=== PATIENT | female | born 1965 | race Caucasian/White ===

== ENCOUNTER 2019-05-05 09:00 | Outpatient (CLI) | payer OTHER, SELFPAY ==
[2019-05-05 09:38] LABS: Hematocrit 32.2 % (37.0-47.0); Hemoglobin 10.3 g/dL (12.0-15.0)
[2019-05-05 10:12] LABS: Iron 90 ug/dL (37-170)
[2019-05-05 10:22] LABS: Percent Iron Saturation 28 % (20-50)
[2019-05-05 10:56] LABS: Folic Acid 11.8 ng/mL (2.76->20)
== END 2019-05-05 09:01 | disposition home or self-care (01) ==
DX: D64.9 Anemia, unspecified (principal)
CPT/HCPCS: 36415; 82607; 82728; 82746; 83540; 83550; 85014; 85018

== ENCOUNTER 2019-05-06 12:37 | Outpatient (CLI) | payer OTHER, SELFPAY ==
[2019-05-06 14:14] LABS: IFOB Positive Control Positive; Immunochemical Fecal Occult Bl Negative (N)
== END 2019-05-06 12:38 | disposition home or self-care (01) ==
DX: D64.9 Anemia, unspecified (principal)
CPT/HCPCS: 82274

== ENCOUNTER 2019-07-02 01:34 | Observation (INO) | payer OTHER, SELFPAY ==
[2019-07-02] VITALS (19 sets, daily range): BP systolic 97–185; BP diastolic 62–92; PULSE 70–122; RESP 14–26; TEMP 36.2–37.2; O2SAT 94–100; BMI 31.7
--- NOTE | 2019-07-02 | ECHO_ITS ---
Patient Info Name: Viviane Escalera Age: 53 years : 1965 Gender: Female Ht: 64 in Wt: 185 lbs BSA: 1.98 m2 HR: 75 bpm BP: 116 / 85 mmHg Heart Rhythm: Sinus Rhythm Technical Quality: Good Exam Date: 07/02/2019 2:08 PM Exam Location: [facility] Patient Status: Inpatient Admit Date: 07/02/2019 Staff Ordering Physician: Vladimir Marquez MD Medical Instrument Technician: Jeremy Mcdonald RDCS Attending Provider: Autumn Francis DO Referring Physician: Alma ALVAREZ; Exam Type: CA echo doppler color flow Study Info Indications I30.9 - Acute pericarditis, unspecified Complete two-dimensional, color flow and Doppler transthoracic echocardiogram is performed. Strain analysis performed. History/Risk Factors Pericarditis; pAfib, CAP, HTN. Summary 1. Left ventricular chamber dimension is normal. 2. Left ventricular systolic function is hyperdynamic, estimated at >70%. 3. There is mildly increased left ventricular wall thickness. 4. Left ventricular septal wall motion is normal. 5. The left ventricular diastolic function is grade I diastolic dysfunction. 6. Global longitudinal strain is normal at -19 %. 7. Left atrial chamber dimension is mildly enlarged. 8. There is mild aortic valve stenosis with a peak velocity of 173 cm/s, mean gradient of 7 mmHg, and aortic valve area of 1.8 cm2. 9. There is mild to moderate aortic valve regurgitation. 10. There is mild aortic valve calcification. 11. There is mild tricuspid valve regurgitation. 12. Mild pulmonary hypertension, estimated pulmonary arterial systolic pressure is 43 mmHg. 13. There is mild pulmonic regurgitation. Left Ventricle Left ventricular chamber dimension is normal. Left ventricular systolic function is hyperdynamic, estimated at >70%. There is mildly increased left ventricular wall thickness. Left ventricular septal wall motion is normal. The left ventricular diastolic function is grade I diastolic dysfunction. Global longitudinal strain is normal at -19 %. Right Ventricle Right ventricular chamber dimension is normal. Right ventricular systolic function is normal. Left Atria Left atrial chamber dimension is mildly enlarged. Right Atria Right atrial chamber dimension is normal. Atrial Septum Intact interatrial septum visualized by color flow imaging. Aortic Valve The aortic valve is trileaflet. There is mild aortic valve stenosis with a peak velocity of 173 cm/s, mean gradient of 7 mmHg, and aortic valve area of 1.8 cm2. There is mild to moderate aortic valve regurgitation. There is mild aortic valve calcification. Pulmonic Valve The pulmonic valve is normal. There is no pulmonic valve stenosis. There is mild pulmonic regurgitation. Mitral Valve The mitral valve has normal leaflets. There is no mitral valve stenosis. There is trace mitral valve regurgitation. Tricuspid Valve The tricuspid valve leaflets are normal. There is no significant tricuspid valve stenosis. There is mild tricuspid valve regurgitation. Mild pulmonary hypertension, estimated pulmonary arterial systolic pressure is 43 mmHg. Pericardium/Pleural The pericardium appears normal. There is no pericardial effusion. Inferior Vena Cava Normal inferior vena cava with >50% collapse upon inspiration consistent with normal right atrial pressure, 5 mmHg. Aorta The aortic root size at the sinus of Valsalva is normal. The prox ascending aorta size is normal. Left Ventricular Outfl
--- NOTE | ~2019-07-02 | XR_ITS ---
EXAMINATION: XR chest 1V portable DATE: 07/02/2019 02:09 INDICATION: Midline chest pain TECHNIQUE: frontal view of the chest was obtained. COMPARISON: Chest radiograph dated 06/12/[address] dated 11/28/2017 FINDINGS: No significant interval change in diffuse basilar predominant coarse reticular opacities. No pleural effusion or pneumothorax. The cardiomediastinal silhouette is normal. Visualized bones and soft tissu es are unremarkable. IMPRESSION: 1. Slight increase in the basilar predominant coarse interstitial pattern most likely chronic interst itial fibrosis with either nonspecific interstitial pneumonia (NSIP) or desquamative interstitial pne umonia (DIP) pattern on prior chest CT. Superimposed more acute mild pulmonary edema or pneumonia not excludable. Reviewed, dictated and finalized at location A. IMPRESSION: 1. Slight increase in the basilar predominant coarse interstitial pattern most likely chronic interstitial fibrosis with either nonspecific interstitial pneum onia (NSIP) or desquamative interstitial pneumonia (DIP) pattern on prior chest CT. Superimposed more acute mild pulmonary edema or pneumonia not excludable.
--- NOTE | ~2019-07-02 | CT_ITS ---
EXAMINATION: CT abdomen pelvis w con DATE: 07/02/2019 03:19 INDICATION: Mid abdominal pain. Recent hernia surgery. TECHNIQUE: Computed tomography (CT) of the abdomen and pelvis was performed with 100 mL Omnipaque-350 intravenous contrast. Automated exposure control and iterative reconstruction technique were employe d. The dose-length product was 876.71 mGy-cm. COMPARISON: None FINDINGS: Chronic patchy groundglass opacities and septal line thickening throughout the bilateral lower lung z ones. Heart size is normal. No pericardial or pleural effusion. Small sliding-type hiatal hernia. Nataliia er, gallbladder, spleen, pancreas, bilateral adrenal glands and right kidney are normal. There are co uple left renal cysts the larger measuring 1.5 cm. Postoperative change of prior partial colectomy wi th anastomotic suture line along the distal colon. Scarring along the left lower quadrant anterior ab dominal wall likely at the site of a prior colostomy. Mild inflammatory stranding surrounding an ovoi d region of fat attenuation with central vessel located along the hepatic flexure of colon abutting t he fundus of the gallbladder most consistent with epiploic appendagitis. A couple similar-appearing r egions also suspicious for epiploic appendicitis along the distal transverse colon and greater curvat ure of the stomach. Small bowel and appendix are normal. Bladder is normal. The uterus is not identif ied and has likely been surgically resected. Small fat-containing left inguinal hernia. No free intra peritoneal gas or fluid. No pathologically enlarged abdominal or pelvic lymphadenopathy. No abscess o r free intraperitoneal gas or fluid. Bones are unremarkable. IMPRESSION: 1. Mild inflammatory stranding surrounding 3 small ovoid region of fat attenuation in the left and ri ght upper quadrants most consistent with epiploic appendagitis/fat necrosis. 2. Chronic bibasilar lung disease which could represent mild pulmonary edema, atelectasis or more chr onic interstitial fibrosis with nonspecific interstitial pneumonia (NSIP) or discriminative interstit ial pneumonia (DIP) pattern. Reviewed, dictated and finalized at location A. IMPRESSION: 1. Mild inflammatory stranding surrounding 3 small ovoid region of fat attenuat ion in the left and right upper quadrants most consistent with epiploic appenda gitis/fat necrosis. 2. Chronic bibasilar lung disease which could represent mild pulmonary edema, a telectasis or more chronic interstitial fibrosis with nonspecific interstitial pneumonia (NSIP) or discriminative interstitial pneumonia (DIP) pattern.
--- NOTE | 2019-07-02 01:43 | ECG_ITS ---
Measurements Intervals [place] Rate: 86 P: 30 TX: 157 QRS: -36 QRSD: 110 T: 38 QT: 364 QTc: 435 Interpretive Statements SINUS RHYTHM LEFT AXIS DEVIATION POOR R WAVE PROGRESSION, ANTERIOR LEADS BASELINE WANDER- II, III, AVF, V3-V6 BORDERLINE ECG Electronically Signed On 07-02-2019 7:20:52 CDT by Ayush Stewart D.O.
--- NOTE | 2019-07-02 01:58 | ED.CHESTPAIN ---
HPI - Chest Pain General Chief Complaint: Chest Pain Stated Complaint: cp Time Seen by Provider: 07/02/19 01:40 Source: RN notes reviewed History of Present Illness HPI narrative: Patient presents emergency department from home for chest pain. Patient states that pain woke her from sleep approximately 12:30 AM. The pain is located in the lower midsternal chest with radiation into the upper abdomen and in between the shoulder blades. The pain is described as sharp and stabbing patient notes associated nausea. Denies any fevers or chills vomiting or any other symptoms. Patient states she is chronically on 2 L nasal cannula history of pulmonary fibrosis Related Data Home Medications Medication Instructions Recorded Confirmed albuterol sulfate 07/02/19 atorvastatin 07/02/19 diltiazem HCl PO 07/02/19 fluticasone propionate INTRANASAL 07/02/19 furosemide 07/02/19 hydrocodone-acetaminophen tablet 07/02/19 ibuprofen 07/02/19 isosorbide mononitrate mg PO 07/02/19 lisinopril 07/02/19 mometasone-formoterol [Dulera] INHALATION 07/02/19 nitroglycerin mg 07/02/19 potassium chloride meq PO 07/02/19 sennosides-docusate sodium PO 07/02/19 [Senokot-S] sertraline mg 07/02/19 umeclidinium [Incruse Ellipta] INHALATION 07/02/19 Allergies Allergy/AdvReac Type Severity Reaction Status Date / Time No Known Allergies Allergy Verified 07/02/19 01:43 Review of Systems Review of Systems: Narrative: Gen.: Denies fevers or chills Eyes: Denies eye pain or visual change ENT: Denies congestion Respiratory: Denies shortness of breath or cough CV: Reports chest pain GI: Reports abdominal pain no nausea denies vomiting denies burning, urgency, frequency or hematuria Musculoskeletal: Denies back pain or muscle pain Neuro: Denies numbness, tingling, weakness or focal weakness Skin: Denies rash Except as documented, all other systems reviewed and negative [facility] Past Medical History Medical History (Updated 07/02/19 @ 05:28 by Marcelino Mcghee DO) Atrial fibrillation Hypertension Pulmonary fibrosis Social History Social History Smoking status: Heavy tobacco smoker Gender identity (if verbalized by the patient): Female Exam Narrative: Exam Narrative: APPEARANCE: No acute distress, nontoxic, resting in bed EYES: EOMI HEENT: Normocephalic, atraumatic, OMM RESPIRATORY: No respiratory distress Clear to auscultation bilaterally with no rhonchi wheezing or rales. CARDIOVASCULAR: Regular rate and rhythm without murmurs rubs or gallops. ABDOMINAL: Soft, nondistended, tender palpation epigastric and right upper quadrant left upper quadrant, no no tenderness in right lower quadrant left lower quadrant, no rebound or guarding MUSCULOSKELETAl: Moves all extremities. No clubbing, cyanosis or edema. NEURO: Awake and alert. Following commands, speech normal, no focal deficits SKIN:: Warm, dry. No rashes lesions or abrasions PSYCHIATRIC: Normal affect/mood, Course Course Emergency Course: Patient has minimal change with GI cocktail and Tylenol states pain is resolved following morphine Discussed with patient her x-ray and CT she states she has had no more cough than normal Discussed with Dr. yost presentation work-up. Agrees admission at this time. Agrees with plan for COVID testing and to treat patient with antibiotics as patient currently does have white count with CT scan showing groundglass opacities in lingula Discussed with patient and family results of workup and diagnosis. Discussed need for admission. Patient and family understand and agree to current treatment plan Vital Signs Vital signs: Vital Signs Temperature 99.0 F 07/02/19 01:38 Pulse Rate 89 07/02/19 01:38 Respiratory Rate 26 H 07/02/19 01:38 Blood Pressure 185/84 H 07/02/19 01:38 Pulse Oximetry 100 07/02/19 01:38 Temperature 99.0 F 07/02/19 01:38 Pulse Rate 91
[2019-07-02] MEDS: ONDANSETRON INJ 4 MG/2 ML VIAL IV PUSH ×2 (02:14→12:00)
[2019-07-02 02:26] LABS: Basophils Absolute Auto 0.1 K/mm3 (0.0-0.1); Basophils Percent Auto 0.6 % (0.2-1.2); Eosinophils Absolute Auto 0.3 K/mm3 (0-0.3); Hematocrit 37.9 % (37.0-47.0); Hemoglobin 12.4 g/dL (12.0-15.0); Immature Granulocyte Absolute 0.05 K/mm3 (0.00-0.031); Immature Granulocyte Percent A 0.3 % (0-0.5); Lymphocytes Absolute Auto 3.28 K/mm3 (0.9-3.2); Lymphocytes Percent Auto 20.4 % (18.3-44.2); Mean Corpuscular HGB Conc 32.7 g/dl (32-36); Mean Corpuscular Hemoglobin 30.9 pg (26-34); Mean Corpuscular Volume 94.5 fl (80-100); Mean Platelet Volume 10.5 fl (7.4-10.4); Monocytes Absolute Auto 1.2 K/mm3 (0.1-0.6); Monocytes Percent Auto 7.5 % (2.6-8.5); Neutrophils Absolute Auto 11.1 K/mm3 (1.3-6.7); Neutrophils Percent Auto 69.2 % (45.5-73.1); Platelet Count Result 353 k/mm3 (150-375); Red Blood Count 4.01 M/mm3 (4.2-5.4); Red Cell Distribution Width 12.9 % (11.5-14.5); White Blood Count 16.1 K/mm3 (4.5-10.0)
[2019-07-02 02:30] LABS: INR 0.9; Prothrombin Time 12.3 Seconds (11.1-14.7)
[2019-07-02 02:33] LABS: Alanine Aminotransferase 13 U/L (4-35); Albumin Level 4.3 g/dL (3.5-5.1); Alkaline Phosphatase 80 U/L (38-126); Aspartate Amino Transferase 22 U/L (14-36); Bilirubin,Total 0.1 mg/dL (0.2-1.3); Blood Urea Nitrogen 26 mg/dL (7-17); Calcium 9.1 mg/dL (8.4-10.2); Carbon Dioxide 28 mmol/L (22-30); Chloride 104 mmol/L (98-107); Estimated Glomerular Filt Rate 43; Glucose 106 mg/dL (65-105); Lipase 121 U/L (23-300); Potassium 3.7 mmol/L (3.4-5.0); Sodium 137 mmol/L (137-145)
[2019-07-02 02:43] LABS: Troponin I < 0.012 ng/mL (0.000-0.034)
[2019-07-02] MEDS: MORPHINE SULFATE 4 MG/ML INJ IV PUSH (04:07)
[2019-07-02] MEDS: ASPIRIN 81 MG CHEWABLE TABLET 324 MG PO (05:17)
--- NOTE | 2019-07-02 06:00 | ADMIMU ---
This patient, Viviane Escalera, was admitted to IMU status, and placed in Intensive Care Unit-6. Patient/family oriented to hospital policies and general routines including ID bracelet, bed and alarms, visiting hours, pain management, procedures, bathroom and other care routines, personal items, smoking policy, room service/diet, and visiting hours. Valuables list has been completed. Information on how to activate the Rapid Response Team has been discussed. Patient/Family are encouraged to report perceived risks to care and to ask questions if they do not understand what they are told or what they should do.
[2019-07-02] MEDS: FLUTICASONE PROPIONATE 0.05% NA SPR 16 GM BTL (*BKC) 2 SPRAY NASAL (09:23)
[2019-07-02] MEDS: ENOXAPARIN 40 MG/0.4 ML SYRINGE SUB-Q (09:24)
[2019-07-02] MEDS: POTASSIUM CHLORIDE 10 MEQ TABLET.ER PO (09:24)
[2019-07-02] MEDS: ATORVASTATIN 40 MG TABLET PO (09:24)
[2019-07-02 10:09] LABS: D Dimer 0.35 ug/mL (<0.48)
[2019-07-02 10:13] LABS: CRP 3.8 mg/dL (<1.0); Lactate Dehydrogenase 639 U/L (313-618)
[2019-07-02 10:20] LABS: Troponin I < 0.012 ng/mL (0.000-0.034)
--- NOTE | 2019-07-02 10:27 | PM.CNCAR ---
Assessment and Plan Additional Plan 53-year-old white female with: Acute onset of central chest pain awakening her from sleep at 2:00 a.m. in the morning. She describes a definite positional nature to the symptoms and appears to have a pericardial friction rub on exam. Her electrocardiogram however does not show the acute diffuse ST elevation of acute pericarditis. There is no evidence of an acute coronary syndrome. I am going to recommend treating this patient as though she has pericarditis with anti-inflammatory medication and colchicine for the time being. Her biomarkers will be followed and hopefully they will remain negative. She reports a history of paroxysmal atrial fibrillation for about 5 or 6 years she is currently in sinus rhythm and has not been on any medical therapy for her cardiac arrhythmia. Patient also carries the diagnosis of chronic interstitial pulmonary fibrosis which is interesting if she now may be presenting with pericardial symptoms. Moises Serna MD [facility] History of Present Illness History of Present Illness Consult date/time: Date of service: 07/02/19 10:27 Consult reason: chest pain Reason For Visit: Chest Pain, Community Aquired Pneumonia Narrative: This is a 53-year-old woman who I am told we are consulted to see because of chest pain. The chart does not indicate that anyone from primary Service has seen the patient and I really do not see a formal order on the chart ordering a consult but we were contacted through our nurse practitioner this morning. In any event this is a lady who is not known to me prior to this consultation. She awakened at 2:00 a.m. in the morning at her home because of chest pain she describes a relatively severe central substernal chest pain with radiation into the back into the interscapular region. The discomfort awakened her from sleep and was moderate to severe. She noticed no other associated symptoms such as air hunger diaphoresis or radiation of the pain anywhere else. She thought the symptoms might settle down she tried taking some antacids with no relief and eventually her took her to the emergency room to be evaluated. In the emergency room she was evaluated and admitted to the ICU for further assessment of this and according to what I understand to rule out Coronavirus. The patient is not known to have coronary artery disease. She states that she does follow with a classroom technology technician at [facility] because of a history of paroxysmal atrial fibrillation. She states she has had this diagnosis for about 5-6 years. She is not on any antiarrhythmic agents nor she anticoagulated. She states both of these issues were discussed with her by her classroom technology technician and it was determined at this time to avoid these agents. She can't really tell me if she has had any diagnosis made in terms of a cardiac structural reason for her atrial fibrillation. Presumably not since she has not been anticoagulated. She is not known to have any coronary artery disease or significant valvular disease she indicated to me that she thought her last echocardiogram by her classroom technology technician demonstrated modest aortic valve regurgitation. She is known to have chronic lung disease she was found to have chronic pulmonary fibrosis by a clinical evaluation and lung biopsy within the last 1-2 years at [facility]. She also is known to have diverticulosis/diverticulitis of the colon. She underwent a colon resection with a Jakub's pouch and then a revision takedown procedure about 6 months after the colon resection about 2 years previous. She is known to have hypertension she states she has no knowledge of diabetes or dyslipidemia. She states now that her chest pain is much less severe than it was in the middle of the night but still there. Her electrocardiogram does not show any acute changes of injury or ischemia. She has a troponin level on the record which is negative. Subsequent trop
--- NOTE | 2019-07-02 11:25 | PM.IMHP ---
H&P: HPI History of Present Illness Chief complaint: Chest Pain, Community Aquired Pneumonia Narrative: Date of visit 07/01. Viviane Escalera is a 53 year old female with history of pulmonary fibrosis chronic respiratory failure on 2 L nasal cannula level sleep at approximately 12:30 a.m. today with what she described is initially have a sensation in her lower center chest which became very sharp radiating to her back which was aggravated by deep inspiration or lying down. Got some relief from leaning to following. She did has some nausea but no diaphoresis or shortness of breath. Never had pain like this in the past. Had been evaluated for ischemic disease by nuclear stress test in the past that have always been negative, the last being approximately 2-3 years ago. Never anticoagulated or on antiarrhythmics . Cough has not changed from her chronic underlying cough and no fever or chills. Review of Systems Review of Systems: Narrative: Constitutional weight has gone down some but she says her appetite has been very good and no fever chills Eye no double vision [place] Mouth no pharyngitis laryngitis Pulmonary as per present illness CV no palpitations with the present illness no pedal edema GI does has some dysphagia intermittently usually with solid foods and has had EGDs in the past last been about 3 years ago no dysuria no hematuria Muscle skeletal no joint discomfort per se Integument no skin breakdown rashes Neuropsych no seizures no syncope PMFSH Past Medical History Medical History (Updated 07/02/19 @ 11:30 by Vladimir Marquez MD) Atrial fibrillation Community acquired pneumonia Hypertension Pulmonary fibrosis Surgical History Surgical History (Updated 07/02/19 @ 11:30 by Vladimir Marquez MD) H/O partial resection of colon History of lung biopsy Family History Family History (Updated 07/02/19 @ 11:32 by Vladimir Marquez MD) Mother , age 60, and lung ca Breast cancer of Breast Cancer. Father , metastatic carcinoma unknown primary at age 49 Lung cancer Sibling Brain cancer Social History Social History Smoking status: Former smoker Tobacco type: cigarettes Alcohol intake: never Substance use: never Gender identity (if verbalized by the patient): Female Spiritual care concerns: No Meds Home Medications and Allergies Home Medications Medication Instructions Recorded Confirmed Type albuterol sulfate 2.5 mg INHALATION Q4H PRN 07/02/19 07/02/19 History atorvastatin 40 mg PO DAILY 07/02/19 07/02/19 History diltiazem HCl 120 mg PO DAILY 07/02/19 07/02/19 History fluticasone propionate 2 spray INTRANASAL DAILY 07/02/19 07/02/19 History furosemide 20 mg PO DAILY 07/02/19 07/02/19 History hydrocodone-acetaminophen 1 tablet PO Q6H PRN 07/02/19 07/02/19 History ibuprofen 600 mg PO TID PRN 07/02/19 07/02/19 History isosorbide mononitrate 30 mg PO DAILY 07/02/19 07/02/19 History lisinopril 10 mg PO DAILY 07/02/19 07/02/19 History mometasone-formoterol [Dulera] 1 puff INHALATION BID 07/02/19 07/02/19 History nitroglycerin 0.4 mg SUBLINGUAL Q15M PRN 07/02/19 07/02/19 History potassium chloride 10 meq PO DAILY 07/02/19 07/02/19 History sennosides-docusate sodium 1 tablet PO DAILY PRN 07/02/19 07/02/19 History [Senokot-S] Allergies Allergy/AdvReac Type Severity Reaction Status Date / Time No Known Allergies Allergy Verified 07/02/19 01:43 Vital Signs Vital Signs - 24 hr 07/02/19 01:38 07/02/19 01:49 07/02/19 03:35 Temperature 37.2 C Pulse Rate 89 87 90 Respiratory Rate 26 H 19 Blood Pressure 185/84 H 129/69 Pulse Oximetry 100 96 100 07/02/19 04:07 07/02/19 05:36 07/02/19 06:00 Temperature Pulse Rate 91 94 87 Respiratory Rate 20 20 Blood Pressure 143/92 H 113/68 Pulse Oximetry 100 98 07/02/19 08:00 07/02/19 10:00 Temperature 37.0 C Pulse Rate 70 76 Respi
[2019-07-02] MEDS: COLCHICINE 0.6 MG TABLET PO ×2 (11:59→20:52)
[2019-07-02 13:25] LABS: SARS-CoV-2 RNA PCR Negative
--- NOTE | 2019-07-02 14:08 | PC.NURSE ---
Addendum entered by Clara Garcia RN 07/02/19 14:09: Pt transferred at 1335 Original Note: This patient, Viviane Escalera, was transferred to [[id number]] on 07/02/19 at 1408. Personal belongings sent with patient. Belongings list checked and signed with receiving [ ]. Report given to [Yolanda Key RN @ [phone] ]. Appropriate documentation sent with patient. Pt traveled by wheelchair.
[2019-07-02] MEDS: KETOROLAC 10 MG TABLET PO (17:13)
--- NOTE | 2019-07-02 18:56 | PCDIET ---
pt transferred from ICU 6 to room 210 at 1330
[2019-07-03] VITALS (10 sets, daily range): BP systolic 98–118; BP diastolic 61–79; PULSE 69–86; RESP 12–18; TEMP 36.1–37.1; O2SAT 94–98
--- NOTE | 2019-07-03 01:44 | PC.NURSE ---
Pt found to have wrong telemetry box in use. Correct box applied.
[2019-07-03 05:23] LABS: Potassium 4.2 mmol/L (3.4-5.0)
[2019-07-03 05:24] LABS: Basophils Absolute Auto 0.1 K/mm3 (0.0-0.1); Basophils Percent Auto 0.9 % (0.2-1.2); Eosinophils Absolute Auto 0.3 K/mm3 (0-0.3); Eosinophils Percent Auto 3.5 % (0-4.4); Hematocrit 34.4 % (37.0-47.0); Hemoglobin 11.3 g/dL (12.0-15.0); Immature Granulocyte Absolute 0.02 K/mm3 (0.00-0.031); Immature Granulocyte Percent A 0.3 % (0-0.5); Lymphocytes Absolute Auto 2.36 K/mm3 (0.9-3.2); Mean Corpuscular HGB Conc 32.8 g/dl (32-36); Mean Corpuscular Hemoglobin 30.8 pg (26-34); Mean Corpuscular Volume 93.7 fl (80-100); Mean Platelet Volume 10.6 fl (7.4-10.4); Monocytes Percent Auto 13.3 % (2.6-8.5); Neutrophils Absolute Auto 3.9 K/mm3 (1.3-6.7); Platelet Count Result 300 k/mm3 (150-375); Red Blood Count 3.67 M/mm3 (4.2-5.4); White Blood Count 7.6 K/mm3 (4.5-10.0)
[2019-07-03 06:58] LABS: Blood Urea Nitrogen 27 mg/dL (7-17); Calcium 8.7 mg/dL (8.4-10.2); Carbon Dioxide 23 mmol/L (22-30); Chloride 105 mmol/L (98-107); Estimated CRCL calculation 59 ml/min; Estimated Glomerular Filt Rate 58; Glucose 85 mg/dL (65-105); Sodium 135 mmol/L (137-145)
[2019-07-03] MEDS: ENOXAPARIN 40 MG/0.4 ML SYRINGE SUB-Q (10:06)
[2019-07-03] MEDS: FLUTICASONE PROPIONATE 0.05% NA SPR 16 GM BTL (*BKC) 2 SPRAY NASAL (10:06)
[2019-07-03] MEDS: FUROSEMIDE 20 MG TABLET PO (10:07)
[2019-07-03] MEDS: ISOSORBIDE MONONITRATE 30 MG TAB.ER.24H PO (10:07)
[2019-07-03] MEDS: ATORVASTATIN 40 MG TABLET PO (10:07)
[2019-07-03] MEDS: COLCHICINE 0.6 MG TABLET PO (10:07)
[2019-07-03] MEDS: POTASSIUM CHLORIDE 10 MEQ TABLET.ER PO (10:08)
[2019-07-03] MEDS: KETOROLAC 10 MG TABLET PO (10:11)
--- NOTE | 2019-07-03 10:45 | PM.PNCARD ---
Progress Note: A&P Assessment and Plan (1) Chest pain: Code(s): R07.9 - Chest pain, unspecified Status: Acute Assessment and Plan: Troponin negative x3. [place] to be pericarditis. Echocardiogram 07/02/2019: Left ventricular chamber dimension is normal. Left ventricular systolic function is hyperdynamic, estimated at >70%. There is mildly increased left ventricular wall thickness. Left ventricular septal wall motion is normal. The left ventricular diastolic function is grade I diastolic dysfunction. Global longitudinal strain is normal at -19 %. Left atrial chamber dimension is mildly enlarged. There is mild aortic valve stenosis with a peak velocity of 173 cm/s, mean gradient of 7 mmHg, and aortic valve area of 1.8 cm2. There is mild to moderate aortic valve regurgitation. There is mild aortic valve calcification. There is mild tricuspid valve regurgitation. Mild pulmonary hypertension, estimated pulmonary arterial systolic pressure is 43 mmHg. There is mild pulmonic regurgitation. Much improved. Discomfort under her left breast is almost gone. Most discomfort is between her shoulder blades but this is also improved significantly. More comfortable sitting up. Continue nonsteroidal anti-inflammatory (2) Atrial fibrillation: Code(s): I48.91 - Unspecified atrial fibrillation Status: Acute Assessment and Plan: Paroxysmal. Rate is for the most part controlled. She does have some excursions into the 130s. [id number] score is 3 given history of heart failure, HTN and female. Anticoagulation would be recommended. At this time she is being treated with anti-inflammatory. Anticoagulation should be discussed with her primary erisa attorney after the pericarditis resolves. Additional Plan She will follow up with her established erisa attorney [place] to discharge from cardiac standpoint Plan discussed with Dr Logan [id number] 07/03/2019 Subjective Date/time seen: 07/03/19 10:45 Interval history: Follow-up for: Chest pain Date of service: 07/03/2019 Subjective: Feeling much better. Pain under left breast almost completely resolved. The only discomfort she has has is between her shoulder blades. This discomfort is better when she sits up. Does intensify slightly low if she takes in a deep breath. She denied any shortness of breath. No lightheadedness. Review of Systems Constitutional: Constitutional: Denies chills Eyes: Eyes: Reports no additional eye complaints ENT: Reports Normal hearing present and Denies dizziness Cardiovascular: Cardiovascular: Reports chest pain (Almost completely resolved. Most now between shoulder blades) and Denies dyspnea Respiratory: Respiratory: Denies dyspnea Gastrointestinal: Gastrointestinal: Denies abdominal pain, Denies nausea and Denies vomiting Musculoskeletal: Musculoskeletal: Denies back pain Integumentary/Breasts: Skin/Breast: Denies swelling, Denies erythema and Denies rash Neurologic: Reports Normal hearing present Psychiatric: Psychiatric: Denies anxiety and Reports other (Has been under lot of stress) Endocrine: Endocrine: Denies fatigue Hematologic/Lymphatic: Hematologic/Lymphatic: Denies easy bleeding and Denies easy bruising Allergic/Immunologic: Allergic/Immunologic: Reports no additional allergic/immunologic complaints Exam Const: General: no acute distress Other: Awake, alert, in no distress. More comfortable today.. HENMT: Mouth: Yes dry mucous membranes Eyes: Sclera: sclerae normal Pupils: Equal, round and reactive pupils present Neck: Neck: supple and no JVD Resp: Effort & Inspection: normal respiratory effort and able to speak in complete sentences Auscultation: clear to auscultation bilaterally Other: Tubular breath sounds bilaterally Cardio: Rate: regular rate and tachycardic Rhythm: regular rhythm Heart sounds: Rub heart sound present (Resolved) Peripheral pulses: Peripheral pulses 2+ throughout GI: GI Palp: Ye
--- NOTE | 2019-07-04 07:22 | PM.DS ---
DS: Admitting Diagnosis Admitting Diagnosis Admitting Diagnosis: Chest pain, unspecified DS: Discharge Diagnosis Discharge Diagnosis (1) Chest pain: Code(s): R07.9 - Chest pain, unspecified Status: Acute Assessment and Plan: As per cardiology chest pain is positional and and worsen with deep inspiration which is compatible with pericarditis even though EKG showed no evidence. Troponins were negative and it did not appear to be ischemic. CRP borderline elevated. Echo mild and AI with no effusion and Cardiology started anti-inflammatories with colchicine with improvement of symptoms. WBC fell and d/c on naprosyn 500 bid (2) Leukocytosis: Code(s): D72.829 - Elevated white blood cell count, unspecified Status: Acute Assessment and Plan: Elevated white count could be stress, could be secondary to pericarditis, could be infectious. blood cultures were no growth but chronic pulmonary findings difficult to determine if there was an underlying infiltrate so she was empirically treated with antibiotics while here and discharged on 3 more days of levofloxacin 750 daily (3) Pulmonary fibrosis: Code(s): J84.10 - Pulmonary fibrosis, unspecified Status: Acute Assessment and Plan: Appears to be at her baseline. CT scan showed slight worsening of her fibrosis and was question 0f possibility of infiltrate so she is covered with antibiotics. COVID swab negative (4) Atrial fibrillation: Code(s): I48.91 - Unspecified atrial fibrillation Status: Acute Assessment and Plan: History of paroxysmally AFib. had short runs of intermittent AFib well on monitor which was asymptomatic.. Cardiology and myself encouraged her to follow-up with her care assistant and further discuss possible long-term anticoagulation. Especially did not want to institute now since she will be on anti-inflammatories and the pericarditis could have been precipitating more ectopy (5) Hypertension: Code(s): I10 - Essential (primary) hypertension Status: Acute Assessment and Plan: Pressure is toward the low side so her diltiazem diuretic and MIGUEL-inhibitor lung with nitrate were held. She has no history of coronary disease and could not give me a good reason why she is on the nitrate the lisinopril was continued to be held on discharge and she will follow-up with blood pressure check with her primary and care assistant DS: Summary Hospital Course Hospital Course: 53-year-old white female with history of paroxysmal AFib pulmonary fibrosis admitted with sharp chest pain aggravated by lying down and deep inspiration. Cardiology felt she had pericarditis and was treated with anti-inflammatories with improvement of symptoms. She had a mild leukocytosis which quickly returned to normal but with her underlying pulmonary fibrosis was empirically treated with antibiotics also. She will follow-up with her care assistant for further discussions about anticoagulation for AFib and her present illness. She will follow-up with her registered massage therapist in [place] for fibrosis Time Spent with Patient Time attestation: Total time spent providing and/or coordinating discharge services:35 minutes Exam Narrative: Exam Narrative: condition on discharge blood pressure 116/66 pulse 86 regular lungs faint dry basilar crackles CV faint systolic murmur lower left sternal border abdomen soft nontender extremities without edema neuro alert pleasant cooperative no focal deficits DS: Data Data Completed and Pending Labs on day of discharge: Preliminary micro results at discharge 07/02/19 05:20 Blood Culture - Preliminary Blood 07/02/19 05:06 Blood Culture - Preliminary Blood Discharge Plan Discharge Attending physician on discharge: Vladimir Marquez Consulting providers: Ashley Arguello Discharging Clinician: Vladimir Marquez Patient Disposition: Home, Self-Care Activity
== END 2019-07-03 15:30 | disposition home or self-care (01) ==
LOC: ANHED 05:00 → ANHICU 05:28 → ANHIMU 07-03 09:38 → ANHICU 07-08 11:50 → ANHIMU 07-08 11:50
PROVIDERS: Admitting Provider Internal Medicine; Emergency Provider Emergency Medicine; PCP Physician Assistant; Visit Provider Internal Medicine
DX: R07.9 Chest pain, unspecified (principal); D72.829 Elevated white blood cell count, unspecified; J84.10 Pulmonary fibrosis, unspecified; Z20.828 Contact with and (suspected) exposure to other viral communicable diseases; J96.10 Chronic respiratory failure, unspecified whether with hypoxia or hypercapnia; I48.91 Unspecified atrial fibrillation; I10 Essential (primary) hypertension; Z79.899 Other long term (current) drug therapy; Z87.891 Personal history of nicotine dependence; Z99.81 Dependence on supplemental oxygen
CPT/HCPCS: 36415; 71045; 74177; 80048; 80053; 83605; 83615; 83690; 84484; 85025; 85380; 85610; 85730; 86140; 87040; 87635; 93005; 93306; 94640; 96365; 96367; 96368; 96372; 96375; 99285; A9270; C9803; G0378; G0379; J0131; J0456; J0696; J1650; J2270; J2405; Q9967; U0003

== ENCOUNTER 2019-08-05 09:25 | Outpatient (CLI) | payer OTHER, SELFPAY ==
[2019-08-05 10:03] LABS: Blood Urea Nitrogen 18 mg/dL (7-17); Calcium 9.3 mg/dL (8.4-10.2); Carbon Dioxide 27 mmol/L (22-30); Chloride 104 mmol/L (98-107); Estimated Glomerular Filt Rate > 60; Glucose 91 mg/dL (65-105); Potassium 4.7 mmol/L (3.4-5.0); Sodium 136 mmol/L (137-145)
== END 2019-08-05 09:26 | disposition home or self-care (01) ==
DX: I48.0 Paroxysmal atrial fibrillation (principal); R06.00 Dyspnea, unspecified
CPT/HCPCS: 36415; 80048

== ENCOUNTER 2019-08-13 09:00 | Outpatient (RCR) | payer OTHER, SELFPAY ==
[2019-07-16 12:40] VITALS: BP_SYST 120
--- NOTE | 2019-07-16 13:44 | PTOPEVAL ---
Addendum entered by Sindy Smith, PT 07/16/19 15:26: Quick DASH self assessment functional score of 68% limitation in activity level. Original Note: PHYSICAL THERAPY EVALUATION AND PLAN OF CARE 07-16-2019 The PT evaluation was completed for the diagnosis of chronic R shoulder pain. Her plan of treatment is scheduled for 2x/week for 4 weeks. Thank you for referring Viviane Escalera to [facility]. Please review, sign, date and return this plan of care GUERA. I agree with and certify that the following plan of care is medically necessary. Referring Physician Date Attending Provider: Dr. Lenin Darnell *PT Outpatient Evaluation Start: 07/16/19 12:45 Document 07/16/19 12:40 CONNER (Rec: 07/16/19 13:44 CONNER [id number]) Outpatient Past Medical History Past Medical History Source of Past Medical History Patient Neurological History Hx Migraine Yes: 6x/month, last 3-6 hours- meds Cardiovascular History Hx Atrial Fibrillation Yes: recent hospitalization due to a-fib Hx Hypercholesterolemia Yes: meds Hx Hypertension Yes: meds Respiratory History Hx Chronic Obstructive Pulmonary Disease Yes: oxygen at 3 L, carry with (COPD) strap over shoulder Hx Other Respiratory Disorders Yes: Pulmonary Fibrosis Gastrointestinal History Hx Bowel Surgery Yes: Colostomy due to bowel perf and reversal July 2018 Hx Hernia Yes: Triple Hernia repair Mar 2019; one has returned-no lift over 8# Hx Other Gastrointestinal Disorders Yes: after hernia surgery, infection & hospitalized 3 weeks Genitourinary History Hx Genitourinary Disorders No Significant History Musculoskeletal History Hx Back Pain Yes: R hip and sciatic pain Hx Other Musculoskeletal Disorders Yes: B shoulder pain; Hematological History Hx Hematological Disorders No Significant History Endocrine History Hx Endocrine Disorders No Significant History HEENT History Hx Tonsillectomy Yes Integumentary History Hx Skin Disorders No Significant History Reproductive History Hx Section Yes: x3 Hx Hysterectomy Yes Psychosocial History Hx Anxiety Yes Hx Depression Yes: no longer take meds, doing OK Pain History History of Long-Term Prescription Pain Yes: Hydrocodone Medication Use (Opiates) Anesthesia History Hx Anesthesia Reactions No Significant History Evaluation Information Problem Diagnosis chronic R shoulder pain Onset May 2019 Subjective Information gradual increase in pain; no Query
--- NOTE | 2019-08-07 13:59 | PCPTNOTE ---
Patient did not show up for scheduled appointment this date, called and left a message.
--- NOTE | 2019-08-13 09:54 | PTOPEVAL ---
PHYSICAL THERAPY DISCHARGE 08-13-2019 Viviane has received 8 PT sessions, from July 15 to today, for the diagnosis of R chronic shoulder pain. Compared to the initial evaluation: pain rating is less at the low and high ratings; sleeping tolerance is about the same; self assessment with the Quick DASH has improved from 68 to 45% limitation in activity; AROM and PROM have improved for shoulder flexion, abduction and ER; IR is the same; she is independent with her home exercise program and motivated to continue with it. There is tenderness with palpation over the anterior GH joint/pec areas and most painful motions are abduction and IR. Thank you for referring Viviane Escalera to [facility]. Please review, sign, date and return this discharge GUERA. I agree with and certify that the following plan of care is medically necessary. Referring Physician Date Attending Provider: Dr. Lenin Darnell *PT Outpatient Discharge Document 08/13/19 09:08 CONNER (Rec: 08/13/19 09:46 CONNER [id number]) Subjective Information Viviane reports: shoulder feels Query Text:As Reported By Patient/ more flexible; still having Family pain, more at the end of the day/at night; both shoulders hurt; feels like need an injection in shoulder, has been about 5 months since last one; see pain management dr next week for back pain; do not have follow up with for shoulder; feels like she is ready to be done with PT and continue with her exercises at home; self assessment Quick DASH 45% limitation activity; Pain Assessment Timing of Pain Assessment Timing of Pain Assessment Assessment Pain Scale Pain Scale Used Numeric (1 - 10) Self Report Pain Assessment Right Shoulder(s) Reported Pain Level 4 Radicular Pain Location pressure,grind,stabbing; shoulder pops and feel moving in side of shoulder Pain Frequency Chronic Lowest Pain Intensity 2 Greatest Pain Intensity 7 Other Pain Aggravating Factors lie on shoulder 5-10 min; sleeping wake up every 30 min; Pain Relief Interventions Used By Exercise,Heat,Inactivity/Rest, Patient Medication Other Alleviating Interventions take hydrocodone for back, but helps shoulder;also take naproxen Additional Pain Comments sleep in bed and recliner 50% each;pain both shoulders;pain with carry oxyg Pain Score Pain Score 4: Self Report Additional Pain Score Comments
== END 2019-08-14 08:40 | disposition home or self-care (01) ==
LOC: ANHPT 09:00
DX: M25.511 Pain in right shoulder (principal); G89.29 Other chronic pain
CPT/HCPCS: 97110; 97140; 97161

== ENCOUNTER 2019-10-23 13:18 | Emergency (ER) | payer OTHER, SELFPAY ==
--- NOTE | 2019-10-23 13:25 | ED.GENADULT ---
HPI - General Adult General Chief complaint: Urogenital-Female Stated complaint: abd pain Time Seen by Provider: 10/23/19 13:33 Source: patient and RN notes reviewed Mode of arrival: ambulatory Limitations: no limitations History of Present Illness HPI narrative: 54-year-old old female with a history of pulmonary fibrosis, A. fib, diverticulitis presents with concern for urinary frequency, pain at the end of urination, left lower quadrant and suprapubic discomfort. Reports symptoms started Sunday. Patient has a baseline nasal cannula 2 L MD complaint: Dysuria Related Data Home Medications Medication Instructions Recorded Confirmed Dulera 1 puff INHALATION BID 07/02/19 10/23/19 albuterol sulfate 2.5 mg INHALATION Q4H PRN 07/02/19 10/23/19 atorvastatin 40 mg PO DAILY 07/02/19 10/23/19 diltiazem HCl 120 mg PO DAILY 07/02/19 07/02/19 fluticasone propionate 2 spray INTRANASAL DAILY 07/02/19 10/23/19 furosemide 20 mg PO DAILY 07/02/19 10/23/19 hydrocodone-acetaminophen 1 tablet PO Q6H PRN 07/02/19 10/23/19 isosorbide mononitrate 30 mg PO DAILY 07/02/19 07/02/19 nitroglycerin 0.4 mg SUBLINGUAL Q15M PRN 07/02/19 10/23/19 potassium chloride 10 meq PO DAILY 07/02/19 10/23/19 sennosides-docusate sodium 1 tablet PO DAILY PRN 07/02/19 10/23/19 [Senokot-S] gabapentin 300 mg PO DAILY 10/23/19 10/23/19 montelukast 10 mg PO DAILY 10/23/19 10/23/19 pantoprazole 40 mg PO QAM 10/23/19 10/23/19 sumatriptan succinate 25 mg PO ONCE PRN 10/23/19 10/23/19 Allergies Allergy/AdvReac Type Severity Reaction Status Date / Time No Known Allergies Allergy Verified 10/23/19 13:47 Review of Systems Review of Systems: Narrative: CONSTITUTIONAL: Denies malaise, chills, sweats, or fever. CARDIOVASCULAR: Denies chest pain, palpitations, or edema. RESPIRATORY: Denies cough or dyspnea. GASTROINTESTINAL: Denies abdominal pain, nausea, vomiting, diarrhea, bloody, or mucous stools. Reports intermittent left lower quadrant and suprapubic discomfort GENITOURINARY: Reports dysuria, frequency, urgency. Denies flank pain or hematuria. SKIN: Denies rash or itching. MUSCULOSKELETAL: Denies myalgia. All systems reviewed & are unremarkable except as noted in HPI and below PMFSH Past Medical History Medical History (Updated 10/23/19 @ 13:57 by Elsa Arce NP) Atrial fibrillation Community acquired pneumonia Hypertension Pulmonary fibrosis Surgical History Surgical History (Updated 07/02/19 @ 11:30 by Vladimir Marquez MD) H/O partial resection of colon History of lung biopsy Family History Family History (Updated 07/02/19 @ 11:32 by Vladimir Marquez MD) Mother , age 60, and lung ca Breast cancer of Breast Cancer. Father , metastatic carcinoma unknown primary at age 49 Lung cancer Sibling Brain cancer Social History Social History Smoking status: Former smoker Tobacco type: cigarettes Alcohol intake: never Substance use: never Gender identity (if verbalized by the patient): Female Spiritual care concerns: No Comments At time of signature, agree with nursing past medical, surgical, social and family history. There is no relevant family history pertinent to the presenting complaint Exam Narrative: Exam Narrative: GENERAL: Well-appearing, well-nourished, and in no acute distress. HEAD: Normocephalic. EYES: PERRLA, conjunctivae clear. NECK: Supple. No lymphadenopathy CHEST: Clear to auscultation. No respiratory distress. HEART: Regular rate and rhythm. No murmur heard. Normal peripheral pulses. ABDOMEN: Soft, suprapubic tenderness, otherwise nontender upon palpation, nondistended, normal active bowel sounds, no palpable or pulsatile masses, no guarding. No CVA tenderness SKIN: Warm, dry, no rash. NEURO: Alert and oriented x3. PSYCH: Normal mood and affect Course Course Emergency Course: Discussed with patient limited
[2019-10-23 13:28] VITALS: BP 141/81; PULSE 75; RESP 20; TEMP 37.2; O2SAT 98
== END 2019-10-23 14:01 | disposition home or self-care (01) ==
PROVIDERS: Emergency Provider Nurse Practitioner
DX: R30.0 Dysuria (principal); R35.0 Frequency of micturition; R39.15 Urgency of urination; R10.30 Lower abdominal pain, unspecified; R10.32 Left lower quadrant pain; I48.91 Unspecified atrial fibrillation; I10 Essential (primary) hypertension; J84.10 Pulmonary fibrosis, unspecified; Z87.891 Personal history of nicotine dependence
CPT/HCPCS: 81003; 87077; 87086; 87088; 87186; 99213; G0463

== ENCOUNTER 2019-12-24 07:13 | Outpatient (CLI) | payer OTHER, SELFPAY ==
--- NOTE | ~2019-12-24 | XR_ITS ---
EXAMINATION: XR chest 2V EXAM DATE: 12/24/2019 07:36 INDICATION: Dyspnea, cough, fever, wheezing, symptoms 10 days. History COPD and asthma. TECHNIQUE: Frontal and lateral projections of the chest obtained and reviewed. Comparison is made to prior examination from 07/02/2019. FINDINGS: Some chronic abnormal reticulation consistent with interstitial lung disease, which was id entified on prior chest CT 2017. No confluent consolidation, pneumothorax or pleural effusion suspect ed. There are no osseous abnormalities identified. IMPRESSION: Abnormal reticulation most likely patient's chronic interstitial lung disease. No defini te superimposed acute process. Reviewed, dictated and finalized at location A. 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 No definite superimposed acute process.
== END 2019-12-24 07:14 | disposition home or self-care (01) ==
LOC: ANHIMG 07:21
DX: R06.03 Acute respiratory distress (principal)
CPT/HCPCS: 71046

== ENCOUNTER 2020-01-03 07:16 | Outpatient (CLI) | payer OTHER, SELFPAY ==
[2020-01-03 08:58] LABS: Alanine Aminotransferase 16 U/L (4-35); Albumin Level 3.9 g/dL (3.5-5.1); Alkaline Phosphatase 71 U/L (38-126); Anion Gap 8 mmol/L (8-16); Aspartate Amino Transferase 24 U/L (14-36); Bilirubin,Total 0.5 mg/dL (0.2-1.3); Blood Urea Nitrogen 19 mg/dL (7-17); Calcium 9.4 mg/dL (8.4-10.2); Carbon Dioxide 28 mmol/L (22-30); Chloride 104 mmol/L (98-107); Cholesterol 223 mg/dL (0-200); Estimated Glomerular Filt Rate > 60; Glucose 95 mg/dL (65-105); HDL Direct 54 mg/dL; Potassium 4.1 mmol/L (3.4-5.0); Sodium 140 mmol/L (137-145); Triglycerides 103 mg/dL (<150)
[2020-01-03 09:09] LABS: LDL Cholesterol Direct 150 mg/dL
== END 2020-01-03 07:17 | disposition home or self-care (01) ==
DX: E78.00 Pure hypercholesterolemia, unspecified (principal)
CPT/HCPCS: 36415; 80053; 80061

== ENCOUNTER 2020-03-18 15:40 | Outpatient (CLI) | payer OTHER, SELFPAY ==
--- NOTE | ~2020-03-18 | XR_ITS ---
EXAMINATION: XR chest 2V DATE: 03/18/2020 16:09 INDICATION: Cough and shortness of breath. TECHNIQUE: Frontal and lateral views of the chest were obtained. COMPARISON: Chest 2 views 12/24/2019, CT abdomen and pelvis 07/02/2019, chest CT 11/28/2017 FINDINGS: There are chronic airspace and interstitial opacities in the mid and lower lung zones. Ther e is a staple line in right lung. No pleural effusion or pneumothorax. The heart size is normal. Ther e is a moderate-sized hiatal hernia. IMPRESSION: 1. Stable airspace and interstitial opacities in the mid and lower lung zones, consistent with chroni c interstitial lung disease. 2. Moderate-sized hiatal hernia. Reviewed, dictated and finalized at location A. 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 Stable airspace and interstitial opacities in the mid and lower lung zones, consistent with chronic interstitial lung disease. 2. Moderate-sized hiatal hernia.
== END 2020-03-18 15:41 | disposition home or self-care (01) ==
DX: R05 Cough (principal); K44.9 Diaphragmatic hernia without obstruction or gangrene; R91.8 Other nonspecific abnormal finding of lung field
CPT/HCPCS: 71046

== ENCOUNTER 2020-05-21 07:14 | Outpatient (CLI) | payer OTHER, SELFPAY ==
--- NOTE | ~2020-05-21 | XR_ITS ---
EXAMINATION: XR lumbar spine 2-3V DATE: 05/21/2020 07:37 INDICATION: Degenerative arthritis of lumbar spine. TECHNIQUE: 3 views of lumbar spine were obtained. COMPARISON: CT abdomen and pelvis 07/02/2019 FINDINGS: There is 5 degrees levocurvature of lumbar spine. Vertebral body heights are normal. There is mildly decreased disc height at L4-L5. There is multilevel facet joint osteoarthritis, severe bila terally at L5-S1 and on the left at L3-L4. IMPRESSION: 1. Mild lumbar spondylosis. Reviewed, dictated and finalized at location A. IMPRESSION: 1. Mild lumbar spondylosis.
== END 2020-05-21 07:15 | disposition home or self-care (01) ==
LOC: ANHIMG 07:23
DX: M47.816 Spondylosis without myelopathy or radiculopathy, lumbar region (principal)
CPT/HCPCS: 72100

== ENCOUNTER 2020-07-10 10:39 | Emergency (ER) | payer OTHER, SELFPAY ==
--- NOTE | ~2020-07-10 | XR_ITS ---
EXAMINATION: XR thoracic spine 3V DATE: 07/10/2020 11:11 INDICATION: Right back pain. TECHNIQUE: 3 views of thoracic spine were obtained. COMPARISON: Thoracic spine radiographs 02/20/2017 FINDINGS: There is 14 degrees levoscoliosis of thoracic spine. Vertebral body heights and interverteb ral disc heights are normal. There are endplate osteophytes at multiple levels. IMPRESSION: 1. Mild thoracic spondylosis. 2. Thoracic dextroscoliosis. Reviewed, dictated and finalized at location A.
--- NOTE | ~2020-07-10 | XR_ITS ---
EXAMINATION: XR lumbar spine 2-3V DATE: 07/10/2020 11:11 INDICATION: Low back pain. TECHNIQUE: 3 views of lumbar spine were obtained. COMPARISON: Lumbar spine radiographs 05/21/2020 FINDINGS: There is 4 degrees dextrocurvature of thoracolumbar spine. Vertebral body heights and inter vertebral disc heights are normal. There are endplate osteophytes at multiple levels. There is severe facet joint osteoarthritis in lower lumbar spine. IMPRESSION: 1. Mild lumbar spondylosis. Reviewed, dictated and finalized at location A. IMPRESSION: 1. Mild lumbar spondylosis.
--- NOTE | 2020-07-10 10:49 | ED.BACK ---
HPI - Back Pain/Injury General Chief Complaint: Back Pain/Injury Stated Complaint: back pain Time Seen by Provider: 07/10/20 10:50 History of Present Illness HPI Narrative: Viviane Escalera is a 54 yo female with a PMH of chronic back pain, pulmonary fibrosis, COPD, HTN, who comes to [facility] with complaints of both thoracic and lumbar pain that started after receiving a pain injection in her lumbar spine on Sunday yesterday her upper right thoracic spine with pain running under her trapezoid and today it is both thoracic and lumbar. She called her primary care physician who said she should be seen to be evaluated patient walked into exam room and does not appear grossly to have any neurological deficit. Patient has recent refills for hydrocodone; prescribed Narcan nasal spray in April, currently on gabapentin also Related Data Home Medications Medication Instructions Recorded Confirmed albuterol sulfate 2.5 mg INHALATION Q4H PRN 07/02/19 07/10/20 atorvastatin 40 mg PO DAILY 07/02/19 07/10/20 fluticasone propionate 2 spray INTRANASAL DAILY 07/02/19 07/10/20 furosemide 20 mg PO DAILY 07/02/19 07/10/20 hydrocodone-acetaminophen 1 tablet PO Q6H PRN 07/02/19 07/10/20 potassium chloride 10 meq PO DAILY 07/02/19 07/10/20 sennosides-docusate sodium 1 tablet PO DAILY PRN 07/02/19 07/10/20 [Senokot-S] gabapentin 300 mg PO DAILY 10/23/19 07/10/20 montelukast 10 mg PO DAILY 10/23/19 07/10/20 ondansetron 07/10/20 Allergies Allergy/AdvReac Type Severity Reaction Status Date / Time No Known Allergies Allergy Verified 10/23/19 13:47 Review of Systems Review of Systems: Narrative: CONSTITUTIONAL: Denies fever, chills, sweats. EYES: Denies visual changes, redness, discharge. ENT: Denies rhinorrhea, congestion, sore throat, otalgia. CARDIOVASCULAR: Denies chest pain, palpitations, edema. RESPIRATORY: Denies dyspnea, wheezing, cough GASTROINTESTINAL: Denies abdominal pain, nausea, vomiting, diarrhea. GENITOURINARY: Denies dysuria, hematuria, abnormal discharge SKIN: Denies rash or itching. NEUROLOGIC: Denies numbness, or focal weakness. PSYCHIATRIC: Denies anxiety or depression. Right thoracic and lower lumbar pain PMFSH Past Medical History Medical History Atrial fibrillation Community acquired pneumonia Hypertension Pulmonary fibrosis Surgical History Surgical History H/O partial resection of colon History of lung biopsy Family History Family History Mother , age 60, and lung ca Breast cancer of Breast Cancer. Father , metastatic carcinoma unknown primary at age 49 Lung cancer Sibling Brain cancer Social History Social History Smoking status: Former smoker Tobacco type: cigarettes Alcohol intake: never Substance use: never Gender identity (if verbalized by the patient): Female Spiritual care concerns: No Comments At time of signature, I agree with nursing past medical, surgical, social and family history. There is no relevant family history pertinent to the presenting complaint. Exam Narrative: Exam Narrative: GENERAL: This is a well-nourished, well-developed patient, in moderate distress. HEAD: normocephalic, atraumatic. EYES: Sclera clear/white. Vision is grossly intact. EARS: External ears normal. Hearing grossly intact. NOSE: External nose normal without nasal discharge, nares without redness, no rhinorrhea. Has a nasal nasal cannula for O2 in place THROAT: Mucous membranes moist, NECK: Neck supple, non-tender CARDIOVASCULAR: Regular rate and rhythm without murmurs, gallops, or rubs. RESPIRATORY: Clear to auscultation. Breath sounds equal bilaterally. No wheezes, rales, or rhonchi. GASTROINTESTINAL: Abdomen soft, non-tender, SKIN: w
[2020-07-10 10:50] VITALS: BP 136/88; PULSE 90; RESP 20; TEMP 36.1; O2SAT 98
== END 2020-07-10 11:54 | disposition home or self-care (01) ==
PROVIDERS: Emergency Provider Nurse Practitioner
DX: M54.5 Low back pain (principal); M54.6 Pain in thoracic spine; Z87.891 Personal history of nicotine dependence; I48.91 Unspecified atrial fibrillation; I10 Essential (primary) hypertension; J84.10 Pulmonary fibrosis, unspecified
CPT/HCPCS: 72072; 72100; 99213; G0463

== ENCOUNTER 2021-02-21 10:16 | Outpatient (CLI) | payer OTHER, SELFPAY ==
--- NOTE | ~2021-02-21 | XR_ITS ---
EXAMINATION: XR hip RT min 2V DATE: 02/21/2021 10:43 INDICATION: Right hip osteoarthritis. TECHNIQUE: 3 views of right hip were obtained. COMPARISON: None. FINDINGS: Bone alignment is normal. No fracture. There is mild right hip osteoarthritis characterized by tiny osteophytes. No joint space narrowing. IMPRESSION: 1. Mild right hip osteoarthritis. Reviewed, dictated and finalized at location B. [employer]
--- NOTE | ~2021-02-21 | XR_ITS ---
EXAMINATION: XR shoulder RT min 2V DATE: 02/21/2021 10:43 INDICATION: Right shoulder pain TECHNIQUE: AP internally and externally rotated, AP oblique externally rotated and axillary views of the right shoulder were obtained. COMPARISON: None FINDINGS: Normal alignment. No fracture. Glenohumeral joint is normal. Acromioclavicular joint is normal. No c ortical erosions. Mild upper thoracic dextrocurvature. Soft tissues are unremarkable. Suture line in the right midlung zone. IMPRESSION: No osseous abnormality at the right shoulder. Reviewed, dictated and finalized at location A. PHONE ORDER CLERK
== END 2021-02-21 10:17 | disposition home or self-care (01) ==
LOC: ANHIMG 10:24
PROVIDERS: Visit Provider Registered Nurse Pain Management
DX: M19.011 Primary osteoarthritis, right shoulder (principal); M16.11 Unilateral primary osteoarthritis, right hip
CPT/HCPCS: 73030; 73502

== ENCOUNTER 2021-03-16 10:21 | Emergency (ER) | payer OTHER, SELFPAY ==
--- NOTE | ~2021-03-16 | XR_ITS ---
EXAMINATION: XR chest 2V DATE: 03/16/2021 11:01 INDICATION: Shortness of breath and congestion post COVID TECHNIQUE: frontal and lateral views of the chest were obtained. COMPARISON: Chest radiograph dated 03/18/2020 FINDINGS: Increased interstitial pattern with some associated bronchial wall thickening in the bilateral perihi lar regions and lower lung zones. A few additional scattered linear bands of discoid atelectasis. No pleural effusion or pneumothorax. The cardiomediastinal silhouette is normal. Mild thoracic dextrocur vature with mild spondylosis. IMPRESSION: 1. Increased interstitial pattern and bronchial wall thickening in the bilateral perihilar regions an d lower lung zones which could represent mild pulmonary edema, reactive airway disease/asthma or bron chitis/early pneumonia. Reviewed, dictated and finalized at location A. EYBALL REFEREE IMPRESSION: 1. Increased interstitial pattern and bronchial wall thickening in the bilatera l perihilar regions and lower lung zones which could represent mild pulmonary e matty, reactive airway disease/asthma or bronchitis/early pneumonia.
--- NOTE | 2021-03-16 10:28 | ED.GENADULT ---
HPI - General Adult General Chief complaint: Upper Respiratory Infection Stated complaint: Shortness of Breath, Congestion,Bilateral Ear Time Seen by Provider: 03/16/21 10:29 Source: patient, RN notes reviewed and old records reviewed Mode of arrival: ambulatory Limitations: no limitations History of Present Illness HPI narrative: 55-year-old female who presents to [facility] with complaints of bilateral ear pain and can't hear out of her ears since Sunday,also has congestion and cough with shortness of breath and wheezing. Patient has long health history of lung problems of COPD and pulmonary fibrosis and is on oxygen at 2-3 L per nasal cannula. Patient was diagnosed with COVID on February 25 was unable to get mono-clonal antibodies but was treated with Paxlovid antiviral medication. Patient reports that she is to go back on cholesterol medications and antihypertensive medications today which she stopped while on the antiviral medication. Patient reports that she took nebulizer treatment at 0830 this morning. She is able to speak in full sentences with no acute dyspnea no tachypnea noted SAO2 100% with oxygen per nasal cannula at 2L. Related Data Home Medications Medication Instructions Recorded Confirmed albuterol sulfate 2.5 mg INHALATION Q4H PRN 07/02/19 03/16/21 atorvastatin 40 mg PO DAILY 07/02/19 03/16/21 hydrocodone-acetaminophen 1 tablet PO Q6H PRN 07/02/19 03/16/21 potassium chloride 10 meq PO DAILY 07/02/19 03/16/21 sennosides-docusate sodium 1 tablet PO DAILY PRN 07/02/19 03/16/21 [Senokot-S] gabapentin 300 mg PO DAILY 10/23/19 03/16/21 amlodipine 10 mg PO DAILY 03/16/21 03/16/21 famotidine 20 mg PO DAILY 03/16/21 03/16/21 sumatriptan succinate 6 mg SUBCUT PRN PRN 03/16/21 03/16/21 umeclidinium [Incruse Ellipta] 62.5 mcg INHALATION DAILY 03/16/21 03/16/21 Allergies Allergy/AdvReac Type Severity Reaction Status Date / Time piperacillin [From Zosyn] Allergy Intermediate Dyspnea / Verified 03/16/21 10:39 SOB tazobactam [From Zosyn] Allergy Intermediate Dyspnea / Verified 03/16/21 10:39 SOB Review of Systems Review of Systems: CONSTITUTIONAL: Denies any fever for over 1 week duration, no chills, or sweats. EYES: Denies visual changes, redness, or discharge. ENT: Positive for rhinorrhea, congestion,no sore throat, bilateral otalgia with decreased hearing. CARDIOVASCULAR: Denies chest pain, palpitations, or edema. RESPIRATORY: Positive for cough and dyspnea. GASTROINTESTINAL: Denies abdominal pain, nausea, vomiting, or diarrhea. GENITOURINARY: Denies dysuria or hematuria. SKIN: Denies rash or itching. MUSCULOSKELETAL: Chronic back pain, joint pain, or myalgia. NEUROLOGIC: some frontal headache, no numbness, or weakness. PSYCHIATRIC: Denies anxiety or depression. All systems reviewed & are unremarkable except as noted in HPI and below PMFSH Past Medical History Medical History (Updated 03/16/21 @ 12:07 by Ltaosha Ford NP) Atrial fibrillation Bronchitis Community acquired pneumonia COPD (chronic obstructive pulmonary disease) Hypertension Pneumonia Pulmonary fibrosis Surgical History Surgical History (Updated 03/16/21 @ 12:08 by Latosha Ford NP) H/O partial resection of colon H/O: hysterectomy History of lung biopsy History of tonsillectomy Previous section X3 Family History Family History Mother , age 60, and lung ca Breast cancer of Breast Cancer. Father , metastatic carcinoma unknown primary at age 49 Lung cancer Sibling Brain cancer Social History Social History (Updated 03/16/21 @ 12:09 by Latosha Ford NP) Smoking status: Former smoker Tobacco type: cigarettes Alcohol intake: never Substance use: current Substance use type: opiates Last use: current use of hydrocodone for chronic pain Living arrangements: with family Gender identity (if verbal
[2021-03-16 10:31] VITALS: BP 155/89; PULSE 73; RESP 18; TEMP 36.4; O2SAT 100
--- NOTE | 2021-03-16 10:52 | PC.NURSE ---
She is on oxygen 2 liters nasal canula.
== END 2021-03-16 11:31 | disposition home or self-care (01) ==
PROVIDERS: Emergency Provider Registered Nurse
DX: J44.1 Chronic obstructive pulmonary disease with (acute) exacerbation (principal); Z86.16 Personal history of COVID-19; Z87.891 Personal history of nicotine dependence; I48.91 Unspecified atrial fibrillation; I10 Essential (primary) hypertension; J84.10 Pulmonary fibrosis, unspecified
CPT/HCPCS: 71046; 99213; G0463

== ENCOUNTER 2021-08-18 10:38 | Emergency (ER) | payer OTHER, SELFPAY ==
--- NOTE | ~2021-08-18 | XR_ITS ---
EXAMINATION: XR scapula LT INDICATION: Left shoulder pain TECHNIQUE: Two views of the left scapula are obtained. COMPARISON: 11/06/2018 FINDINGS: Bone alignment is normal. There is no fracture. There is mild osteoarthritis at the acromio clavicular and glenohumeral joints. IMPRESSION: 1. No acute osseous abnormality. Reviewed, dictated and finalized at location B.
--- NOTE | 2021-08-18 10:55 | ED.GENADULT ---
HPI - General Adult General Chief complaint: Fall Stated complaint: fall Time Seen by Provider: 08/18/21 10:55 Source: patient, RN notes reviewed and old records reviewed Mode of arrival: ambulatory Limitations: no limitations History of Present Illness HPI narrative: 55-year-old female who presents to [facility] ambulatory with of walker with reports of sustaining a fall last night while taking a walk with her granddaughter. She states that she had to stop and rest and has seat on her walker and grand daughter was pushing her when one of the wheels went off sidewalk and she flipped backwards onto side walk.Patient reports that he hit back of her head on sidewalk with no LOC, has some soreness to back of her head with no dizziness visual changes or any nausea or neuro deficit noted. Patient reports that she hit her posterior left scapula area on the sidewalk also and she reports pain to area with increase with deep breaths and movement. Patient states that she took Ibuprofen and her pain medication this morning for her discomfort. MD complaint: fall Onset (ago): hour(s) (yesterday pm at 1930) Location: back (upper back scapular area) and left Treatments prior to arrival: NSAID and other (pain medication) Related Data Home Medications Medication Instructions Recorded Confirmed albuterol sulfate 2.5 mg/3 mL 2.5 mg inhalation Q4H PRN 07/02/19 08/18/21 (0.083 %) solution for nebulization Shortness Of Breath Or Wheezing atorvastatin 40 mg tablet 40 mg PO DAILY 07/02/19 08/18/21 hydrocodone 10 mg-acetaminophen 1 tablet PO Q6H PRN Moderate Pain 07/02/19 08/18/21 325 mg tablet (Scale Score 5-6) potassium chloride 10 mEq 10 meq PO DAILY 07/02/19 08/18/21 tablet,extended release sennosides 8.6 mg-docusate sodium 1 tablet PO DAILY PRN Constipation 07/02/19 08/18/21 50 mg tablet (Senokot-S) gabapentin 300 mg capsule 300 mg PO DAILY 10/23/19 08/18/21 amlodipine 10 mg tablet 10 mg PO DAILY 03/16/21 08/18/21 famotidine 20 mg tablet 20 mg PO DAILY 03/16/21 08/18/21 sumatriptan succinate 6 mg/0.5 mL 6 mg subcut PRN PRN Migraine 03/16/21 08/18/21 subcutaneous solution Headache umeclidinium 62.5 mcg/actuation 62.5 mcg inhalation DAILY 03/16/21 08/18/21 blister powder for inhalation (Incruse Ellipta) doxepin 10 mg capsule 10 mg DIRECTED 08/18/21 08/18/21 pantoprazole 40 mg tablet,delayed 40 mg PO DIRECTED 08/18/21 08/18/21 release Allergies Allergy/AdvReac Type Severity Reaction Status Date / Time piperacillin [From Zosyn] Allergy Intermediate Dyspnea / Verified 03/16/21 10:39 SOB tazobactam [From Zosyn] Allergy Intermediate Dyspnea / Verified 03/16/21 10:39 SOB Review of Systems Review of Systems: CONSTITUTIONAL: Denies fever, chills, or sweats. EYES: Denies visual changes, redness, or discharge. ENT: Denies rhinorrhea, congestion, sore throat, or otalgia. CARDIOVASCULAR: Denies chest pain, palpitations, or edema. RESPIRATORY: Denies any acute cough has dyspnea with minimal exertion on oxygen per nasal cannula at 3 liters, some pain with deep inspiration since fall GASTROINTESTINAL: Denies abdominal pain, nausea, vomiting, or diarrhea. GENITOURINARY: Denies dysuria or hematuria. SKIN: Denies rash or itching. MUSCULOSKELETAL: chronic lumbar back pain, left scapular pain from fall, or myalgia. NEUROLOGIC: Denies acute headache reports some soreness to back of head with no dizziness, visual changes, nausea or vomiting or any signs of neuro deficit, no numbness, or weakness. PSYCHIATRIC: History of anxiety or depression. All systems reviewed & are unremarkable except as noted in HPI and below PMFSH Past Medical History Medical History Atrial fibrillation Bronchitis Community acquired pneumonia COPD (chronic obstructive pulmonary disease) Hypertension Pneumonia Pulmonary fibrosis Surgical History Surgical History (Reviewed 08/18/21 @ 10:56 by Latosha Szymanski
[2021-08-18 11:12] VITALS: BP 134/76; PULSE 77; RESP 22; TEMP 36.9; O2SAT 100
== END 2021-08-18 12:18 | disposition home or self-care (01) ==
PROVIDERS: Emergency Provider Registered Nurse
DX: S09.90XA Unspecified injury of head, initial encounter (principal); M25.512 Pain in left shoulder; I48.91 Unspecified atrial fibrillation; I10 Essential (primary) hypertension; J44.9 Chronic obstructive pulmonary disease, unspecified; Z79.891 Long term (current) use of opiate analgesic; Z87.891 Personal history of nicotine dependence; W18.39XA Other fall on same level, initial encounter
CPT/HCPCS: 73010; 99213; G0463

== ENCOUNTER 2021-11-02 15:04 | Outpatient (CLI) | payer OTHER, SELFPAY ==
--- NOTE | ~2021-11-02 | CT_ITS ---
EXAMINATION: CT BRAIN W/O DATE: 11/02/2021 15:28 INDICATION: Recurrent headaches TECHNIQUE: Computed tomography (CT) of the head was performed without intravenous contrast. The dose- length product was 605.33 mGy-cm. Automated exposure control and iterative reconstruction technique w ere employed. COMPARISON: No prior studies for comparison. FINDINGS: Normal brain parenchymal volume for age. Normal daniels-white differentiation. No acute intrac ranial hemorrhage, infarction, mass or mass effect. No ventriculomegaly or midline shift. Midline sagittal images demonstrate a normal corpus callosum, c raniovertebral junction and sella turcica. Basilar cisterns are patent. Paranasal sinuses are pneumatized. There is a small left mastoid effusion. No depressed skull fractur es. IMPRESSION: 1. No acute intracranial abnormality. Reviewed, dictated and finalized at location A.
--- NOTE | ~2021-11-02 | XR_ITS ---
XR_CERV2-3V_CR DATE: 11/02/2021 15:43 INDICATION: Frequent headaches following a fall 6 weeks ago TECHNIQUE: AP, open-mouth, lateral views COMPARISON: None FINDINGS: There is reversal cervical curvature. There is levoscoliosis. There is minimal anterolisthesis at C2-3, C3-4 and C4-5. There is mild loss of interspace height at C5-C6. Remaining cervical interspaces are well preserved. C1 and C2 are normally aligned and the odontoid process is intact. No fracture or dislocation or lock ed facet or prevertebral soft tissue swelling. IMPRESSION: Reversal cervical curvature, mild levoscoliosis Minimal anterolisthesis at C2-3, C3-4 and C4-5 Mild loss of interspace height at C5-6 Reviewed, dictated and finalized at Location A. Reviewed, dictated and finalized at location B.
== END 2021-11-02 15:05 | disposition home or self-care (01) ==
DX: R51.9 Headache, unspecified (principal); M43.8X2 Other specified deforming dorsopathies, cervical region; M43.12 Spondylolisthesis, cervical region; M41.82 Other forms of scoliosis, cervical region
CPT/HCPCS: 70450; 72040

== ENCOUNTER 2022-04-27 15:18 | Emergency (ER) | payer OTHER, SELFPAY ==
--- NOTE | ~2022-04-27 | XR_ITS ---
EXAMINATION: XR chest 2V DATE: 04/27/2022 15:51 INDICATION: Cough. Chest tightness. TECHNIQUE: Frontal and lateral views of the chest were obtained. COMPARISON: Chest 2 views 03/16/2021, CT abdomen and pelvis 07/02/2019 FINDINGS: The lung volumes are normal. There is a chronic diffuse interstitial pattern in the lungs w ith a lower lung predominance. No pleural effusion or pneumothorax. The heart size is normal. IMPRESSION: 1. Stable chronic interstitial lung disease. Reviewed, dictated and finalized at location A.
[2022-04-27 15:31] VITALS: BP 149/85; PULSE 91; RESP 20; TEMP 36.6; O2SAT 96
--- NOTE | 2022-04-27 15:49 | ED.URI ---
HPI - URI/Sore Throat General Chief Complaint: Upper Respiratory Infection Stated Complaint: Lt Side and Back Pain Time Seen by Provider: 04/27/22 15:40 Source: patient Mode of arrival: ambulatory Limitations: no limitations History of Present Illness HPI Narrative: 56-year-old female who [facility] with complaints of sharp left lateral rib pain radiating to her scapula since Sunday. Patient reports that pain is worse with inspiration lying flat or on left side denies any recent injury. Patient reports loose/dry cough for 1 month duration, attempted Mucinex without any relief presently not taking any medicines for cough patient does have history of COPD pulmonary fibrosis emphysema is on 2 L of O2 per nasal cannula for the past 3 years after experiencing pneumonia. Patient denies any fever no known ill exposures. Patient has appointment with cotton baler on June 08. Patient has been using lidocaine patch [place] gabapentin Flexeril for her discomfort she has been using her nebulizer treatments for 5 days at home.Patient has been taking Hydrocodone, Flexeril, Gabapentin and using Lidocaine patch for her pain. MD elicited complaint: cough and other (left lateral rib pain radiating to back) Pertinent past history: pneumonia, COPD and other (pulmonary fibrosis,) Onset (ago): day(s) (5) Able to tolerate fluids by mouth: Yes Exacerbating factors: other (inspiraton,lying on back and left side) Associated symptoms: cough Treatments prior to arrival: other (pain medication,Lidocaine patch, flexeril, gabapentin) Related Data Home Medications Medication Instructions Recorded Confirmed albuterol sulfate 2.5 mg/3 mL 2.5 mg inhalation Q4H PRN 07/02/19 08/18/21 (0.083 %) solution for nebulization Shortness Of Breath Or Wheezing atorvastatin 40 mg tablet 40 mg PO DAILY 07/02/19 08/18/21 hydrocodone 10 mg-acetaminophen 1 tablet PO Q6H PRN Moderate Pain 07/02/19 08/18/21 325 mg tablet (Scale Score 5-6) potassium chloride 10 mEq 10 meq PO DAILY 07/02/19 08/18/21 tablet,extended release sennosides 8.6 mg-docusate sodium 1 tablet PO DAILY PRN Constipation 07/02/19 08/18/21 50 mg tablet (Senokot-S) gabapentin 300 mg capsule 300 mg PO DAILY 10/23/19 08/18/21 amlodipine 10 mg tablet 10 mg PO DAILY 03/16/21 08/18/21 famotidine 20 mg tablet 20 mg PO DAILY 03/16/21 08/18/21 sumatriptan succinate 6 mg/0.5 mL 6 mg subcut PRN PRN Migraine 03/16/21 08/18/21 subcutaneous solution Headache umeclidinium 62.5 mcg/actuation 62.5 mcg inhalation DAILY 03/16/21 08/18/21 blister powder for inhalation (Incruse Ellipta) doxepin 10 mg capsule 10 mg DIRECTED 08/18/21 08/18/21 pantoprazole 40 mg tablet,delayed 40 mg PO DIRECTED 08/18/21 08/18/21 release Allergies Allergy/AdvReac Type Severity Reaction Status Date / Time piperacillin [From Zosyn] Allergy Intermediate Dyspnea / Verified 04/27/22 15:40 SOB tazobactam [From Zosyn] Allergy Intermediate Dyspnea / Verified 04/27/22 15:40 SOB Review of Systems Review of Systems: CONSTITUTIONAL: Denies fever, chills, or sweats. EYES: Denies visual changes, redness, or discharge. ENT: Denies rhinorrhea, congestion, sore throat, or otalgia. CARDIOVASCULAR: Denies chest pain, palpitations, or edema. RESPIRATORY: Positive for cough some dyspnea, on oxygen at 2L per nasal cannula. GASTROINTESTINAL: Denies abdominal pain, nausea, vomiting, or diarrhea. GENITOURINARY: Denies dysuria or hematuria. SKIN: Denies rash or itching. MUSCULOSKELETAL: Positive left lateral rib pain radiating to back pain, joint pain, or myalgia. NEUROLOGIC: Denies headache, numbness, or weakness. PSYCHIATRIC: Denies anxiety or depression. All systems reviewed & are unremarkable except as noted in HPI and below PMFSH Past Medical History Medical History Atrial fibrillation Bronchitis Community acquired pneumonia COPD (chronic obstructive pulmonary disease
--- NOTE | 2022-04-27 16:05 | ECG_ITS ---
Measurements Intervals [place] Rate: 72 P: 49 MA: 190 QRS: -43 QRSD: 108 T: 52 QT: 387 QTc: 424 Interpretive Statements SINUS RHYTHM LEFT AXIS DEVIATION POSSIBLE LEFT ATRIAL ENLARGEMENT INCOMPLETE RIGHT BUNDLE BRANCH BLOCK BASELINE ARTIFACT- I, II, III, AVR, AVL, AVF, V1-V2, V6 BORDERLINE ECG COMPARED TO ECG 07/02/2019 01:41:29 INCOMPLETE RIGHT BUNDLE-BRANCH BLOCK NOW PRESENT Electronically Signed On 04-27-2022 16:17:37 CDT by Ayush Stewart D.O.
== END 2022-04-27 16:51 | disposition home or self-care (01) ==
PROVIDERS: Emergency Provider Registered Nurse
DX: R05.1 Acute cough (principal); R07.89 Other chest pain; Z87.891 Personal history of nicotine dependence; I48.91 Unspecified atrial fibrillation; J44.9 Chronic obstructive pulmonary disease, unspecified; I10 Essential (primary) hypertension; J84.10 Pulmonary fibrosis, unspecified
CPT/HCPCS: 71046; 93005; 99213; G0463

== ENCOUNTER 2023-07-04 15:20 | Emergency (ER) | payer OTHER, SELFPAY ==
[2023-07-04 15:29] VITALS: BP 140/88; PULSE 80; RESP 18; TEMP 36.4; O2SAT 98
--- NOTE | 2023-07-04 16:06 | ED.NECK ---
HPI - Neck Pain/Injury General Chief Complaint: Neck Pain/Injury Stated Complaint: Neck pain Time Seen by Provider: 07/04/23 15:57 Source: patient and RN notes reviewed Mode of arrival: ambulatory Limitations: no limitations History of Present Illness HPI Narrative: Patient presents today complaining of left-sided neck pain x3 weeks. Denies any injury or trauma, but states it feels like a pulled muscle. Denies numbness or tingling in the left arm or hand. She does states the the neck pain does cause headaches at times. It is worse when she is trying to laid down for bed. She has tried ibuprofen and Aleve without much relief. She is chronically ill and takes narcotic pain medicine as well as gabapentin. States these medications are also of no help. Pain increases with movement of the head. Related Data Home Medications Medication Instructions Recorded Confirmed albuterol sulfate 2.5 mg/3 mL 2.5 mg inhalation Q4H PRN 07/02/19 08/18/21 (0.083 %) solution for nebulization Shortness Of Breath Or Wheezing atorvastatin 40 mg tablet 40 mg PO DAILY 07/02/19 08/18/21 hydrocodone 10 mg-acetaminophen 1 tablet PO Q6H PRN Moderate Pain 07/02/19 08/18/21 325 mg tablet (Scale Score 5-6) potassium chloride 10 mEq 10 meq PO DAILY 07/02/19 08/18/21 tablet,extended release sennosides 8.6 mg-docusate sodium 1 tablet PO DAILY PRN Constipation 07/02/19 08/18/21 50 mg tablet (Senokot-S) gabapentin 300 mg capsule 300 mg PO DAILY 10/23/19 08/18/21 amlodipine 10 mg tablet 10 mg PO DAILY 03/16/21 08/18/21 famotidine 20 mg tablet 20 mg PO DAILY 03/16/21 08/18/21 sumatriptan succinate 6 mg/0.5 mL 6 mg subcut PRN PRN Migraine 03/16/21 08/18/21 subcutaneous solution Headache umeclidinium 62.5 mcg/actuation 62.5 mcg inhalation DAILY 03/16/21 08/18/21 blister powder for inhalation (Incruse Ellipta) doxepin 10 mg capsule 10 mg DIRECTED 08/18/21 08/18/21 pantoprazole 40 mg tablet,delayed 40 mg PO DIRECTED 08/18/21 08/18/21 release Allergies Allergy/AdvReac Type Severity Reaction Status Date / Time piperacillin [From Zosyn] Allergy Intermediate Dyspnea / Verified 04/27/22 15:40 SOB tazobactam [From Zosyn] Allergy Intermediate Dyspnea / Verified 04/27/22 15:40 SOB Review of Systems Review of Systems: CONSTITUTIONAL: Denies body aches, fever, chills, or sweats. EYES: Denies visual changes, redness, or discharge. ENT: Denies rhinorrhea, congestion, sore throat, or otalgia. CARDIOVASCULAR: Denies chest pain, palpitations, or edema. RESPIRATORY: Denies cough or dyspnea. GASTROINTESTINAL: Denies abdominal pain, nausea, vomiting, or diarrhea. GENITOURINARY: Denies dysuria or hematuria. SKIN: Denies rash, itching, or wounds. MUSCULOSKELETAL: + neck pain NEUROLOGIC: Denies headache, numbness, tingling, or weakness. PSYCH: Denies depression or anxiety. [facility] Past Medical History Medical History Atrial fibrillation Bronchitis Community acquired pneumonia COPD (chronic obstructive pulmonary disease) Hypertension Pneumonia Pulmonary fibrosis Surgical History Surgical History H/O partial resection of colon H/O: hysterectomy History of lung biopsy History of tonsillectomy Previous section X3 Family History Family History Mother , age 60, and lung ca Breast cancer of Breast Cancer. Father , metastatic carcinoma unknown primary at age 49 Lung cancer Sibling Brain cancer Social History Social History Smoking status: Former smoker Tobacco type: cigarettes Alcohol intake: never Substance use: current Substance use type: opiates Last use: current use of hydrocodone for chronic pain Living arrangements: with [facility]
== END 2023-07-04 16:00 | disposition home or self-care (01) ==
PROVIDERS: Emergency Provider Nurse Practitioner
DX: M62.838 Other muscle spasm (principal); Z87.891 Personal history of nicotine dependence; I48.91 Unspecified atrial fibrillation; J44.9 Chronic obstructive pulmonary disease, unspecified; I10 Essential (primary) hypertension; J84.10 Pulmonary fibrosis, unspecified
CPT/HCPCS: 99213; G0463

== ENCOUNTER 2023-10-18 09:11 | Emergency (ER) | payer OTHER, SELFPAY ==
--- NOTE | ~2023-10-18 | XR_ITS ---
EXAMINATION: XR chest 2V DATE: 10/18/2023 10:08 INDICATION: Shortness of breath TECHNIQUE: PA and lateral views of the chest were obtained. COMPARISON: Chest radiograph dated 04/27/2022 FINDINGS: Increased interstitial pattern in the bilateral mid and lower lung zones. Unchanged bibasilar discoid atelectasis/scarring at the lateral right mid and lower lung zones. No pleural effusion or pneumotho rax. The cardiomediastinal silhouette is normal. IMPRESSION: 1. Interval increase in interstitial pattern in the bilateral mid and lower lung zones which could re present mild pulmonary edema, pneumonia or chronic interstitial lung disease. Reviewed, dictated and finalized at location A. IMPRESSION: 1. Interval increase in interstitial pattern in the bilateral mid and lower katerine g zones which could represent mild pulmonary edema, pneumonia or chronic inters titial lung disease.
[2023-10-18 09:20] VITALS: O2SAT 100
--- NOTE | 2023-10-18 09:20 | ECG_ITS ---
Test Date: 2023-10-18 09:52:35 Measurements Intervals [place] Rate: 64 P: 56 ID: [id number] QRS: -12 QRSD: 93 T: 40 QT: 392 QTc: 406 Interpretive Statements SINUS RHYTHM DELAYED PRECORDIAL R/S TRANSITION CONSIDER INFERIOR INFARCT, AGE INDETERMINATE BASELINE ARTIFACT- I, II, AVR, AVL ABNORMAL ECG No previous ECG available for comparison Electronically Signed On 10-18-2023 11:04:05 CDT by Ayush Stewart D.O.
[2023-10-18 09:45] VITALS: PULSE 80; RESP 16; TEMP 36.4; O2SAT 94
[2023-10-18 10:03] LABS: Basophils Absolute Auto 0.1 K/mm3 (0.0-0.1); Basophils Percent Auto 0.7 % (0.2-1.2); Eosinophils Absolute Auto 0.1 K/mm3 (0-0.3); Eosinophils Percent Auto 1.2 % (0-4.4); Hematocrit 42.1 % (37.0-47.0); Immature Granulocyte Absolute 0.03 K/mm3 (0.00-0.031); Immature Granulocyte Percent A 0.3 % (0-0.5); Lymphocytes Absolute Auto 2.51 K/mm3 (0.9-3.2); Lymphocytes Percent Auto 24.1 % (18.3-44.2); Mean Corpuscular HGB Conc 33.3 g/dl (32-36); Mean Corpuscular Hemoglobin 31.5 pg (26-34); Mean Corpuscular Volume 94.8 fl (80-100); Mean Platelet Volume 9.9 fl (7.4-10.4); Monocytes Absolute Auto 0.9 K/mm3 (0.1-0.6); Monocytes Percent Auto 8.4 % (2.6-8.5); Neutrophils Absolute Auto 6.8 K/mm3 (1.3-6.7); Neutrophils Percent Auto 65.3 % (45.5-73.1); Platelet Count Result 353 k/mm3 (150-375); Red Blood Count 4.44 M/mm3 (4.2-5.4); White Blood Count 10.4 K/mm3 (4.5-10.0)
[2023-10-18 10:15] LABS: Alanine Aminotransferase 15 U/L (6-35); Albumin Level 4.6 g/dL (3.5-5.1); Alkaline Phosphatase 71 U/L (38-126); Anion Gap 11 mmol/L (4-12); Aspartate Amino Transferase 28 U/L (14-36); Bilirubin,Total 0.8 mg/dL (0.2-1.3); Blood Urea Nitrogen 15 mg/dL (7-17); Calcium 9.9 mg/dL (8.4-10.2); Carbon Dioxide 25 mmol/L (22-30); Chloride 101 mmol/L (98-107); Estimated CRCL calculation 57 ml/min; Estimated Glomerular Filt Rate > 60; Glucose 86 mg/dL (65-110); Potassium 4.3 mmol/L (3.4-5.0); Sodium 137 mmol/L (137-145)
--- NOTE | 2023-10-18 11:12 | ED.SOB ---
HPI - SOB/Dyspnea General Chief Complaint: Shortness of Breath/Dyspnea Stated Complaint: SOB Time Seen by Provider: 10/18/23 10:53 History of Present Illness HPI Narrative: Patient presenting with increased shortness of breath and cough the last 10 days, worse over the last week. Related Data Home Medications Medication Instructions Recorded Confirmed albuterol sulfate 2.5 mg/3 mL 2.5 mg inhalation Q4H PRN 07/02/19 08/18/21 (0.083 %) solution for nebulization Shortness Of Breath Or Wheezing atorvastatin 40 mg tablet 40 mg PO DAILY 07/02/19 08/18/21 hydrocodone 10 mg-acetaminophen 1 tablet PO Q6H PRN Moderate Pain 07/02/19 08/18/21 325 mg tablet (Scale Score 5-6) potassium chloride 10 mEq 10 meq PO DAILY 07/02/19 08/18/21 tablet,extended release sennosides 8.6 mg-docusate sodium 1 tablet PO DAILY PRN Constipation 07/02/19 08/18/21 50 mg tablet (Senokot-S) gabapentin 300 mg capsule 300 mg PO DAILY 10/23/19 08/18/21 amlodipine 10 mg tablet 10 mg PO DAILY 03/16/21 08/18/21 famotidine 20 mg tablet 20 mg PO DAILY 03/16/21 08/18/21 sumatriptan succinate 6 mg/0.5 mL 6 mg subcut PRN PRN Migraine 03/16/21 08/18/21 subcutaneous solution Headache umeclidinium 62.5 mcg/actuation 62.5 mcg inhalation DAILY 03/16/21 08/18/21 blister powder for inhalation (Incruse Ellipta) doxepin 10 mg capsule 10 mg DIRECTED 08/18/21 08/18/21 pantoprazole 40 mg tablet,delayed 40 mg PO DIRECTED 08/18/21 08/18/21 release Allergies Allergy/AdvReac Type Severity Reaction Status Date / Time piperacillin [From Zosyn] Allergy Intermediate Dyspnea / Verified 04/27/22 15:40 SOB tazobactam [From Zosyn] Allergy Intermediate Dyspnea / Verified 04/27/22 15:40 SOB Review of Systems Review of Systems: All systems reviewed & are unremarkable except as noted in HPI and below PMFSH Past Medical History Medical History Atrial fibrillation Bronchitis Community acquired pneumonia COPD (chronic obstructive pulmonary disease) Hypertension Pneumonia Pulmonary fibrosis Surgical History Surgical History H/O partial resection of colon H/O: hysterectomy History of lung biopsy History of tonsillectomy Previous section X3 Family History Family History Mother , age 60, and lung ca Breast cancer of Breast Cancer. Father , metastatic carcinoma unknown primary at age 49 Lung cancer Sibling Brain cancer Social History Social History Smoking status: Former smoker Tobacco type: cigarettes Alcohol intake: never Substance use: current Substance use type: opiates Last use: current use of hydrocodone for chronic pain Living arrangements: with family Gender identity (if verbalized by the patient): Female Spiritual care concerns: No Exam Narrative: EXAMINATION OF ORGAN SYSTEMS/BODY AREAS: Constitutional: Vital signs per nursing GENERAL:[No acute distress, non-toxic appearing.] HEAD: Normal with no signs of head trauma. EYES: EOMI, conjunctiva normal ENT: Hearing grossly intact LUNGS: Nonlabored breathing. Speaking in full sentences, diffuse wheezing all lung sanchez HEART: [Regular rate and rhythm] ABD: No distension EXT: Normal range of motion SKIN: [No rashes or lesions.] NEURO: [Alert and oriented x 3. No gross focal sensory or strength deficits.] PSYCH: Normal affect Course Vital Signs Vital signs: Vital Signs Pulse Oximetry 100 10/18/23 09:20 Oxygen Delivery Nasal Cannula 10/18/23 09:20 Oxygen Flow Rate 3 10/18/23 09:20 Temperature 97.1 F L 10/18/23 12:54 Pulse Rate 92 10/18/23 12:54 Respiratory Rate 18 10/18/23 12:54 Blood Pressure 139/80 10/18/23 12:54 Pulse Oximetry 98
[2023-10-18 11:24] LABS: NT Pro B Type Natriuretic Pept 138 pg/mL (19.9-100)
[2023-10-18] MEDS: IPRATROPIUM BR 0.02% INH SOLN 0.5 MG/2.5 ML VIAL 1 MG INHALATION (11:35)
[2023-10-18] MEDS: ALBUTEROL SULFATE NEB 2.5 MG/3 ML INH 15 MG INHALATION (11:36)
[2023-10-18] MEDS: AZITHROMYCIN 250 MG TABLET 500 MG PO (11:37)
[2023-10-18 11:38] VITALS: PULSE 67; RESP 25
[2023-10-18] MEDS: predniSONE 20 MG TABLET 40 MG PO (11:38)
[2023-10-18 11:39] VITALS: BP 135/82; PULSE 73; RESP 14; O2SAT 95
[2023-10-18 12:49] VITALS: PULSE 95; RESP 20
[2023-10-18 12:54] VITALS: BP 139/80; PULSE 92; RESP 18; TEMP 36.2; O2SAT 98
== END 2023-10-18 12:58 | disposition home or self-care (01) ==
LOC: ANHED 11:58
PROVIDERS: Physician Assistant; Emergency Provider Emergency Medicine
DX: J44.1 Chronic obstructive pulmonary disease with (acute) exacerbation (principal); I48.91 Unspecified atrial fibrillation; I10 Essential (primary) hypertension; J84.10 Pulmonary fibrosis, unspecified; Z90.49 Acquired absence of other specified parts of digestive tract; Z87.891 Personal history of nicotine dependence; Z79.51 Long term (current) use of inhaled steroids; Z79.891 Long term (current) use of opiate analgesic
CPT/HCPCS: 36415; 71046; 80053; 83880; 85025; 93005; 94640; 99284; A9270; J7512

== ENCOUNTER 2024-09-19 08:39 | Outpatient (CLI) | payer OTHER, SELFPAY ==
--- OUTSIDE RECORDS SUMMARY | 2024-09-19 08:48 | XMS_ITS | Encounter Summary ---
Author Organization [facility] Address [address] [place] [address] Care Team Providers Care Polishing Wheel Setter Name Role Phone Madonna Smith DO Primary Care Provider [phone] Rl Jones [facility] Primary Care Provide r Celestina Machado [facility] Primary Care Provider [phone] Kellie Edmonds [facility] Primary Care Provider [phone] Madonna Simth DO Primary Care Provider [phone] Vernell Olguin DO Primary Care Provider [phone] Madonna Smith DO Unavailable [phone] Encounter Details Date Type Department Care Team (Late st Contact Info) Description 12/04/2019 Telephone [facility], Critical Care and Sleep Medicine [address] [place] [address] Garret Harkins MD [address] [facility] [address] Social History Tobacco Use Types Packs/Day Years Used Date Smoking Tobacco: Former Cigarettes 1.5 20.9 1 999 - 01/12/2019 Smokeless Tobacco: Never Alcohol Use Standard Drinks/Week Comments Not Currently 0 (1 standard drink = 0.6 oz pur e alcohol) Comments No Sex and Gender Information Value Date Recorded Sex Assigned at Not on file Legal Sex Female 5:58 PM DIAMOND DIE MAKER Gender Identity Not on file Sexual Orientation Not on file documented as of this encounter Functional Status * Is person deaf or have serious hearing difficulty? Answer Date of Assessment Author No 04/07/2019 3:39 PM Loco Ozuna RN * Is person blind or have serious difficulty seeing? Answer Date of Assessment Author No 04/07/2019 3:39 PM Loco Ozuna RN * Does person have serious difficulty walking/climbing stairs? Answer Date of Assessment Author No 04/07/2019 3:39 PM Loco Ozuna RN * Does person have difficulty dressing/bathing? Answer Date of Assessment Author No 04/07/2019 3:39 PM Loco Ozuna RN * Does person have difficulty doing errands alone? Answer Date of Assessment Author No 04/07/2019 3:39 PM Loco Ozuna RN documented as of this encounter Mental Status * Does person have difficulty concentrating/remembering/making decisions? Answer Entry Date Author No 04/07/2019 3:39 PM Loco Ozuna RN documented in this encounter Miscellaneous Notes * Telephone Encounter - Latosha Vines - 12/04/2019 10:02 AM CDT Current Provider name: Dr. Garret Harkins Reason for call: Ms. Viviane Escalera received a call and she will come in 30 minutes early as requestedfor her appt today w/ Dr. Harkins Patient Call Back number: [phone] documented in this encounter Plan of Treatment Upcoming Encounters Date Type Department Care Team (Late st Contact Info) Description 10/22/2024 8:00 AM CDT Appointment [facility] PFT [address] [place] [address] 11/03/2024 3:00 PM CDT Office Visit [facility] - Pulmonology [address] [facility], [place] [address] Curtis Miramontes MD [address] [place] [address] OF [facility] [place] [address] documented as of this encounter Goals Goal Patient Goal Type Associated Problems Recent Progress Patient-Stated? 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 documented as of this encounter Care Teams Polishing Wheel Setter Relationship Specialty Start Date End Date Madonna Smith DO PCP - General 03/17/20 03/22/20 Rl Jones APRN-FOUNDATION ENGINEER PCP - General 03/30/20 04/27/21 Celestina Machado APRN-FOUNDATION ENGINEER [address] [place] [address] PCP - General 04/28/21 03/27/22 Kellie Edmonds APRN-FOUNDATION ENGINEER [address] [place] [address] PCP - General 03/28/22 08/08/23 Madonna Smith DO [address] OF [facility] [place] [address] PCP - General Internal Medicine 08/09/23 09/09/23 Vernell Olguin DO [address] [place] [address] PCP - General Internal Medicine 09/10/23 Madonna Smith DO [address] OF [facility] [place] [address] Physician Internal Medicine 09/10/23 documented as of this encounter
--- OUTSIDE RECORDS SUMMARY | 2024-09-19 08:48 | XMS_ITS | Encounter Summary ---
Author Organization [facility] Address [address] [place] [address] Care Team Providers Care Scarf Gluer Name Role Phone Hal Polanco MD Unavailable [phone] Melony Oro PA-C Primary Care Provider [phone] Collin Sood MD Unavailable [phone] Vee Mullen MD Unavailable [phone] Margarito Graff MD Unavailable Encounter Details Date Type Department Care Team (Late st Contact Info) Description 02/10/2019 Abstract [facility] at [address] [address] Jacinto Mcfarlane MA Social History Tobacco Use Types Packs/Day Years Used Date Smoking Tobacco: Former Cigarettes 1 35.3 1 983 - 06/2017 Smokeless Tobacco: Never Alcohol Use Standard Drinks/Week Comments No 0 (1 standard drink = 0.6 oz pur e alcohol) Comments No Sex and Gender Information Value Date Recorded Sex Assigned at Not on file Legal Sex Female 9:54 PM CDT Gender Identity Not on file Sexual Orientation Not on file Occupation Industry Job Start Date Job End Date Unemployed Not on file Not on file Not on file Not on file Not on file Not on file Not on file documented as of this encounter Plan of Treatment Not on file documented as of this encounter Procedures Procedure Name Priority Date/Time Associated Diagnosis Comments BASIC METABOLIC PANEL Routine 02/07/2019 documented in this encounter Results * BASIC METABOLIC PANEL (02/07/2019) SODIUM S/P/B 137 137 - 145 POTASSIUM S/P/B 3.8 3.4 - 5.0 CO2 25 22 - 30 CHLORIDE S/P/B 102 98 - 107 GLUCOSE 126 65 - 105 mg/dL CALCIUM S/P/B 9.3 8.4 - 10.2 BUN 20 7 - 17 CREATININE S/P/B 0.90 0.5 - 1.0 EGFR NON-AFR. AMER. >60 <=90 02/07/2019 us Doc [facility] Abstract LABORATORY Final Result documented in this encounter Visit Diagnoses Not on filedocumented in this encounter Care Teams Scarf Gluer Relationship Specialty Start Date End Date Melony Oro PA-C [address] [facility] [address] [place] [address] PCP - General 09/12/16 04/27/20 Hal Polanco MD Three [facility]. [address] [place] [address] Mingus Biztalk Developer CARDIOVASCULAR DISEASE 08/13/15 Collin Sood MD [address] [place] [address] GASTROENTEROLOGY 09/26/19 Vee Mullen MD [address] [facility] [address] [address] GASTROENTEROLOGY 10/05/19 Margarito Graff MD [address] [facility] [address] GASTROENTEROLOGY 01/31/20 Justo Snider [address] [place] [address] NEUROLOGY 12/31/17 documented as of this encounter
--- OUTSIDE RECORDS SUMMARY | 2024-09-19 08:48 | XMS_ITS | Encounter Summary ---
Author Organization [facility] Address [address] [place] [address] Care Team Providers Care Clinical Nursing Instructor Name Role Phone Hal Polanco MD Unavailable [phone] Melony Oro PA-C Primary Care Provider [phone] Collin Sood MD Unavailable [phone] Vee Mullen MD Unavailable [phone] Margarito Graff MD Unavailable Encounter Details Date Type Department Care Team (Late st Contact Info) Description 08/16/2017 Abstract [facility] Conversion , Generic Conversion, Social History Tobacco Use Types Packs/Day Years Used Date Smoking Tobacco: Former Smokeless Tobacco: Never Alcohol Use Standard Drinks/Week Comments No 0 (1 standard drink = 0.6 oz pur e alcohol) Comments Unknown Sex and Gender Information Value Date Recorded [...] on file documented as of this encounter Visit Diagnoses Not on filedocumented in this encounter Care Teams Clinical Nursing Instructor Relationship Specialty Start Date End Date Melony Oro PA-C [address] [facility] [address] [place] [address] PCP - General 09/12/16 04/27/20 Hal Polanco MD Three [facility]. [address] [place] [address] Bob White Coatings Inspector CARDIOVASCULAR DISEASE 08/13/15 Collin Sood MD [address] [facility] [address] [place] [address] GASTROENTEROLOGY 09/26/19 Vee Mullen MD [address] [facility] [address] [address] GASTROENTEROLOGY 10/05/19 Margarito Graff MD [address] [facility] [address] [place] [address] GASTROENTEROLOGY 01/31/20 Justo Snider [address] [place] [address] NEUROLOGY 12/31/17 documented as of this encounter
--- OUTSIDE RECORDS SUMMARY | 2024-09-19 08:48 | XMS_ITS | Encounter Summary ---
Author Organization [facility] Address [address] [place] [address] Care Team Providers Care Board Mixer Tender Name Role Phone Madonna Smith DO Primary Care Provider [phone] Rl Jones [facility] Primary Care Provide r Celestina Machado [facility] Primary Care Provider [phone] Kellie Edmonds USER [facility]PERI[facility] Primary Care Provider [phone] Madonna Smith DO Primary Care Provider [phone] Vernell Olguin DO Primary Care Provider [phone] Madonna Smith DO Unavailable [phone] Reason for Visit * Reason Comments Refill Request Encounter Details Date Type Department Care Team (Late st Contact Info) Description 08/19/2019 Refill [facility] 4 Transitional Care Unit [address] [place] [address] Kemi Rapp MD [address] [place] [address] Refill Request Social History Tobacco Use Types Packs/Day Years Used Date Smoking Tobacco: Former Cigarettes 1.5 20.9 1 999 - 01/12/2019 Smokeless Tobacco: Never Alcohol Use Standard Drinks/Week Comments Not Currently 0 (1 standard drink = 0.6 oz pur e alcohol) Comments No Sex and Gender Information Value Date Recorded Sex Assigned at Not on file Legal Sex Female 5:58 PM PEARL CUTTER Gender Identity Not on file Sexual Orientation [...] Loco Ozuna RN documented in this encounter Plan of Treatment Upcoming Encounters Date Type Department Care Team (Late st Contact Info) Description 10/22/2024 8:00 AM CDT Appointment [facility] PF [address] [place] [address] 11/03/2024 3:00 PM CDT Office Visit [facility] - Pulmonology [address] [facility], [place] [address] Curtis Miramontes MD [address] [place] [address] OF [facility] [place] [address] documented as of this encounter Goals Goal Patient Goal Type Associated Problems Recent Progress Patient-Stated? 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 09/23/2019 documented as of this encounter Care Teams Board Mixer Tender Relationship Specialty Start Date End Date Madonna Smith DO PCP - General 03/17/20 03/22/20 Rl Jones, USER EXPERIENCE RESEARCHER[employer] PCP - General 03/30/20 04/27/21 Celestina Machado, USER EXPERIENCE RES[employer]ARCH[employer] [address] [place] [address] PCP - General 04/28/21 03/27/22 Kellie Edmonds USER EXPERIENCE RESEARCHER[employer]ER [address] [place] [address] PCP - General 03/28/22 08/08/23 Madonna Smith DO [address] [facility] 2L DIV OF [facility] [place] [address] PCP - General Internal Medicine 08/09/23 09/09/23 Vernell Olguin DO [address] [place] [address] PCP - General Internal Medicine 09/10/23 Madonna Smith DO [address] [facility] 2L DIV OF GEN [place] [address] Physician Internal Medicine 09/10/23 documented as of this encounter
--- OUTSIDE RECORDS SUMMARY | 2024-09-19 08:48 | XMS_ITS | Clinical Summary ---
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 Patient tolerated ceftriaxone in the ED on 10/09/20- Errol PatinoD Medications insulin syringe-needle U-100 0.5 mL 29 gauge x 1/2 syringe 1 Syringe by Not Applicable route as needed 07/19/19 19 Active oxygen 2-3 L by Not Applicable route as directed Active polyethylene glycol (MIRALAX) 17 gram packet Take 17 g by mouth daily as needed Active acetylcysteine (MUCOMYST) 100 mg/mL (10 %) nebulizer solution Inhale 1,000 mg every 6 (six) hours as needed 06/25/19 21 Active albuterol HFA (Ventolin HFA) 90 mcg/actuation inhaler Inhale 2 puffs every 4 (four) hours as needed 01/08/20 18 Active amLODIPine (NORVASC) 10 mg tablet Take 1 tablet (10 mg total) by mouth daily 07/28/19 21 Active cyclobenzaprine (FLEXERIL) 10 mg tablet Take 10 mg by mouth daily as needed 01/06/20 20 Active fluticasone propionate (FLONASE) 50 mcg/actuation nasal spray Administer 2 sprays into affected nostril(s) daily 09/01/19 17 Active furosemide (LASIX) 20 mg tablet Take 1 tablet (20 mg total) by mouth 2 (two) times a day 07/18/19 19 Active gabapentin (NEURONTIN) 300 mg capsule Take 1 capsule (300 mg total) by mouth 2 (two) times a day as needed 09/16/19 21 Active guaiFENesin ER (MUCINEX) 600 mg 12 hr tablet Take 1 tablet (600 mg total) by mouth 2 (two) times a day as needed for cough 04/15/19 21 Active hydroCHLOROthiazid e (MICROZIDE) 12.5 mg capsule Take 1 capsule (12.5 mg total) by mouth daily 04/02/19 17 Active HYDROcodone-acetam inophen (NORCO) 10-325 mg per tablet Take 1 tablet by mouth 3 (three) times a day as needed 09/16/19 21 Active loratadine (CLARITIN) 10 mg tablet Take 1 tablet (10 mg total) by mouth daily 05/13/19 16 Active metoclopramide (REGLAN) 10 mg tablet Take 1 tablet (10 mg total) by mouth 2 (two) times a day 01/10/20 17 Active montelukast (SINGULAIR) 10 mg tablet Take 1 tablet (10 mg total) by mouth nightly 10/06/19 20 Active nicotine polacrilex (NICORETTE) 4 mg gum Chew 1 each 3 (three) times a day as needed 09/25/19 21 Active nitroglycerin (NITROSTAT) 0.[address] 1 tablet under the tongue every 5 (five) minutes as needed 07/30/19 20 Active ondansetron ODT (ZOFRAN-ODT) 4 mg disintegrating tablet Take 1 tablet by mouth every 8 (eight) hours as needed 05/30/[address] (PROTONIX) 40 mg EC tablet Take 1 tablet (40 mg total) by mouth 2 (two) times a day 09/25/19 20 Active SUMAtriptan (IMITREX) 50 mg tablet Take 6 mg by mouth 3 (three) times a day as needed 03/29/19 19 Active umeclidinium (INCRUSE ELLIPTA) 62.5 mcg/actuation blister with device Inhale 1 puff (62.5 mcg total) daily 05/16/19 20 Active benzonatate (TESSALON) 100 mg capsuleIndications :Cough Take 1 capsule (100 mg total) by mouth 3 (three) times a day as needed for cough 20 capsule 10/13/19 21 Active atorvastatin (LIPITOR) 80 mg tablet Take 1 tablet (80 mg total) by mouth nightly Active celecoxib (CeleBREX) 100 mg capsule Take 1 capsule (100 mg total) by mouth 2 (two) times a day as needed for pain 12/31/19 Active isosorbide mononitrate ER (IMDUR) 60 mg 24 hr tablet Take 1 tablet (60 mg total) by mouth nightly 11/26/19 Active SUMAtriptan (IMITREX) 6 mg/0.5 mL solution Inject 0.5 mL (6 mg total) under the skin as needed (Migraines) INJECT 0.5ML(6MG) UNDER THE SKIN AT ONSET OF HEADACHE. MAY REPEAT DOSE IN 2 HOURS ONCE DIRECTED. 01/06/20 Active lisinopriL (PRINIVIL,ZESTRIL) 40 mg tablet Take 1 tablet (40 mg total) by mouth daily 12/05/19 Active Dulera 200-5 mcg/actuation inhaler Inhale 2 puffs 2 (two) times a day 01/07/20 Active methocarbamoL (ROBAXIN) 500 mg tablet Take 1 tablet (500 mg total) by mouth 2 (two) times a day 10 tablet 09/06/19 Active lidocaine (LIDODERM) 5 % Place 1 patch on the skin daily for 12 hours Remove & discard patch within 12 hours or as directed by MD. 7 patch 09/06/19 Active ketorolac (TORADOL) 10 mg tablet Take 1 tablet (10 mg total) by mouth every 6 (six) hours as needed for pain 20 tablet 09/06/19 Active Additional Information Patient not taking.Reported on 09/17/2024 Active Problems Problem Noted Date Diagnosed Date ILD (interstitial lung disease) 01/24/2024 Shortness of breath 01/23/2024 Pulmonary fibrosis 01/23/2024 Elevated WBCs 01/23/2024 Chronic pain 01/23/2024 Hx of migraine headaches 01/23/2024 Community acquired pneumonia 10/09/2020 Assessment & Plan (10/09/2020 8:37 PM CDT): Per CTA chest of 10/09/2020: Bilateral multifocal ground-glass and interstitial opacities, which may be seen with atypical pneumonia such as COVID-19. COVID negative Asthma CHF (congestive heart failure) COPD exacerbation Coronary artery disease Hypertension Hypercholesteremia Acute on chronic respiratory failure with hypoxi a Resolved Problems Problem Noted Date Diagnosed Date Resolved Date Hypoxia 10/09/2020 10/12/2020 Encounters Date Type Department Care Team Description 09/17/2024 8:45 AM CDT Office Visit [facility] [address], [address] [place] [address] Michelet Orellana PA Chronic left-sided low back pain with left-sided sciatica; L4-L5 disc bulge 2024 Telephone [facility] [address], [address] [place] [id number] Deborah Srinivasan RN 09/05/2024 11:21 AM CDT - 09/05/2024 3:33 PM CDT Emergency [facility] [address] [place] [id number] Chronic left-sided low back pain with left-sided sciatica (Primary Dx); L4-L5 disc bulge Discharge Disposition: Discharge to home or self care 07/11/2024 12:16 PM CDT - 07/11/2024 11:59 PM CDT Hospital Encounter [facility] [address] [place] [address] Arthralgia of knee, right Discharge Disposition: Discharge to home or self care 07/11/2024 12:12 PM CDT - 07/11/2024 11:59 PM CDT Hospital Encounter [facility] [address] [place] [address] Bilateral chronic knee pain Discharge Disposition: Discharge to home or self care from Last 3 Months Surgical History Surgery Date Site/Laterality Comments COLON SURGERY 02/12/2018 - 02/11/2019 Exploratory laparotomy with colostomy for perforated bowel COLON SURGERY 02/12/2018 - 02/11/2019 Colostomy reversal HERNIA REPAIR 02/12/2019 - 02/12/2020 Triple hernia repair HYSTERECTOMY LUNG BIOPSY 02/12/2019 - 02/12/2020 SECTION x3 TONSILLECTOMY/ADENOIDECTOMY Medical History Medical History Date Comments Hypercholesteremia Asthma CHF (congestive heart failure) (HCC) COPD (chronic obstructive pulmonary disease) Coronary artery disease Hypertension Family History Medical History Relation Name Comments Cancer Father COPD Mother Cancer Mother Cancer Sister 1 Cancer Sister 2 Relation Name Status Comments Father (Age 49) Mother Breast and c ancer Sister 1 Alive Brain and lung cancer Sister 2 Alive Colorectal canc er Social History Tobacco Use Types Packs/Day Years Used Date Smoking Tobacco: Some Days Cigarettes Last attempted to quit: 2019 Smokeless Tobacco: Never Tobacco Cessation:Ready to Q uit: Not Asked; Counseling Given: Not Answered [facility] Utilities Answer Date Recorded In the past 12 months has th e electric, gas, oil, or water company threatened to shut off services in your home? No 01/24/2024 Social Connection and Isolat ion Panel [NHANES] Answer Date Recorded In a typical week, how many times do you talk on the phone with family, friends, or neighbors? More than three times a week 01/24/2024 How often do you get togethe r with friends or relatives? More than three times a week 01/24/2024 How often do you attend chur ch or bahai services? Never 01/24/2024 Do you belong to any clubs o r organizations such as advent groups, unions, fraternal or athletic groups, or school groups? No 01/24/2024 How often do you attend meet ings of the clubs or organizations you belong to? Never 01/24/2024 Are you , , di vorced, , never , or living with a partner? 01/24/2024 AUDIT-C Answer Date Recorded Q1: How often do you have a drink containing alcohol? Never 09/17/2024 Q2: How many drinks containi ng alcohol do you have on a typical day when you are drinking? Patient does not drink Q3: How often do you have si x or more drinks on one occasion? Never 09/17/2024 Overall Financial Resource Strain (CARDIA) Answe r Date Recorded How hard is it for you to pa y for the very basics like food, housing, medical care, and heating? Not very hard 01/24/2024 Hunger Vital Sign Answer Date Recorded Within the past 12 months, y ou worried that your food would run out before you got the money to buy more. Never true 01/24/20 24 Within the past 12 months, t he food you bought just didn't last and you didn't have money to get more. Never true 01/24/2024 PRAPARE - Transportation Answer Date Re corded In the past 12 months, has l ack of transportation kept you from medical appointments or from getting medications? No 01/12 In the past 12 months, has l ack of transportation kept you from meetings, work, or from getting things needed for daily living? No 01/24/2024 Housing Stability Vital Sign Answer Evan e Recorded In the last 12 months, was t here a time when you were not able to pay the mortgage or rent on time? No 01/24/2024 In the past 12 months, how m any times have you moved where you were living? 0 01/24/2024 At any time in the past 12 m [facility], were you homeless or living in a penitentiary (including now)? No 01/24/2024 Personal Safety Answer Date Recorded Have you ever been in or are you currently in a harmful physical or emotional relationship or is someone making you feel afraid or unsafe? 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 Gender Identity Not on file Sexual Orientation Not on file Occupation Industry Job Start Date Job End Date Disability Not on file Not on file Not on file Obstetrics History Last Filed Vital Signs Vital Sign Reading Time Taken Comments Blood Pressure 152/83 09/17/2024 8:26 AM CDT Pulse 68 09/17/2024 8:26 AM CDT Temperature 36.6 C (97.8 F) 09/05/2024 11:10 AM CDT Respiratory Rate 20 09/17/2024 8:26 AM CDT Oxygen Saturation 97% 09/17/2024 8:26 AM CDT 2L Inhaled Oxygen Concentration - - Weight 78.3 kg (172 lb 9.6 oz) 09/17/2024 8:26 A M CDT Height 160 cm (5' 3) 09/17/2024 8:26 AM CDT Body Mass Index 30.57 09/17/2024 8:26 AM CDT Plan of Treatment Health Maintenance Due Date Last Done Comments Colon Cancer Screening-Colonoscopy 1965 Depression Screening 1964 Hepatitis C Screening 1964 Hepatitis B Screening 1982 Regular Well Visit/Exam 18-64 1982 Zoster Vaccine (1 of 2) 2014 Covid-19 Vaccine (3 - 2023-2 5 season) 2023 05/31/2020, 05/10/2020 Influenza Vaccine (#1) 2024 , 01/11/2022, 12/09/2020, Additional history exists Breast Cancer Screening-Mammogram 01/08/2025 01/09/2024, 01/09/2024, 01/05/2021, Additional history exists DTaP/Tdap/Td Vaccine (2 - Td or Tdap) 07/26/2030 07/26/2020 Pneumococcal vaccine <65 Completed 01/11/2022, 0307/2017 Procedures Procedure Name Priority Date/Time Associated Diagnosis Comments CT LUMBAR SPINE WO CONTRAST ED 09/05/2024 12:53 PM CDT URINALYSIS AND REFLEX TO MICROSCOPIC AND CULTURE STAT 09/05/2024 11:46 AM CDT XR KNEE LEFT 4 OR MORE VIEWS Schedule Routine, Read Routine (OP Routine) 07/11/2024 12:33 PM CDT Bilateral chronic knee pain XR KNEE RIGHT 4 OR MORE VIEWS Schedule Routine, Read Routine (OP Routine) 07/11/2024 12:33 PM CDT Arthralgia of knee, right from Last 3 Months Results * CT Lumbar Spine WO Contrast (09/05/2024 12:53 PM CDT) Anatomical Region Laterality Modality Spine N/A Computed Tomogra phy 09/05/2024 1:44 PM CDT Narrative 09/05/2024 1:49 PM CDT EXAM DESCRIPTION: CT LUMBAR SPINE WO CONTRAST REASON FOR STUDY: Low back pain, increased fracture risk Pt reports LL back pain x approx 1 week NKI, denies painful upon urination but does endorse has been going more often than normal. TECHNIQUE: Axial images acquired through the lumbar spine without intravenous contrast. Reconstructed coronal and sagittal MPR images reviewed. All images stored on PACS. Automated exposure control was used as a dose optimization technique for this examination. COMPARISON: None available FINDINGS: SEGMENTATION: No transitional anatomy. The lowest well-developed disc space is labeled L5-S1. ALIGNMENT: Normal. VERTEBRAE: No fracture. Vertebral heights well-maintained. DISC HEIGHT: Mild diffuse degenerative change subtle endplate sclerosis and early spur formation. HARDWARE: None in the spine. INDIVIDUAL DISC LEVELS: No significant osseous canal stenosis. L4-5 level demonstrates a central and left paracentral disc bulge effacing the thecal sac mildly. Neural foramina are patent. Displacement of the traversing nerve root may be present. Please correlate clinically. Consider MR imaging or postmyelogram CT to better define. VISUALIZED RIBS: No fractures. SOFT TISSUES: Moderate-sized hiatal hernia. OTHER: No other significant finding. IMPRESSION: 1. No acute lumbar spine abnormality. 2. L4-5 central and left paracentral disc bulge effacing the thecal sac and possibly displacing the traversing nerve root. Please correlate clinically and consider MR imaging or postmyelogram CT to better define. THIS IS AN ELECTRONICALLY VERIFIED FINAL REPORT 09/05/2024 1:49 PM - Electronically signed by Marcelino Lopes M.D. RB: BLANE Report ID: [id number] Reading Location: [place] [address] Procedure Note Marcelino Lopes MD - 09/05/2024 EXAM DESCRIPTION: CT LUMBAR SPINE WO CONTRAST REASON FOR STUDY: Low back pain, increased fracture risk Pt reports LL back pain x approx 1 week NKI, denies painful upon urinationbut does endorse has been going more often than normal. TECHNIQUE: Axial images acquired through the lumbar spine withoutintravenous contrast. Reconstructed coronal and sagittal MPR images reviewed. Allimages stored on PACS. Automated exposure control was used as a dose optimization technique forthis examination. COMPARISON: None available FINDINGS: SEGMENTATION: No transitional anatomy. The lowestwell-developed disc space is labeled L5-S1. ALIGNMENT: Normal. VERTEBRAE: No fracture. Vertebral heights well-maintained. DISC HEIGHT: Mild diffuse degenerative change subtle endplate sclerosisand early spur formation. HARDWARE: None in the spine. INDIVIDUAL DISC LEVELS: No significant osseous canal stenosis. L4-5 level demonstrates a central and left paracentral disc bulge effacingthe thecal sac mildly. Neural foramina are patent. Displacement of the traversing nerve root may be present. Please correlate clinically.Consider MR imaging or postmyelogram CT to better define. VISUALIZED RIBS: No fractures. SOFT TISSUES: Moderate-sized hiatal hernia. OTHER: No other significant finding. IMPRESSION: 1. No acute lumbar spine abnormality. 2. L4-5 central and left paracentral disc bulge effacing the thecal sacand possibly displacing the traversing nerve root. Please correlate clinicallyand consider MR imaging or postmyelogram CT to better define. THIS IS AN ELECTRONICALLY VERIFIED FINAL REPORT 09/05/2024 1:49 PM - Electronically signed by Marcelino Lopes M.D. RB: BLANE Report ID: [id number] Reading Location: [place] [address] [address] PROCEDURES Final Result * Urinalysis reflex to microscopic and culture Urine (09/05/2024 11:46 AM CDT) Color, ur Yellow Yellow Comment:Testing performed by : [address] [address] Clarity, ur Clear Clear JACK Comment:Testing performed by : [address] [address] Specific gravity, ur 1.010 1.003 - 1.030 JACK Comment:Testing performed by : [address] [address] pH, urine 7.0 JACK Comment: Interpretive Data U rine pH is affected by diet, medications, systemic acid-base disturbances, and renal tubular function. pH may affect urinary stone formation. For example, urine pH below 6.0 may help reduce the tendency for calcium phosphate stones and pH greater than 6.0 may reduce the tendency for uric acid stone formation. Source: [employer] Current Interpretive Data was last revised on 2017 Testing performed by: [facility], [address] [place] [address], [place]., [address] Protein, ur ql Negative Negative JACK Comment:Testing performed by : [address], [place]., [address] Glucose, ur ql Negative Negative JACK Comment:Testing performed by : [address], [place]., [address] Ketones, ur Negative Negative JACK Comment:Testing performed by : [address], [place]., [address] Bilirubin, ur Negative Negative JACK Comment:Testing performed by : [address], [place]., [address] Blood, ur Negative Negative JACK Comment:Testing performed by : [address], [place]., [address] Urobilinogen, ur <2.0 <2.0 mg/dL JACK Comment:Testing performed by : [address], [place]., [address] Nitrite, ur Negative Negative JACK Comment:Testing performed by : [address], [place]., [address] Leukocyte esterase, ur Negative Negative JACK Comment:Testing performed by : [address], [place]., [address] UA reflex comment Reflex conditions for microscopic UA and culture not met. JACK Comment:Testing performed by : [address] [address] Urine 09/05/2024 11:4 6 AM CDT 09/05/2024 11:49 AM CDT us [facility] MICROBIOLOGY - GENERAL MANFRED MORRIS Final Result JACK JONES [address] [facility] [place] [address] * XR Knee Left 4 or More Views (07/11/2024 12:33 PM CDT) Anatomical Region Laterality Modality Lower Extremities, Knee Left Computed Radiography 07/11/2024 10:1 9 PM CDT Narrative 07/11/2024 10:21 PM CDT EXAM DESCRIPTION: XR KNEE LEFT 4 OR MORE VIEWS; XR KNEE RIGHT 4 OR MORE VIEWS REASON FOR STUDY: pain Bilateral knee pain x 1 year. Worsening x 1 month. Nki ; FINDINGS: Four views each knee submitted without comparison. No acute fracture. Alignment is normal. The joint spaces are normal. There are no effusions. IMPRESSION: Normal bilateral knee evaluation. THIS IS AN ELECTRONICALLY VERIFIED FINAL REPORT 07/11/2024 10:21 PM - Electronically signed by Moises Randle M.D. MF: [email or web address] Report ID: [id number] Reading Location: [id number] Procedure Note Moises Randle MD - 07/11/2024 EXAM DESCRIPTION: XR KNEE LEFT 4 OR MORE VIEWS; XR KNEE RIGHT 4 OR MORE VIEWS REASON FOR STUDY: pain Bilateral knee pain x 1 year. Worsening x 1 month. Nki ; FINDINGS: Four views each knee submitted without comparison. No acute fracture. Alignment is normal. The joint spaces are normal.There are no effusions. IMPRESSION: Normal bilateral knee evaluation. THIS IS AN ELECTRONICALLY VERIFIED FINAL REPORT 07/11/2024 10:21 PM - Electronically signed by Moises Randle M.D. MF: [email or web address] Report ID: [id number] Reading Location: [id number] Leslie Rodriguez MD IMG XR PROCEDURES Final R esult * XR Knee Right 4 or More Views (07/11/2024 12:33 PM CDT) Anatomical Region Laterality Modality Lower Extremities, Knee Right Computed Radiography 07/11/2024 10:1 9 PM CDT Narrative 07/11/2024 10:21 PM CDT EXAM DESCRIPTION: XR KNEE LEFT 4 OR MORE VIEWS; XR KNEE RIGHT 4 OR MORE VIEWS REASON FOR STUDY: pain Bilateral knee pain x 1 year. Worsening x 1 month. Nki ; FINDINGS: Four views each knee submitted without comparison. No acute fracture. Alignment is normal. The joint spaces are normal. There are no effusions. IMPRESSION: Normal bilateral knee evaluation. THIS IS AN ELECTRONICALLY VERIFIED FINAL REPORT 07/11/2024 10:21 PM - Electronically signed by Moises Randle M.D. MF: [email or web address] Report ID: [id number] Reading Location: [id number] Procedure Note Moises Randle MD - 07/11/2024 EXAM DESCRIPTION: XR KNEE LEFT 4 OR MORE VIEWS; XR KNEE RIGHT 4 OR MORE VIEWS REASON FOR STUDY: pain Bilateral knee pain x 1 year. Worsening x 1 month. Nki ; FINDINGS: Four views each knee submitted without comparison. No acute fracture. Alignment is normal. The joint spaces are normal.There are no effusions. IMPRESSION: Normal bilateral knee evaluation. THIS IS AN ELECTRONICALLY VERIFIED FINAL REPORT 07/11/2024 10:21 PM - Electronically signed by Moises Randle M.D. MF: [email or web address] Report ID: [id number] Reading Location: [id number] Leslie Rodriguez MD IMG XR PROCEDURES Final R esult from Last 3 Months Insurance [facility] Member Subscriber Plan / Payer (Ef fective 2020-Present) Name:Viviane Escalera Relation to Subscriber:Self Name:Viviane Escalera Payer ID:[id number] (NAIC) Group ID:Not on file Type:MEDICAID RISK OTHER Address: ATTN: CLAIMS DEPT [address] 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
--- OUTSIDE RECORDS SUMMARY | 2024-09-19 08:48 | XMS_ITS | Clinical Summary ---
Author Organization [facility] Address [address] [place] [address] Care Team Providers Care Sumo Wrestler Name Role Phone Vernell Olguin DO Primary Care Provider [phone] Sarah Madonna DO Unavailable [phone] [facility],non-owned Affiliates and Associated Physician Practices is amultiple site organization consisting of ambulatory clinics and hospital sitesin [place], [place], [place] and [place]. This disclosure is being madepursuant to the Care Everywhere program and may not contain all information available regarding this patient. Last updated 17.[facility] Allergies Active Allergy Reactions Criticality Noted Date Comments Piperacillin Sod-Tazobactam So Rash,Itching Medium 04/14/2019 Suspected allergy to Zosyn, systemic raised wheals with itching and redness. Medications * Be aware that medications may not be up to date on this document. Alwaysverify current medications with the patient. Oxygen Use 2-3 L as directed Active polyethylene glycol 3350 (MIRALAX) packet Take 17 g by mouth once daily as needed for Constipation 14 packet 1 0 Active Additional Information Patient taking differently:17 g Oral DAILY PRN, Constipation,As needed., Reported on 08/04/2024 nitroGLYCERIN (NITROSTAT) 0.4 MG tablet Dissolve 1 (one) tablet under the tongue every 24 hours as needed As needed. 0 Active potassium chloride ER (KLOR-CON) 10 MEQ tablet Take 1 (one) tablet by mouth every 2 days 0 Active guaiFENesin ER 12hr (MUCINEX) 600 MG tabletIndication s:Chronic obstructive pulmonary disease, unspecified COPD type (HCC) Take 1 (one) tablet by mouth every 12 hours 60 tablet 1 1 Active Q-Uhkzon-A-Cyste ine (NAC) 600 MG capsule Take 1 (one) tablet by mouth 2 times daily 60 capsule 11 1 Active NARCAN 4 MG/0.1ML nasal spray 1 Active loratadine (CLARITIN) 10 MG tablet Take 1 (one) tablet by mouth once daily 90 tablet 4 1 Active sodium chloride (OCEAN; BABY AYR) 0.65 % nasal spray [place] 2 (two) sprays into each nostril as needed (Sinus/nasal congestion) 88 mL 3 2 Active albuterol (PROVENTIL;BRUCE LINDSAY) (2.5 MG/3ML) 0.083% nebulizer solution Inhale 2.5 (two and one-half) mg by mouth every 6 hours as needed for Shortness of Breath or Wheezing 9 mL 2 2 Active ibuprofen (MOTRIN) 600 MG tablet 1 Active lidocaine (LIDODERM) 5 % patch Apply 1 (one) patch to skin once daily 1 patch 1 2 Active tiZANidine (ZANAFLEX) 4 MG tablet 2 Active Ventolin HFA 108 (90 Base) MCG/ACT inhaler Inhale 2 (two) puffs by mouth every 4 hours as needed for Shortness of Breath or Wheezing 18 g 11 3 Active cyclobenzaprine (Flexeril) 10 MG tablet TAKE 1 TABLET BY MOUTH EVERY 24 HOURS NEEDED 30 tablet 3 Active amLODIPine (Norvasc) 10 MG tablet Take 1 (one) tablet by mouth once daily 90 tablet 4 3 Active famotidine (Pepcid) 20 MG tabletIndication s:Gastroesophage al reflux disease, unspecified whether esophagitis present Take 1 (one) tablet by mouth once daily 90 tablet 3 3 Active gabapentin (Neurontin) 300 MG capsule Take 1 (one) capsule by mouth 3 times daily 90 capsule 2 3 Active Lidocaine 4 % 1 Application by Apply externally route 2 times daily Apply dime size BID PRN 30 g 5 3 Active HYDROcodone-acet aminophen ([place]) 7.5-325 MG tablet Take 1 (one) tablet by mouth 4 times daily as needed 3 Active SUMAtriptan (Imitrex) 50 MG tabletIndication s:Migraine without aura and without status migrainosus, not intractable,Wet Pour Supervisor holden migraine without aura without status migrainosus, not intractable,Wet Pour Supervisor holden daily headache TAKE 1 TABLET BY MOUTH EVERY DAY NEEDED FOR MIGRAINE. MAY TAKE AN ADDITIONAL DOSE IF NOT RELIEVED IN 2 HOURS. NOT TO EXCEED 2 PILLS IN 24 HOURS 9 tablet 2 3 Active aspirin EC (Ecotrin) 81 MG tablet Take 1 (one) tablet by mouth once daily 3 Active isosorbide mononitrate CR 24hr (Imdur) 60 MG tablet Take 1 (one) tablet by mouth once daily 90 tablet 3 3 Active topiramate (Topamax) 25 MG tabletIndication s:Migraine without aura and without status migrainosus, not intractable,Wet Pour Supervisor holden migraine without aura without status migrainosus, not intractable,Wet Pour Supervisor holden daily headache TAKE 2 TABLETS BY MOUTH AT BEDTIME 60 tablet 1 3 Active carvedilol (Coreg) 12.5 MG tablet Take 1 (one) tablet by mouth 2 times daily with morning and evening meal 180 tablet 3 4 Active hydrOXYzine HCl (Atarax) 25 MG tabletIndication s:JASMINA (generalized anxiety disorder) Take 1 (one) tablet by mouth 4 times daily as needed for Itching 90 tablet 2 4 Active clindamycin (Cleocin) 1 % lotionIndication s:Hidradenitis suppurativa Apply to affected areas 1-2 times daily. 30 day supply. 60 mL 6 4 Active umeclidinium (Incruse Ellipta) 62.5 MCG/ACT inhaler Inhale 1 (one) puff by mouth once daily 3 Each 4 4 Active mometasone-formo terol (Dulera) 200-5 MCG/ACT inhaler Inhale 2 (two) puffs by mouth 2 times daily 13 g 11 4 Active nicotine (Nicoderm CQ) 7 MG/24HR patchIndications :Tobacco use disorder Apply 1 (one) patch to skin once daily 30 patch 6 4 Active nicotine polacrilex (Nicorette) 4 MG gumIndications:N icotine Dependence Take 1 (one) Each by mouth as needed for Smoking Cessation Reasons: Nicotine Addiction 30 Each 1 4 Active ondansetron (Zofran) 4 MG tablet Take 1 (one) tablet by mouth every 6 hours as needed for Nausea/Vomiting 30 tablet 2 4 Active pantoprazole EC (Protonix) 40 MG tablet Take 1 (one) tablet by mouth 2 times daily 90 tablet 3 4 Active vitamin D3 (Cholecalciferol ) 25 MCG (1000 UNITS) tabletIndication s:Vitamin D deficiency Take 1 (one) tablet by mouth once daily for 90 days 30 tablet 2 4 Active montelukast (Singulair) 10 MG tabletIndication s:Chronic obstructive pulmonary disease, unspecified COPD type (HCC) Take 1 (one) tablet by mouth once daily 90 tablet 5 4 Active escitalopram (Lexapro) 5 MG tabletIndication s:JASMINA (generalized anxiety disorder) Take 1 (one) tablet by mouth once daily 30 tablet 4 Active lisinopril (Prinivil; Zestril) 40 MG tabletIndication s:Essential hypertension TAKE 1 TABLET BY MOUTH DAILY 90 tablet 1 4 Active atorvastatin (Lipitor) 80 MG tablet TAKE 1 TABLET BY MOUTH AT BEDTIME FOR HIGH AMOUNT OF FATS IN THE BLOOD 90 tablet 3 4 Active fluticasone propionate (Flonase) 50 MCG/ACT nasal spray [place] 2 (two) sprays into each nostril once daily 16 g 3 4 Active celecoxib (CeleBREX) 100 MG capsule Take 1 (one) capsule by mouth 2 times daily 5 Active furosemide (Lasix) 20 MG tablet TAKE 1 TABLET BY MOUTH DAILY 90 tablet 5 Active predniSONE (Deltasone) 10 MG tablet Take 3 (three) tablets by mouth once daily for 28 days, THEN 2 (two) tablets once daily for 28 days, THEN 1 (one) tablet once daily for 56 days. 196 tablet 5 025 Active sulfamethoxazole -trimethoprim (Bactrim DS; Septra DS) 800-160 MG tablet Take 1 (one) tablet by mouth every Sunday, Sunday & Sunday 12 tablet 5 Active Active Problems Patient Care Coordination No te Formatting of this note migh t be different from the original. Dr. Rodriguez's office was contacted and informed that Ms. Escalera was discharged with instructions to resume her previous pain regimen and that no additional narcotics were prescribed on discharge. Ms. Escalera will be prescribed an additional month of medication from Dr. Rodriguez's office to bridge her to follow-up. Raffy Em MD 12/18/2017 3:30 PM Problem Noted Date Diagnosed Date Numbness and tingling of both legs 09/07/2023 Myalgia 09/07/2023 Chronic low back pain without sciatica PND (paroxysmal nocturnal dyspnea) 09/07/2023 SOB (shortness of breath) on exertion 09/07/2023 Palpitations 09/07/2023 Nasal congestion 09/07/2023 Inadequate sleep hygiene 09/07/2023 Chronic insomnia 09/07/2023 Chronic fatigue 09/07/2023 Severe persistent asthma with acute exacerbation 01/24/2023 Coronary artery disease involving la posta coronar y artery 01/08/2023 Overview (01/08/2023): CTA 12/25/2022 Impression: 1. Total calcium score 9.5 This is at the 76th percentile for individuals of the same age, gender and ethnicity from population studies. 2. Coronaries: Normal origin and morphology of the coronary arteries. Minimal atherosclerotic disease with no significant luminal stenosis. Essential hypertension 05/01/2021 Assessment & Plan (06/19/2023 10:01 AM CDT): BP 150/80 on arrival and after waiting about 15 minutes. She reports it has been running higher than goal at home. Will increase lisinopril to 20 mg daily. Labs done today and show stable K level and improved creatinine. Hyperlipidemia 05/01/2021 Paroxysmal atrial fibrillation 05/01/2021 Gastroesophageal reflux disease 05/01/2021 Prediabetes 05/01/2021 Chronic pain syndrome 05/01/2021 Restrictive lung disease 03/19/2019 Chronic hypoxemic respiratory failure 01/22/2019 Interstitial lung disease 10/08/2018 Atypical chest pain 12/06/2017 Chronic obstructive pulmonary disease 03/01/2017 Migraine without status migrainosus, not intract able 07/10/2015 Resolved Problems Problem Noted Date Diagnosed Date Resolved Date Full dentures 09/07/2023 12/05/2023 Nausea 09/07/2023 12/05/2023 Nocturnal sleep-related eating disorder 09/07/2023 12/05/2023 Sleep talking 09/07/2023 12/05/2023 Night sweats 09/07/2023 12/05/2023 Orthopnea 09/07/2023 12/05/2023 Overweight (BMI 25.0-29.9) 09/07/2023 1 Nocturia more than twice per night 09/07/2023 12/05/2023 Snoring 09/07/2023 12/05/2023 Bilious vomiting with nausea 07/30/2023 12/05/2023 Sebaceous cyst 07/10/2023 12/05/2023 Superior mesenteric artery stenosis 08/11/2021 12/05/2023 Hypokalemia 05/01/2021 12/05/2023 Chronic heart failure 05/01/20212023 Mild aortic regurgitation 05/01/2021 Chronic intractable headache 05/01/2021 12/05/2023 Supplemental oxygen dependent 04/07/2019 12/05/2023 Diverticulitis 11/20/2018 12/05/2023 Allergic rhinitis 07/07/2015 12/05/2023 Encounters Date Type Department Care Team Description 09/15/2024 Orders Only [facility] - Pulmonology [address] [place] [address] [phone] Curtis Miramontes MD ILD (interstitial lung disease) (HCC) ; Chronic hypoxemic respiratory failure (HCC) 08/21/2024 Results Follow-Up [facility] - Pulmonology [address] [place] [address] [phone] Mic Solano MD 08/13/2024 2:11 PM CDT - 08/13/2024 11:59 PM CDT Hospital Encounter [facility] OP DRAW STATION [address] [place] [address] Curtis Miramontes MD Discharge Disposition: Home or Self Care 08/13/2024 2:10 PM CDT Hospital Encounter [facility] CAT SCAN [address] [place] [address] Curtis Miramontes MD Discharge Disposition: Home or Self Care 08/13/2024 Travel 08/04/2024 3:30 PM CDT Office Visit [facility] - Pulmonology [address] [facility] [place] [address] Curtis Miramontes MD Interstitial lung disease (HCC) (Primary Dx); Chronic hypoxemic respiratory failure (HCC); Restrictive lung disease; Dyspnea on exertion 08/04/2024 Travel 07/31/2024 1:58 PM CDT - 07/31/2024 11:59 PM CDT Hospital Encounter [facility] ECHO [address] [place] [address] Mic Solano MD Discharge Disposition: Home or Self Care 07/31/2024 Travel 07/28/2024 8:05 AM CDT - 07/28/2024 11:59 PM CDT Hospital Encounter [facility] OP DRAW STATION [address] [place] [address] Discharge Disposition: Home or Self Care 07/28/2024 Travel from Last 3 Months Immunizations Immunization Administration Dates Next Due INFLUENZA VACCINE 12/14/2016,12/09/2010 INFLUENZA VACCINE, CELL CULT URE, QUADR. (FLUCELVAX QUADRIVALENT; 6MO+), 0.5 ML (CCIIV4) 11/17/2018 INFLUENZA VACCINE, QUADR. (F LUZONE; FLULAVAL; FLUARIX; AFLURIA QUADRIVALENT; 6MO+), 0.5 ML (IIV4) 12/11/2017 INFLUENZA VACCINE, TRIV. (FL UZONE; FLULAVAL; FLUARIX; AFLURIA TRIVALENT; 6MO+), 0.5 ML (IIV3) 12/12/2023 PNEUMOCOCCAL PCV20 CONJ VAC IM 01/11/2022 PNEUMOCOCCAL PPSV23 04/17/2017 TDAP (7yrs+) 07/26/2020 iNFLUENZA VACCINE, RECOM-MONTENEGRO, QUADR. (FLUBLOCK QUADRIVALENT; 18Y+) (RIV4) 01/11/2022,12/09/2020 Family History Medical History Relation Name Comments Brain Tumor Father 49 Cancer - Bladder Father 49 Asthma Grandchild Asthma Mother 60s Cancer - Breast Mother 60s Cancer - Uterine Mother 60s Lung Disease Mother 60s Thyroid Disease Mother 60s Cancer - Lung Other niece Cancer Sister 1 brain Cancer - Breast Sister 1 Cancer - Colon Sister 1 Cancer - Lung Sister 1 Cancer - Colon Sister 2 Cancer - Rectal Sister 2 None Known Sister 3 Relation Name Status Comments Father 49 Grandchild Maternal Grandfather Maternal Grandmother Mother 60s Other niece Alive Paternal Grandfather Paternal Grandmother Sister 1 Sister 2 Alive Sister 3 Alive Son 1 Alive Son 2 Alive Social History Tobacco Use Types Packs/Day Years Used Date Smoking Tobacco: Every Day Cigarettes 1.5 37 Started: 1984; Last attempted to quit: 2021 Smokeless Tobacco: Never Tobacco Cessation:Ready to Q uit: Not Asked; Counseling Given: Not Answered Alcohol Use Standard Drinks/Week Comments Not Currently 0 (1 standard drink = 0.6 oz pure alcohol) 1-2 can a year, former heavier drinker AUDIT-C Answer Date Recorded Q1: How often do you have a drink containing alcohol? Never 03/03/2024 Q2: How many drinks containi ng alcohol do you have on a typical day when you are drinking? Patient does not drink Q3: How often do you have si x or more drinks on one occasion? Never 03/03/2024 PHQ-2 Answer Date Recorded Patient Health Questionnaire-2 Score 0 12/05/2023 Education Answer Date Recorded What is the highest level of school you have completed or the highest degree you have received? Some college, no degree 09/05/2023 Comments No Sex and Gender Information Value Date Recorded Sex Assigned at Not on file Legal Sex Female 5:58 PM COMPUTER SPECIALIST Gender Identity Not on file Sexual Orientation Not on file Last Filed Vital Signs Vital Sign Reading Time Taken Comments Blood Pressure 161/91 08/04/2024 2:53 PM CDT Pulse 76 08/04/2024 2:53 PM CDT Temperature 37.2 C (98.9 F) 04/30/2024 3:03 PM CDT Respiratory Rate 17 08/04/2024 2:53 PM CDT Oxygen Saturation 96% 08/04/2024 2:53 PM CDT Inhaled Oxygen Concentration 40% 04/18/2019 6 :32 AM COMPUTER SPECIALIST Weight 78.5 kg (173 lb) 08/04/2024 2:53 PM CDT Height 160 cm (5' 3) 08/04/2024 2:53 PM CDT Body Mass Index 30.65 08/04/2024 2:53 PM CDT Plan of Treatment Upcoming Encounters Date Type Department Care Team (Late st Contact Info) Description 10/22/2024 8:00 AM CDT Appointment [facility] PFT [address] [place] [phone] 11/03/2024 3:00 PM CDT Office Visit [facility] - Pulmonology [address] [place] [address], [place] [address] Curtis Miramontes MD [address] [place] [address] [address] [facility] [place] [address] Health Maintenance Due Date Last Done Comments COLOGUARD (AGES 45-75) - COLON CA SCREENING 1965 CT COLONOGRAPHY - COLON CA SCREENING 1965 FIT - COLON CA SCREENING 1965 FLEX SIG - COLON CA SCREENING 1965 ZOSTER VACCINE (1 of 2) 2014 COVID-19 VACCINE ( season) 2023 05/31/2020, 05/10/2020 DEPRESSION SCREENING 02/13/2024 03/19/2023, 06/14/2022, 07/12/2021 Respiratory Syncytial Virus (RSV) Vaccine Pt: or over 60 yrs (1 - Risk 60-74 years 1-dose series) 2024 INFLUENZA VACCINE (#1) 2024 , 01/11/2022, 12/09/2020, Additional history exists LUNG CANCER SCREENING 11/12/2024 01/30/2022, 021 Postponed from 01/30/2023 (PCP Directed) PAP with HPV 12/09/2025 12/09/2020 MAMMOGRAM 01/08/2026 01/09/2024, 12/14, 01/05/2021, Additional history exists SCREENING FOR DIABETES 07/29/2027 , 07/30/2023, 06/19/2023, Additional history exists COLON MONITORING 05/02/2028 05/02/2018, 05/02/2018 COLONOSCOPY - COLON CA SCREENING 05/02/2028 05/02/2018, 05/02/2018 Colorectal Cancer Screening 05/02/2028 DTAP/TDAP/TD VACCINES (2 - Td or Tdap) 07/26/2030 07/26/2020 HIV SCREENING Completed 12/06/2017 HEPATITIS C SCREENING Completed 03/15/2020 , 09/10/2019, 12/06/2017 PNEUMOCOCCAL VACCINE 50+ Completed 01/11/2022, 07/2017 HEPATITIS B VACCINE Aged Out No longe r eligible based on patient's age to complete this topic HIB VACCINE Aged Out No longer eligi ble based on patient's age to complete this topic HPV VACCINE Aged Out No longer eligi ble based on patient's age to complete this topic MENINGOCOCCAL (Group B) VACCINE SHARED DECISION-MAKING Aged Out No longer eligible based on patient's age to complete this topic MENINGOCOCCAL GROUPS A/C/Y/W VACCINE Aged Out No longer eligible based on patient's age to complete this topic Goals Goal Patient Goal Type Associated Problems Recent Progress Patient-Stated? Author Medication Management General On track( 021 8:29 AM COMPUTER SPECIALIST) Altagracia Sanderson, RN Note: Expected end date: ongoing Interventions: Take all medications as prescribed Let your doctor know right away about any changes in your medications Make sure to request a refill of your medication at least one week prior to your last dose Medical Devices Implanted Type Area Research And Development Director Device Identifier Shelf Expiration Date Model / Serial / Lot Mesh Srg Ventralight St Sepra Echo Implanted:Qty: 1 on 04/07/2019 by Chris Hughes MD at [facility] N/A: Abdomen [employer] 10/09/2020 [id number] / / [id number] Procedures Procedure Name Priority Date/Time Associated Diagnosis Comments SS-B (SJOGREN'S) ANTIBODY Routine 08/13/2024 2:32 PM CDT Interstitial lung disease (HCC) SS-A (SJOGREN'S) 52+60 ANTIBODIES Routine 08/13/2024 2:32 PM CDT Interstitial lung disease (HCC) SCLERODERMA 70 (SCL) ANTIBODY Routine 08/13/2024 2:32 PM CDT Interstitial lung disease (HCC) ANCA VASCULITIS PANEL Routine 08/13/2024 2:32 PM CDT Interstitial lung disease (HCC) CYCLIC CITRULLINATED PEPTIDE(CCP) AB IGG Routine 08/13/2024 2:32 PM CDT Interstitial lung disease (HCC) RHEUMATOID FACTOR BLOOD QUANTITATIVE Routine 08/13/2024 2:32 PM CDT Interstitial lung disease (HCC) ANGEL BLOOD SCREEN W/REFLEX TITER Routine 08/13/2024 2:32 PM CDT Interstitial lung disease (HCC) PNEUMONITIS HYPERSENSITIVE PANEL Routine 08/13/2024 2:32 PM CDT Interstitial lung disease (HCC) CT CHEST WO CONT AND HIRES Routine 08/13/2024 2:21 PM CDT Interstitial lung disease (HCC) ECHO COMPLETE Routine 07/31/2024 2:56 PM CDT SOB (shortness of breath) on exertion Chronic hypoxemic respiratory failure (HCC) [facility] MISCELLANEOUS TEST Routine 07/28/2024 8:51 AM CDT Interstitial lung disease (HCC) COMPREHENSIVE METABOLIC PANEL Routine 07/28/2024 8:51 AM CDT Interstitial lung disease (HCC) CBC W AUTO DIFFERENTIAL Routine 07/29/19 8:51 AM CDT Interstitial lung disease (HCC) THIOPURINE METHYLTRANSFERASE Routine 07/28/2024 8:51 AM CDT Interstitial lung disease (HCC) B-TYPE NATRIURETIC PEPTIDE Routine 07/28/2024 8:51 AM CDT SOB (shortness of breath) on exertion Chronic hypoxemic respiratory failure (HCC) MAMMO BILAT SCREENING W WANG Routine 01/09/2024 9:53 AM COMPUTER SPECIALIST Encounter for screening mammogram for breast cancer CT LUNG SCREEN LOW DOSE Routine 01/31/20 12:47 PM COMPUTER SPECIALIST Former smoker HPV DETECTION HIGH RISK ADRIANNA Routine 12/09/2020 10:42 AM CDT Well woman exam with routine gynecological exam HEPATITIS C ANTIBODY Routine 03/15/2020 11:17 AM COMPUTER SPECIALIST Need for hepatitis C screening test ENDOSCOPY, COLON, DIAGNOSTIC Routine 05/02/2018 2:52 PM CDT HIV-1 HIV-2 ANTIGEN/ANTIBODY STAT 12/06/2017 10:00 PM CDT from Last 3 Months or Most Recently Relevant to Health Maintenance Results * SS-A (SJOGREN'S) 52+60 ANTIBODIES (08/13/2024 2:32 PM CDT) SS-A 52 Antibody 1 0 - 40 AU/mL 08/14/2024 11:30 PM CDT [facility] [employer] ([facility]) Comment: INTERPRETIVE INFORMATION: SSA-52 (Ro52) (SHANIKA) Antibody, IgG 29 AU/mL or Less ............. Negative 30 - 40 AU/mL ................ Equivocal 41 AU/mL or Greater .......... Positive SSA-52 (Ro52) and/or SSA-60 (Ro60) antibodies are associated with a diagnosis of Sjogren syndrome, systemic lupus erythematosus (SLE), and systemic sclerosis. SSA-52 antibody overlaps significantly with the major SSc-related antibodies. SSA-52 (Ro52) antibody occurs frequently in patients with inflammatory myopathies, often in the presence of interstitial lung disease. SS-A 60 Antibody 1 0 - 40 AU/mL 08/14/2024 11:30 PM CDT [employer] ([facility]) Comment: REFERENCE INTERVAL: SSA-60 (Ro60) (SHANIKA) Antibody, IgG 29 AU/mL or Less ............. Negative 30 - 40 AU/mL ................ Equivocal 41 AU/mL or Greater .......... Positive Performed By: [facility] [address] [place] [address] Carpenter Assembler: Gamaliel Rob MD, PhD CLIA Number: [id number] Blood BLOOD SPECIMEN / Unknown Lab Venipuncture / Unknown 08/13/2024 2:32 PM CDT 08/13/2024 2:58 PM CDT Curtis Rodriguez MD LAB - CHEMISTRY ORDERAB LES Final Result [facility]) [address] * ANCA VASCULITIS PANEL (08/13/2024 2:32 PM CDT) Myeloperoxidase Antibody 0 0 - 19 AU/mL 08/16/2024 7:22 AM CDT [employer] ([facility]) Comment: INTERPRETIVE INFORMATION: Myeloperoxidase Abs, IgG 19 AU/mL or Less ......... Negative 20-25 AU/mL .............. Equivocal 26 AU/mL or Greater ...... Positive Approximately 90% of patients with a P-ANCA pattern by IFA have antibodies specific for MPO. Serine Proteinase 3 IgG 1 0 - 19 AU/mL 08/16/2024 7:22 AM CDT [facility] ([facility]) Comment: INTERPRETIVE INFORMATION: Serine Proteinase 3, IgG 19 AU/mL or Less ........ Negative 20-25 AU/mL ............. Equivocal 26 AU/mL or Greater ..... Positive Approximately 85% of patients with a C-ANCA pattern by IFA have antibodies specific for PR3. ANCA Titer IFA <1:20 <1:20 08/16/2024 7:22 AM CDT [facility] ([facility]) ANCA Pattern IFA None Detected None Detected 08/16/2024 7:22 AM CDT [facility] ([facility]) Comment: INTERPRETIVE INFORMATION: ANCA IFA Pattern Neutrophil Cytoplasmic Antibodies (C-ANCA = granular cytoplasmic staining, P-ANCA = perinuclear staining) are found in the serum of over 90 percent of patients with certain necrotizing systemic vasculitides, and usually in less than 5 percent of patients with collagen vascular disease or arthritis. Performed By: [facility] [address] [place] [address] Carpenter Assembler: Gamaliel Rob MD, PhD CLIA Number: [id number] Blood BLOOD SPECIMEN / Unknown Lab Venipuncture / Unknown 08/13/2024 2:32 PM CDT 08/13/2024 2:58 PM CDT Curtis Rodriguez MD LAB - CHEMISTRY ORDERAB LES Final Result [facility] [employer] [facility]) [address] [place] [address], [facility] * PNEUMONITIS HYPERSENSITIVE PANEL (08/13/2024 2:32 PM CDT) Allergen Feather Mix Negative Negative kU/L 08/19/2024 11:52 AM CDT [facility] ([facility]) Aspergillus fumigatus 1 None Detected None Detected 08/19/2024 11:52 AM CDT [facility] ([facility]) Aspergillus fumigatus 6 None Detected None Detected 08/19/2024 11:52 AM CDT [facility] ([facility]) Aureobasidium Pullulans None Detected None Detected 08/19/2024 11:52 AM CDT [facility] ([facility]) [place] Serum None Detected None Detected 08/19/2024 11:52 AM CDT [facility] ([facility]) Micropolyspora faeni None Detected None Detected 08/19/2024 11:52 AM CDT [facility] ([facility]) Aspergillus flavus None Detected None Detected 08/19/2024 11:52 AM CDT [facility] ([facility]) Aspergillus fumigatus 2 None Detected None Detected 08/19/2024 11:52 AM CDT [facility] ([facility]) Aspergillus fumigatus 3 None Detected None Detected 08/19/2024 11:52 AM CDT [facility] ([facility]) Saccharomonospora viridis None Detected None Detected 08/19/2024 11:52 AM CDT [facility] ([facility]) Thermoactinomyces candidus None Detected None Detected 08/19/2024 11:52 AM CDT [facility] ([facility]) Comment: Testing includes antibodies directed at Aureobasidium pullulans, Aspergillus flavus, Aspergillus fumigatus #1, Aspergillus fumigatus #2, Aspergillus fumigatus #3, Aspergillus fumigatus #6, Micropolyspora faeni, [place] Serum, Saccharomonospora viridis, and Thermoactinomyces candidus. Allergen Phoma betae <0.10 <=0.34 kU/L 08/19/2024 11:52 AM CDT [facility] ([facility]) Immunocap Score See Note 11:52 AM CDT [facility] ([facility]) Comment: REFERENCE INTERVAL: Allergen, Interpretation Less than 0.10 kU/L......Class 0.....No significant level detected 0.10-0.34 kU/L...........Class 0/1...Clinical relevance undetermined 0.35-0.70 kU/L...........Class 1.....Low 0.71-3.50 kU/L...........Class 2.....Moderate 3.51-17.50 kU/L..........Class 3.....High 17.51-50.00 kU/L.........Class 4.....Very High 50.01-100.00 kU/L........Class 5.....Very High Greater than 100.00kU/L..Class 6.....Very High Allergen results of 0.10-0.34 kU/L are intended for specialist use as the clinical relevance is undetermined. Even though increasing ranges are reflective of increasing concentrations of allergen-specific IgE, these concentrations may not correlate with the degree of clinical response or skin testing results when challenged with a specific allergen. The correlation of allergy laboratory results with clinical history and in vivo reactivity to specific allergens is essential. A negative test may not rule out clinical allergy or even anaphylaxis. Performed By: [facility] [address] [place] [address] Carpenter Assembler: Gamaliel Rob MD, PhD CLIA Number: [id number] Blood BLOOD SPECIMEN / Unknown Lab Venipuncture / Unknown 08/13/2024 2:32 PM CDT 08/13/2024 2:58 PM CDT Curtis Rodriguez MD LAB - CHEMISTRY ORDERAB LES Final Result Performing Organization Address City/[facility]/ZIP Co de Phone Number [address] * RHEUMATOID FACTOR BLOOD QUANTITATIVE (08/13/2024 2:32 PM CDT) [facility] Rheumatoid Factor <15 <30 IU/mL 08/13/2024 3:32 PM CDT [facility] Rheumatoid Factor Screen Negative Negative 08/13/2024 3:32 PM CDT [facility] Blood BLOOD SPECIMEN / Unknown Lab Venipuncture / Unknown 08/13/2024 2:32 PM CDT 08/13/2024 2:58 PM CDT Curtis Rodriguez MD LAB - CHEMISTRY ORDERAB LES Final Result Performing Organization Address City/[facility]/ZIP Co de Phone Number [address] [address], [facility] [phone] * ANGEL BLOOD SCREEN W/REFLEX TITER (08/13/2024 2:32 PM CDT) [facility] ANGEL IgG None Detected None Detected 08/14/2024 7:07 PM CDT [facility]) Comment: No Anti-Nuclear Antibodies (ANGEL) detected by ANDRADE. No further testing will be performed. If suspicion of connective tissue disease is strong and ANGEL ANDRADE is negative, consider testing for ANGEL by IFA ([id number]). INTERPRETIVE INFORMATION: Anti-Nuclear Antibodies (ANGEL), IgG by ANDRADE Antinuclear Antibodies (ANGEL), IgG by ANDRADE: ANGEL specimens are screened using enzyme-linked immunosorbent assay (ANDRADE) methodology. All ANDRADE results reported as Detected are further tested by indirect fluorescent assay (IFA) using HEp-2 substrate with an IgG-specific conjugate. The ANGEL ANDRADE screen is designed to detect antibodies against dsDNA, histones, SS-A (Ro), SS-B (La), Wild, Wild/LINE MAINTENANCE, Scl-70, Telma-1, centromeric proteins, other antigens extracted from the HEp-2 cell nucleus. ANGEL ANDRADE assays have been reported to have lower sensitivities than ANGEL IFA for systemic autoimmune rheumatic diseases (SARD). Negative results do not necessarily rule out SARD. Performed By: [facility] [address] [place] [address] Carpenter Assembler: Gamaliel Rob MD, PhD CLIA Number: [id number] Blood BLOOD SPECIMEN / Unknown Lab Venipuncture / Unknown 08/13/2024 2:32 PM CDT 08/13/2024 2:58 PM CDT Curtis Rodriguez MD LAB - CHEMISTRY ORDERAB LES Final Result [facility]) [address] [place] [address] * SS-B (SJOGREN'S) ANTIBODY (08/13/2024 2:32 PM CDT) SS-B Antibody 0 0 - 40 AU/mL 08/15/2024 5:09 AM CDT [facility] [employer] ([facility]) Comment: INTERPRETIVE INFORMATION: SSB (La) (SHANIKA) Ab, IgG 29 AU/mL or Less ............. Negative 30 - 40 AU/mL ................ Equivocal 41 AU/mL or Greater .......... Positive SSB (La) antibody is seen in 50-60% of Sjogren syndrome cases and is specific if it is the only SHANIKA antibody present. 15-25% of patients with systemic lupus erythematosus (SLE) and 5-10% of patients with progressive systemic sclerosis (PSS) also have this antibody. Performed By: [facility] [address] [place] [address] Carpenter Assembler: Gamaliel Rob MD, PhD CLIA Number: [id number] Blood BLOOD SPECIMEN / Unknown Lab Venipuncture / Unknown 08/13/2024 2:32 PM CDT 08/13/2024 2:58 PM CDT Curtis Rodriguez MD LAB - CHEMISTRY ORDERAB LES Final Result [facility] ([facility]) [address] [place] [address], [facility] * SCLERODERMA 70 (SCL) ANTIBODY (08/13/2024 2:32 PM CDT) Pathologist [facility] SCL-70 Antibody 0 0 - 40 AU/mL 08/15/2024 5:09 AM CDT [facility] [employer] ([facility]) Comment: INTERPRETIVE INFORMATION: Scleroderma (Scl-70) (SHANIKA) Ab, IgG 29 AU/mL or Less ............. Negative 30 - 40 AU/mL ................ Equivocal 41 AU/mL or Greater .......... Positive The presence of Scl-70 antibodies (also referred to as topoisomerase I, david-I or JENNY) is considered diagnostic for systemic sclerosis (SSc). Scl-70 antibodies alone are detected in about 20 percent of SSc patients and are associated with the diffuse form of the disease, which may include specific organ involvement and poor prognosis. Scl-70 antibodies have also been reported in a varying percentage of patients with systemic lupus erythematosus (SLE). Scl-70 (david-1) is a DNA binding protein and anti-DNA/DNA complexes in the sera of SLE patients may bind to david-I, leading to a false-positive result. The presence of Scl-70 antibody in sera may also be due to contamination of recombinant Scl-70 with DNA derived from cellular material used in immunoassays. Strong clinical correlation is recommended if both Scl-70 and dsDNA antibodies are detected. Negative results do not necessarily rule out the presence of SSc. If clinical suspicion remains, consider further testing for centromere, RNA polymerase III and U3-LINE MAINTENANCE, PM/Scl, or Th/To antibodies. Performed By: [place] [address] Carpenter Assembler: Gamaliel Rob MD, PhD CLIA Number: [id number] Blood BLOOD SPECIMEN / Unknown Lab Venipuncture / Unknown 08/13/2024 2:32 PM CDT 08/13/2024 2:58 PM CDT Curtis Rodriguez MD LAB - CHEMISTRY ORDERAB LES Final Result Performing Organization Address [facility]/ZIP Co de Phone Number [facility] ([facility]) [address] [place] [address] * CYCLIC CITRULLINATED PEPTIDE(CCP) AB IGG (08/13/2024 2:32 PM CDT) CCP Antibody IgG 1.0 <5.0 U/mL 08/13/2024 3:58 PM CDT [facility] Blood BLOOD SPECIMEN / Unknown Lab Venipuncture / Unknown 08/13/2024 2:32 PM CDT 08/13/2024 2:58 PM CDT Curtis Rodriguez MD LAB - CHEMISTRY ORDERAB LES Final Result [facility] [address] [place] [address], [facility] [phone] * CT Chest Wo Cont And Hires (08/13/2024 2:21 PM CDT) Anatomical Region Laterality Modality Chest Computed Tomogra phy 08/13/2024 2:46 PM CDT Impressions 08/13/2024 3:05 PM CDT Impression: 1.Interstitial lung disease not significantly changed from prior and compatible with chronic hypersensitivity pneumonitis versus nonspecific interstitial pneumonia (NSIP) with minimal bronchiectasis. 2.There is a small to moderate-sized paraesophageal hiatal hernia. > Dictated by Danny Warren DO (residential collections). IBrett MD have personally reviewed and interpreted this examination/study. > Interpreting Provider: Brett Turner MD on 08/13/2024 3:05 PM Narrative 08/13/2024 3:05 PM CDT PROCEDURE: CT CHEST WO ARJUN AND JO-ANN, DATE/TIME OF EXAM: 08/13/2024 2:23 PM, LOCATION [facility] INDICATION: J84.9: Interstitial lung disease (HCC) COMPARISON: CT chest from 01/19/2023 TECHNIQUE: CT of the chest was performed without contrast according to standard protocol. Then, utilizing a high-resolution algorithm, 1 mm noncontiguous axial images of the chest were obtained in inspiration and expiration. Findings: Evaluation of visceral and vascular structures is degraded due to lack of intravenous contrast administration. Lower Neck and Axillae: Normal. Lungs: Basilar predominant with apical basilar gradient of diffuse reticulation and peripheral-based groundglass opacities is redemonstrated appearing similar to prior. These findings are characteristic of chronic hypersensitivity pneumonitis versus NSIP. There is minimal bronchiectasis. No architectural distortion or honeycombing is visible. No air trapping is seen on expiratory images. No pleural fluid or pneumothorax is present. Heart and Pericardium: The cardiac chambers are normal in size. No pericardial fluid or thickening is present. Mediastinum and Antoinette: No enlarged lymph nodes are present. Prominent right paratracheal lymph node is seen. No hilar lymphadenopathy is identified by noncontrast technique. Thoracic Vasculature: The aorta and its branch vessels are atherosclerotic. Bones and Chest Wall: Bone windows demonstrate no suspicious lytic or blastic lesions. The visible osseous structures are intact. Upper Abdomen: Exophytic simple fluid attenuating renal cyst is noted within the interpolar region of the left kidney. The abdominal aorta and its visualized branches are atherosclerotic. There is a small to moderate-sized paraesophageal hiatal hernia (type II hernia). 7 mm measuring hypodense lesion within the hepatic segment 8 (series 3 image 82), likely cyst, unchanged compared to prior study. Procedure Note Brett Turner MD - 08/13/2024 PROCEDURE: CT CHEST WO CONT AND HIRES, DATE/TIME OF EXAM: 52:23 PM, LOCATION [facility] INDICATION: J84.9: Interstitial lung disease (HCC) COMPARISON: CT chest from 01/19/2023 TECHNIQUE: CT of the chest was performed without contrast according to standard protocol. Then, utilizing a high-resolution algorithm, 1 mm noncontiguous axial images of the chest were obtained in inspiration and expiration. Findings: Evaluation of visceral and vascular structures is degraded due to lackof intravenous contrast administration. Lower Neck and Axillae: Normal. Lungs: Basilar predominant with apical basilar gradient of diffuse reticulation and peripheral-based groundglass opacities is redemonstrated appearing similar to prior. These findings are characteristic of chronic hypersensitivity pneumonitis versus NSIP. There is minimalbronchiectasis. No architectural distortion or honeycombing is visible. No air trappingis seen on expiratory images. No pleural fluid or pneumothorax is present. Heart and Pericardium: The cardiac chambers are normal in size. No pericardial fluid orthickening is present. Mediastinum and Antoinette: No enlarged lymph nodes are present. Prominent right paratracheal lymph node is seen. No hilar lymphadenopathy is identified by noncontrast technique. Thoracic Vasculature: The aorta and its branch vessels are atherosclerotic. Bones and Chest Wall: Bone windows demonstrate no suspicious lytic or blastic lesions. The visible osseous structures are intact. Upper Abdomen: Exophytic simple fluid attenuating renal cyst is noted within the interpolar region of the left kidney. The abdominal aorta and its visualized branches are atherosclerotic. There is a small tomoderate-sized paraesophageal hiatal hernia (type II hernia). 7 mm measuring hypodense lesion within the hepatic segment 8 (series 3 image 82), likely cyst, unchanged compared to prior study. Impression: 1.Interstitial lung disease not significantly changed from prior and compatible with chronic hypersensitivity pneumonitis versus nonspecific interstitial pneumonia (NSIP) with minimal bronchiectasis. 2.There is a small to moderate-sized paraesophageal hiatal hernia. > Dictated by Danny Warern DO (residential collections). I, Brett Turner MD have personally reviewed and interpreted this examination/study. > Interpreting Provider: Brett Turner MD on 08/13/2024 3:05 PM Curtis Rodriguez MD CT ORDERABLES Final R esult * ECHO COMPLETE (07/31/2024 2:56 PM CDT) AV area index 1.112 cm /m [facility] P[facility] LA vol index 0.022 l/m [facility] Dimensionless Index 0.681 unitless [facility] Myocardial strain charge 2 unitless [facility] PACS IVSd 2D 0.954 cm [facility] I PACS LVIDd 4.214 cm [facility] I PACS LVIDs 2.997 cm [facility] I PACS LVOT diam 2 cm [facility] I PACS LVPWd 1.005 cm [facility] I PACS LV biplane EF 63.083 % [facility] LV A2C EF 68.55 % [facility] I PACS LV A4C EF 58.115 % [facility] I PACS LV EDV A2C 91.64 ml [facility] CV [facility] PACS LV EDV A4C 72.235 ml [facility] CV [facility] PACS LV ESV A2C 28.821 ml [facility] CV [facility] PACS LV ESV A4C 30.255 ml [facility] CV [facility] PACS LVOT pk grad 5.395 mmHg [facility] LVOT pk david 123.746 cm/s [facility] CV [facility] PACS LVOT VTI 24.41 cm [facility] I PACS RV-fuller basal diam 3.764 cm [facility] RVIDd 3.224 cm [facility] I PACS RVOT diam Doppler 2.951 cm SS M [facility] RVOT pk david 72.615 cm/s S[facility] CV [facility] PACS RVOT VTI 14.006 cm [facility] I PACS LA size 3.68 cm [facility] I PACS LA vol BP 42.525 ml [facility] I PACS RA area 12.044 cm [facility] PACS AV area pk david 2.432 cm [facility] AV area cont VTI 2.14 cm [facility] AV pk david regurg 474.141 cm/s [facility] AR VTI 242.373 cm [facility] CV [facility] I PACS AV pk grad 10.222 mmHg S[facility] CV [facility] PACS AV mn grad 5.045 mmHg SSM CV [facility] PACS AV pk david 159.856 cm/s SSM CV [facility] I PACS AV VTI 35.843 cm SSM CV [facility] I PACS MV A pk david 115.346 cm/s SSM CV [facility] PACS MV E pk david 84.9 cm/s SSM CV [facility] PACS MV E' lateral david 7.766 cm/s SS M CV [facility] PACS PV pk david 72.346 cm/s SSM CV [facility] I PACS PV VTI 15.945 cm SSM CV [facility] I PACS TR pk david 268.653 cm/s SSM CV [facility] I PACS Ascending aorta 2.835 cm SSM CV [facility] PACS IVC Diam Expiration 1.545 cm SSM CV [facility] PACS Sinus of Valsalva 2.9 cm SS M CV [facility] PACS Anatomical Region Laterality Modality Ultrasound 07/31/2024 2:17 PM CDT Narrative 07/31/2024 4:15 PM CDT Summary * The left ventricle is normal in size, with normal systolic function and an estimated ejection fraction of 63 % by biplane method of disks. Left ventricular wall motion is normal. * The left ventricular diastolic function is normal. * Right ventricle is dilated with normal systolic function. * The pulmonary artery systolic pressure is normal, 32 mmHg. * There is mild to moderate aortic valve regurgitation. * There is mild tricuspid valve regurgitation. * There is mild pulmonic regurgitation. Patient Info Name: Viviane Escalera Age: 58 years : 1965 Gender: Female Ht: 63 in Wt: 178 lb BSA: 1.92 m2 HR: 65 bpm BP: 116 / 80 mmHg Heart Rhythm: Sinus Rhythm Exam Date: 07/31/2024 2:17 PM Patient Status: O/P Study Site: [facility] Primary Location: [facility] EStudy Info Technical Quality: Adequate Exam Type: ECHO COMPLETE Indications R06.02 - SOB (shortness of breath) on exertion J96.11 - Chronic hypoxemic respiratory failure (HCC) Procedure(s) * A complete 2D, color Doppler, spectral Doppler, and M-Mode transthoracic echocardiogram was performed. Staff Referring Physician: Mic Solano Ordering Provider: Mic Solano Attending Physician: Mic Solano Lamp Inspector: Radha Elena Left Ventricle The left ventricle is normal in size. Left ventricular systolic function is normal with an estimated ejection fraction of 63 % by biplane method of disks. The left ventricular mass is normal. Left ventricular segmental wall motion is normal. The left ventricular diastolic function is normal. Right Ventricle The right ventricle is dilated. Right ventricular systolic function is normal. Left Atrium The left atrium is normal in size with a left atrial volume index of 22 ml/m2 by BP MOD. Right Atrium The right atrium is dilated. Atrial Septum Intact interatrial septum visualized by 2D and color Doppler imaging. Aortic Valve The aortic valve is not well visualized. There is no aortic valve stenosis. There is mild to moderate aortic valve regurgitation. Pulmonic Valve The pulmonic valve is normal. There is no pulmonic valve stenosis. There is mild pulmonic regurgitation. Mitral Valve The mitral valve is normal. There is no mitral valve stenosis. There is no mitral valve regurgitation. Tricuspid Valve The tricuspid valve is normal. There is mild tricuspid valve regurgitation. The pulmonary artery systolic pressure is normal, 32 mmHg. Inferior Vena Cava The inferior vena cava is normal in size (< 2.1 cm). There is < 50% collapse of the IVC upon inspiration with an estimated right atrial pressure of 3 mmHg. Pericardium/Pleural There is no pericardial effusion. Aorta The aortic root at the sinus of Valsalva is normal in size. The ascending aorta is normal in size. Measurements Left Ventricular Outflow Tract Name Value Normal LVOT 2D LVOT Diameter 2.0 cm LVOT Area 3.1 cm2 LVOT Doppler LVOT Peak Velocity 1.2 m/s LVOT Peak Gradient 5 mmHg LVOT Mean Velocity 69.53 cm/s LVOT Mean Gradient 2 mmHg LVOT VTI 24.4 cm LVOT VTI/AV VTI Ratio 0.7 LVOT Stroke Volume 77 ml LVOT Stroke Volume Index 40 ml/m2 35-58 LVOT CO 5.0 l/min LVOT CI 2.6 l/min/m2 Pulmonic Valve Name Value Normal PV 2D RVOT Diameter (2D) 3.0 cm 1.7-2.7 RVOT Doppler RVOT Peak Velocity 0.7 m/s RVOT Peak Gradient 2 mmHg RVOT Mean Gradient 1 mmHg PV Doppler PV Peak Velocity 0.7 m/s PV Peak Gradient 2 mmHg PV Mean Gradient 1 mmHg PV Area (Cont Eq VTI) 6.00 cm2 PV Area Index (Cont Eq VTI) 3.12 cm2/m2 PV Area (Cont Eq David) 6.9 cm2 PV Area Index (Cont Eq Dvaid) 3.56 cm2/m2 Mitral Valve Name Value Normal MV Diastolic Function MV E Peak Velocity 0.8 m/sec MV A Peak Velocity 1.2 m/sec MV E/A 0.7 MV Decel Time (PW) 245 ms MV A Wave Duration 128 ms MV Annular TDI MV Septal e' Velocity 6 cm/s >=8 MV E/e' (Septal) 15 <=8 MV Lateral e' Velocity 8 cm/s >=10 MV E/e' (Lateral) 11 <=8 MV e' Average 7 cm/s MV E/e' (Average) 13 Tricuspid Valve Name Value Normal TV 2D TV Annulus Diameter (4C) 3.9 cm TV Regurgitation Doppler TR Peak Velocity 2.7 m/s TR Peak Gradient 29 mmHg Estimated PAP/RSVP RA Pressure 3 mmHg <=5 PA Systolic Pressure 32 mmHg <35 RV Systolic Pressure 32 mmHg <36 TV Annular TDI TV Lateral Tatianna s' Velocity 9 cm/s 10-19 Pulmonary Vessels Name Value Normal Pulmonary Veins Pulm Vein Peak Systolic Velocity 57.1 cm/s Pulm Vein Peak Diastolic Velocity 61.3 cm/s Pulm Vein S/D Velocity Ratio 1 Pulm Vein Ar Velocity 33.1 cm/s Pulm Vein Ar Dur - MV A Dur -17 ms Aorta Name Value Normal Ascending Aorta Sinus of Valsalva Diameter 2.9 cm 2.4-3.6 Sinus of Valsalva Index 1.5 cm/m2 1.4-2.2 Asc Ao Diameter 2.8 cm 1.9-3.5 Asc Ao Diameter Index 1.5 cm/m2 1.0-2.2 Septae/Shunt/Generic Name Value Normal Qp/Qs Qp/Qs 1.2 Venous Name Value Normal IVC/SVC IVC Diameter 1.5 cm <=2.1 Aortic Valve Name Value Normal AV Doppler AV Peak Velocity 1.60 m/s AV Peak Gradient 10 mmHg AV Mean Gradient 5 mmHg AV VTI 36 cm AV Area (Cont Eq VTI) 2.14 cm2 >=2.00 AV Area (Cont Eq David) 2.43 cm2 AV DI (VTI) 0.68 AV DI (David) 0.77 AV Regurgitation 2D LVOT Area 3.14 cm2 Ventricles Name Value Normal LV Dimensions 2D/MM IVS Diastolic Thickness (2D) 1.0 cm 0.6-0.9 LVID Diastole (2D) 4.2 cm 3.8-5.2 LVPW Diastolic Thickness (2D) 1.0 cm 0.6-0.9 IVS Systolic Thickness (2D) 1.3 cm LVID Systole (2D) 3.0 cm 2.2-3.5 LVPW Systolic Thickness (2D) 1.3 cm LV Mass (2D Cubed) 132 g 67-162 LV Mass Index (2D Cubed) 68 g/m2 43-95 Relative Wall Thickness (2D) 0.48 <=0.42 LV Fractional Shortening/Ejection Fraction 2D/MM LV Fractional Shortening (2D) 29 % 27-45 LV EF (2D Teicholz) 56 % 54-74 LV Diastolic Volume (4C MOD) 72 ml LV EF (4C MOD) 58 % LV Diastolic Volume (2C MOD) 92 ml LV EF (2C MOD) 69 % LV Diastolic Volume (BP MOD) 82 ml 46-106 LV Diastolic Volume Index (BP MOD) 43 ml/m2 29-61 LV Systolic Volume (BP MOD) 30 ml 14-42 LV Systolic Volume Index (BP MOD) 16 ml/m2 8-24 LV EF (BP MOD) 63 % 54-74 LV Diastolic Length (4C) 7.4 cm LV Systolic Length (4C) 5.8 cm LV Stroke Volume (4C MOD) 42 ml RV Dimensions 2D/MM RVID Diastole (2D) 3.2 cm 2.5-3.5 RVID Systole (2D) 2.4 cm RV Basal Diastolic Dimension 3.8 cm 2.5-4.1 RV Diastolic Length (4C) 5.6 cm 5.9-8.3 Atria Name Value Normal LA Dimensions LA Dimension (2D) 3.7 cm 2.7-3.8 LA Dimen Index (2D) 1.9 cm/m2 LA Volume (BP MOD) 43 ml LA Volume Index (BP MOD) 22 ml/m2 16-34 RA Dimensions RA Area (4C) 12 cm2 <=18 RA Area (4C) Index 6 cm2/m2 Report Signatures Finalized by Mauricio Yoder DR on 07/31/2024 04:15 PM Procedure Note Mauricio Yoder MD - 07/31/2024 Summary * The left ventricle is normal in size, with normal systolic functionand an estimated ejection fraction of 63 % by biplane method of disks. Left ventricular wall motion is normal. * The left ventricular diastolic function is normal. * Right ventricle is dilated with normal systolic function. * The pulmonary artery systolic pressure is normal, 32 mmHg. * There is mild to moderate aortic valve regurgitation. * There is mild tricuspid valve regurgitation. * There is mild pulmonic regurgitation. Patient Info Name: Viviane Escalera Age: 58 years : 1965 Gender: Female Ht: 63 in Wt: 178 lb BSA: 1.92 m2 HR: 65 bpm BP: 116 / 80 mmHg Heart Rhythm: Sinus Rhythm Exam Date: 07/31/2024 2:17 PM Patient Status: O/P Study Site: [facility] Primary Location: [facility] EStudy Info Technical Quality: Adequate Exam Type: ECHO COMPLETE Indications R06.02 - SOB (shortness of breath) on exertion J96.11 - Chronic hypoxemic respiratory failure (HCC) Procedure(s) * A complete 2D, color Doppler, spectral Doppler, and M-Modetransthoracic echocardiogram was performed. Staff Referring Physician: Mic Solano Ordering Provider: Mic Solano Attending Physician: Mic Solano Lamp Inspector: Radha Elena Left Ventricle The left ventricle is normal in size. Left ventricular systolic functionis normal with an estimated ejection fraction of 63 % by biplane method ofdisks. The left ventricular mass is normal. Left ventricular segmental wallmotion is normal. The left ventricular diastolic function is normal. Right Ventricle The right ventricle is dilated. Right ventricular systolic function is normal. Left Atrium The left atrium is normal in size with a left atrial volume index of22 ml/m2 by BP MOD. Right Atrium The right atrium is dilated. Atrial Septum Intact interatrial septum visualized by 2D and color Doppler imaging. Aortic Valve The aortic valve is not well visualized. There is no aortic valvestenosis. There is mild to moderate aortic valve regurgitation. Pulmonic Valve The pulmonic valve is normal. There is no pulmonic valve stenosis. Thereis mild pulmonic regurgitation. Mitral Valve The mitral valve is normal. There is no mitral valve stenosis. There isno mitral valve regurgitation. Tricuspid Valve The tricuspid valve is normal. There is mild tricuspid valveregurgitation. The pulmonary artery systolic pressure is normal, 32 mmHg. Inferior Vena Cava The inferior vena cava is normal in size (< 2.1 cm). There is < 50%collapse of the IVC upon inspiration with an estimated right atrial pressure of 3mmHg. Pericardium/Pleural There is no pericardial effusion. Aorta The aortic root at the sinus of Valsalva is normal in size. Theascending aorta is normal in size. Measurements Left Ventricular Outflow Tract Name Value Normal LVOT 2D LVOT Diameter 2.0 cm LVOT Area 3.1 cm2 LVOT Doppler LVOT Peak Velocity 1.2 m/s LVOT Peak Gradient 5 mmHg LVOT Mean Velocity 69.53 cm/s LVOT Mean Gradient 2 mmHg LVOT VTI 24.4 cm LVOT VTI/AV VTI Ratio 0.7 LVOT Stroke Volume 77 ml LVOT Stroke Volume Index 40 ml/m2 35-58 LVOT CO 5.0 l/min LVOT CI 2.6 l/min/m2 Pulmonic Valve Name Value Normal PV 2D RVOT Diameter (2D) 3.0 cm 1.7-2.7 RVOT Doppler RVOT Peak Velocity 0.7 m/s RVOT Peak Gradient 2 mmHg RVOT Mean Gradient 1 mmHg PV Doppler PV Peak Velocity 0.7 m/s PV Peak Gradient 2 mmHg PV Mean Gradient 1 mmHg PV Area (Cont Eq VTI) 6.00 cm2 PV Area Index (Cont Eq VTI) 3.12 cm2/m2 PV Area (Cont Eq David) 6.9 cm2 PV Area Index (Cont Eq David) 3.56 cm2/m2 Mitral Valve Name Value Normal MV Diastolic Function MV E Peak Velocity 0.8 m/sec MV A Peak Velocity 1.2 m/sec MV E/A 0.7 MV Decel Time (PW) 245 ms MV A Wave Duration 128 ms MV Annular TDI MV Septal e' Velocity 6 cm/s >=8 MV E/e' (Septal) 15 <=8 MV Lateral e' Velocity 8 cm/s >=10 MV E/e' (Lateral) 11 <=8 MV e' Average 7 cm/s MV E/e' (Average) 13 Tricuspid Valve Name Value Normal TV 2D TV Annulus Diameter (4C) 3.9 cm TV Regurgitation Doppler TR Peak Velocity 2.7 m/s TR Peak Gradient 29 mmHg Estimated PAP/RSVP RA Pressure 3 mmHg <=5 PA Systolic Pressure 32 mmHg <35 RV Systolic Pressure 32 mmHg <36 TV Annular TDI TV Lateral Tatianna s' Velocity 9 cm/s 10-19 Pulmonary Vessels Name Value Normal Pulmonary Veins Pulm Vein Peak Systolic Velocity 57.1 cm/s Pulm Vein Peak Diastolic Velocity 61.3 cm/s Pulm Vein S/D Velocity Ratio 1 Pulm Vein Ar Velocity 33.1 cm/s Pulm Vein Ar Dur - MV A Dur -17 ms Aorta Name Value Normal Ascending Aorta Sinus of Valsalva Diameter 2.9 cm 2.4-3.6 Sinus of Valsalva Index 1.5 cm/m2 1.4-2.2 Asc Ao Diameter 2.8 cm 1.9-3.5 Asc Ao Diameter Index 1.5 cm/m2 1.0-2.2 Septae/Shunt/Generic Name Value Normal Qp/Qs Qp/Qs 1.2 Venous Name Value Normal IVC/SVC IVC Diameter 1.5 cm <=2.1 Aortic Valve Name Value Normal AV Doppler AV Peak Velocity 1.60 m/s AV Peak Gradient 10 mmHg AV Mean Gradient 5 mmHg AV VTI 36 cm AV Area (Cont Eq VTI) 2.14 cm2 >=2.00 AV Area (Cont Eq David) 2.43 cm2 AV DI (VTI) 0.68 AV DI (David) 0.77 AV Regurgitation 2D LVOT Area 3.14 cm2 Ventricles Name Value Normal LV Dimensions 2D/MM IVS Diastolic Thickness (2D) 1.0 cm 0.6-0.9 LVID Diastole (2D) 4.2 cm 3.8-5.2 LVPW Diastolic Thickness (2D) 1.0 cm 0.6-0.9 IVS Systolic Thickness (2D) 1.3 cm LVID Systole (2D) 3.0 cm 2.2-3.5 LVPW Systolic Thickness (2D) 1.3 cm LV Mass (2D Cubed) 132 g 67-162 LV Mass Index (2D Cubed) 68 g/m2 43-95 Relative Wall Thickness (2D) 0.48 <=0.42 LV Fractional Shortening/Ejection Fraction 2D/MM LV Fractional Shortening (2D) 29 % 27-45 LV EF (2D Teichyvonnez) 56 % 54-74 LV Diastolic Volume (4C MOD) 72 ml LV EF (4C MOD) 58 % LV Diastolic Volume (2C MOD) 92 ml LV EF (2C MOD) 69 % LV Diastolic Volume (BP MOD) 82 ml 46-106 LV Diastolic Volume Index (BP MOD) 43 ml/m2 29-61 LV Systolic Volume (BP MOD) 30 ml 14-42 LV Systolic Volume Index (BP MOD) 16 ml/m2 8-24 LV EF (BP MOD) 63 % 54-74 LV Diastolic Length (4C) 7.4 cm LV Systolic Length (4C) 5.8 cm LV Stroke Volume (4C MOD) 42 ml RV Dimensions 2D/MM RVID Diastole (2D) 3.2 cm 2.5-3.5 RVID Systole (2D) 2.4 cm RV Basal Diastolic Dimension 3.8 cm 2.5-4.1 RV Diastolic Length (4C) 5.6 cm 5.9-8.3 Atria Name Value Normal LA Dimensions LA Dimension (2D) 3.7 cm 2.7-3.8 LA Dimen Index (2D) 1.9 cm/m2 LA Volume (BP MOD) 43 ml LA Volume Index (BP MOD) 22 ml/m2 16-34 RA Dimensions RA Area (4C) 12 cm2 <=18 RA Area (4C) Index 6 cm2/m2 Report Signatures Finalized by Mauricio Yoder DR on 07/31/2024 04:15 PM Mic Solano MD DIONTE CUPBRANDO Final Result * [facility] (07/28/2024 8:51 AM CDT) [facility] Miscellaneous Test COMMENT 08/08/2024 12:10 PM CDT [facility] ([facility]) Comment: Test Ordered: [id number] Methotrexate Polyglutamates Methotrexate PG Total <3 01 Units of Measure: nmol/L RBC Interpretation: The above result is consistent with subtherapeutic. 75 or greater: Consistent with therapeutic efficacy 20 - 74: Intermediate Less than 20: Consistent with subtherapeutic Methotrexate PG1 (parent drug) 0 01 Units of Measure: nmol/L RBC Methotrexate PG2 0 01 Units of Measure: nmol/L RBC Methotrexate PG3 0 01 Units of Measure: nmol/L RBC Methotrexate PG4 0 01 Units of Measure: nmol/L RBC Methotrexate PG5 1 01 Units of Measure: nmol/L RBC Interpretation Comment 01 See Text Total MTX PG is the sum of Methotrexate PG1 through PG5. Total MTX PG greater than 74 nmol/L at 3 months is consistent with therapeutic efficacy (1). MTX PG1 is the unmodified/la posta circulating parent drug. MTX PG2 and long-chain MTX polyglutamates (MTX PG3, MTX PG4, MTX PG5) are formed and retained intracellularly (1). Clinical response may be mediated by long-chain MTX PGs (2). It may take 3 - 6 months of stable dosing to reach steady state MTX PG concentrations (1). Sample collection should be at least 36 hours after the last dose. 1.Stacey M et al. [place] Rheum Dis 2015;74:408-414. 2.Mireya E et al. [place] Rheum Dis 2013;72:A542. This test was developed and its performance characteristics determined by [facility]. It has not been cleared or approved by the Food and Drug Administration. Other BLOOD SPECIMEN / Unknown Collection / Unknown 07/28/2024 8:51 AM CDT 07/28/2024 10:30 AM CDT Narrative [facility] ([facility]) - 08/08/2024 12:10 PM CDT Performed at: [address] [place] [address] [id number] Tapper Bit: Spencer Fitzgerald PhD, Phone: [phone] us Mic Solano MD LAB - CHEMISTRY ORDERABLES Final Result [facility] ([facility]) [address] [place] [address], [facility] * THIOPURINE METHYLTRANSFERASE (07/28/2024 8:51 AM CDT) [facility] Thiopurine Methyltransferase 26.5 24.0 - 44.0 U/mL 08/01/2024 9:23 AM CDT [facility] ([facility]) Comment: INTERPRETIVE INFORMATION: Thiopurine Methyltransferase, RBC Normal TPMT activity: 24.0-44.0 U/mL................Individuals are predicted to be at low risk of bone marrow toxicity (myelosuppression) as a consequence of standard thiopurine therapy; no dose adjustment is recommended. Intermediate TPMT activity: 17.0-23.9 U/mL................Individuals are predicted to be at intermediate risk of bone marrow toxicity (myelosuppression) as a consequence of standard thiopurine therapy; a dose reduction and therapeutic drug management is recommended. Low TPMT activity: less than 17.0 U/mL...........Individuals are predicted to be at high risk of bone marrow toxicity (myelosuppression) as a consequence of standard thiopurine dosing. It is recommended to avoid the use of thiopurine drugs. High TPMT activity: greater than 44.0 U/mL........Individuals are not predicted to be at risk for bone marrow toxicity (myelosuppression) as a consequence of standard thiopurine dosing, but may be at risk for therapeutic failure due to excessive inactivation of thiopurine drugs. Individuals may require higher than the normal standard dose. Therapeutic drug management is recommended. The TPMT, RBC assay is used as a screen to detect individuals with low and intermediate TPMT activity who may be at risk for myelosuppression when exposed to standard doses of thiopurines, including azathioprine (Imuran) and 6-mercaptopurine (Purinethol). TPMT is the primary metabolic route for inactivation of thiopurine drugs in the bone marrow. When TPMT activity is low, it is predicted that proportionately more 6-mercaptopurine can be converted into the cytotoxic 6-thioguanine nucleotides that accumulate in the bone marrow causing excessive toxicity. The activity of TPMT is measured by the nanomoles of 6-methylmercaptopurine (inactive metabolite) produced per 1 mL of packed red blood cells, (U/mL). TPMT phenotype testing does not replace the need for clinical monitoring of patients treated with thiopurine drugs. Genotype for TPMT cannot be inferred from TPMT activity (phenotype). Phenotype testing should not be requested for patients currently treated with thiopurine drugs. Current TPMT phenotype may not reflect future TPMT phenotype, particularly in patients who received blood transfusion within 30-60 days of testing. TPMT enzyme activity can be inhibited by several drugs such as: naproxen (Aleve), ibuprofen (Advil, Motrin), ketoprofen (Orudis), furosemide (Lasix), sulfasalazine (Azulfidine), mesalamine (Asacol), olsalazine (Dipentum), mefenamic acid (Ponstel), thiazide diuretics, and benzoic acid inhibitors. TPMT inhibitors may contribute to falsely low results; patients should abstain from these drugs for at least 48 hours prior to TPMT testing. Falsely low results may also occur as a result of inappropriate specimen handling and hemolysis. This test was developed and its performance characteristics determined by [facility]. It has not been cleared or approved by the [place] Food and Drug Administration. This test was performed in a CLIA certified laboratory and is intended for clinical purposes. Performed By: [facility] [address] [place] [address] Carpenter Assembler: Gamaliel Rob MD, PhD CLIA Number: [id number] Blood BLOOD SPECIMEN / Unknown Lab Venipuncture / Unknown 07/28/2024 8:51 AM CDT 07/28/2024 9:24 AM CDT Mic Solano MD LAB - CHEMISTRY ORDERABLES Final Result [facility] ([facility]) [address], [place] [address] * CBC W/ DIFFERENTIAL (07/28/2024 8:51 AM [facility]) [facility] Signature WBC 7.8 4.0 - 10.7 x10E9/L 07/28/2024 9:36 AM [facility] RBC Count 4.32 3.90 - 5.20 x10E12/L 07/28/2024 9:36 AM [facility] Hemoglobin 13.2 11.9 - 15.8 g/dL 07/28/2024 9:36 AM [facility] Hematocrit 39.5 34.8 - 46.1 % 07/28/2024 9:36 AM [facility] MCV 91.4 80.0 - 98.0 fL 07/28/2024 9:36 AM [facility] MCH 30.6 26.7 - 33.6 pg 07/28/2024 9:36 AM [facility] MCHC 33.4 31.7 - 36.3 g/dL 07/28/2024 9:36 AM [facility] RDW-CV 12.8 11.3 - 14.8 % 07/28/2024 9:36 AM [facility] Platelet Count 299 150 - 420 x10E9/L 07/28/2024 9:36 AM [facility] MPV 10.4 7.8 - 11.4 fL 07/28/2024 9:36 AM [facility] Neutrophil % 56.5 41.0 - 74.0 % 07/28/2024 9:36 AM [facility] Lymphocyte % 28.5 17.0 - 47.0 % 07/28/2024 9:36 AM [facility] Monocyte % 10.3 3.0 - 11.0 % 07/28/2024 9:36 AM [facility] Eosinophil % 3.2 0.0 - 7.0 % 07/28/2024 9:36 AM [facility] Basophil % 1.2 0.0 - 1.6 % 07/28/2024 9:36 AM [facility] Immature Granulocytes % 0.3 0.0 - 1.0 % 07/28/2024 9:36 AM [facility] Neutrophil Absolute 4.39 1.60 - 7.50 x10E9/L 07/28/2024 9:36 AM [facility] Lymphocyte Absolute 2.21 1.00 - 4.40 x10E9/L 07/28/2024 9:36 AM [facility] Monocyte Absolute 0.80 0.15 - 1.00 x10E9/L 07/28/2024 9:36 AM [facility] Eosinophil Absolute 0.25 0.00 - 0.60 x10E9/L 07/28/2024 9:36 AM [facility] Basophil Absolute 0.09 0.00 - 0.13 x10E9/L 07/28/2024 9:36 AM [facility] Blood BLOOD SPECIMEN / Unknown Lab Venipuncture / Unknown 07/28/2024 8:51 AM CDT 07/28/2024 9:32 AM CDT Mic Solano MD LAB - HEMATOLOGY ORDERABLES Chelsey l Result [facility] [address] [place] [address] [phone] * B-TYPE NATRIURETIC PEPTIDE (07/28/2024 8:51 AM CDT) BNP 96 <100 pg/mL 07/28/2024 10:09 AM [facility] Comment: A decision threshold of 100 pg/mL has been demonstrated to provide the maximal combination of sensitivity, specificity and predictive value for the diagnosis of congestive heart failure (CHF). Virtually all patients with no evidence of CHF have BNP values less than 100 pg/mL. A BNP value greater than 100 pg/mL is consistent with the diagnosis of CHF in the appropriate clinical setting. In a study of 693 patients (male and female) with diagnosed CHF, the following values were determined based on the NYHA functional classification system: NYHA Functional Class Mean Valule (pg/mL) % >100 pg/mL I 320 58.1 II 432 73.0 III 656 79.0 IV 1635 98.3 Blood BLOOD SPECIMEN / Unknown Lab Venipuncture / Unknown 07/28/2024 8:51 AM CDT 07/28/2024 9:32 AM CDT us Mic Solano MD LAB - CHEMISTRY ORDERABLES Final Result [facility] [address] [place] [address], [facility] [phone] * (ABNORMAL) COMPREHENSIVE METABOLIC PANEL (07/28/2024 8:51 AM CDT) BUN 14 7 - 26 mg/dL 07/28/2024 4:56 PM [facility] Creatinine 0.78 0.56 - 0.96 mg/dL 07/28/2024 4:56 PM [facility] Sodium 139 136 - 145 mmol/L 07/28/2024 4:56 PM [facility] Potassium 4.3 3.5 - 4.5 mmol/L 07/28/2024 4:56 PM [facility] Chloride 108(H) 98 - 107 mmol/L 07/28/2024 4:56 PM [facility] CO2 15(L) 22 - 29 mmol/L 07/28/2024 4:56 PM [facility] Glucose 87 70 - 99 mg/dL 07/28/2024 4:56 PM [facility] Calcium 9.3 8.4 - 10.2 mg/dL 07/28/2024 4:56 PM [facility] Protein Total 6.8 6.0 - 8.3 g/dL 07/28/2024 4:56 PM [facility] Albumin 3.7 3.4 - 5.0 g/dL 07/28/2024 4:56 PM [facility] Bilirubin Total 0.3 0.2 - 1.2 mg/dL 07/28/2024 4:56 PM [facility] Alkaline Phosphatase 63 40 - 150 U/L 07/28/2024 4:56 PM [facility] ALT 8 5 - 55 U/L 07/28/2024 4:56 PM [facility] AST 19 5 - 34 U/L 07/28/2024 4:56 PM T [facility] Anion Gap 16 6 - 16 07/28/2024 4:56 PM [facility] BUN/Creatinine Ratio 18 7 - 23 07/28/2024 4:56 PM T [facility] Osmolality Calculated 288 275 - 295 mOsm/kg 07/28/2024 4:56 PM T [facility] Albumin/Globulin Ratio 1.2 1.1 - 2.3 07/28/2024 4:56 PM [facility] eGFR by CKD-EPI 87(L) >=90 mL/min/1.7 3 m2 07/28/2024 4:56 PM [facility] Blood BLOOD SPECIMEN / Unknown Lab Venipuncture / Unknown 07/28/2024 8:51 AM CDT 07/28/2024 9:32 AM CDT Narrative [facility] - 07/28/2024 4:56 PM CDT Estimated Glomerular Filtration Rate (eGFR) calculated using the CKD-EPI Creatinine Equation (2020), per the National Kidney Foundation and [place] [employer]ph[employer] recommendations. us Mic Solano MD LAB - CHEMISTRY ORDERABLES Final Result [facility] [address] [place] [address], [facility] [phone] * Mammo Bilat Screening W Wang (01/09/2024 9:53 AM COMPUTER SPECIALIST) Anatomical Region Laterality Modality Breast Bilateral Mammography 01/09/2024 10:5 6 AM COMPUTER SPECIALIST Impressions 01/09/2024 11:19 AM COMPUTER SPECIALIST IMPRESSION: No mammographic evidence of malignancy. RECOMMENDATION: Screening mammography in one year, pending no interval breast concerns. Patient will receive the examination results by lay letter. OVERALL ASSESSMENT: BI-RADS CATEGORY 1: NEGATIVE. > Dictated by Juanjose Ramos MD I, Isabela Phillip MD, FACR have personally reviewed and interpreted this examination/study. > Interpreting Provider: Isabela Phillip MD, FACR on 01/09/2024 11:19 AM Narrative 01/09/2024 11:19 AM COMPUTER SPECIALIST EXAMINATIONS: BILATERAL DIGITAL SCREENING MAMMOGRAM AND BILATERAL BREAST TOMOSYNTHESIS LOCATION: [facility] EXAM DATE: 01/09/2024 HISTORY: Screening. Family history of breast cancer in patient's mother at age 45 and patient's sister at age 50. Family history of lung cancer in patient's sister, colon cancer in patient's sister, rectal cancer in patient's sister and bladder cancer in patient's father. RISK ASSESSMENT CALCULATION: Patient completed a breast cancer risk assessment during her appointment 01/09/2024. Based upon the information she provided and her mammographic breast density, her lifetime risk of developing breast cancer is 16 % (Average Risk <15%; Intermediate / Moderate Risk 15-19; High Risk > 20%). Risk assessment based upon the Tyrer-Cuzick v8 model. By the NCCN guidelines and family history of breast cancer, consideration of genetic testing is recommended, if not already performed. COMPARISON: Screening mammogram 01/05/2021. Screening mammogram 01/19/2020 performed at [place], [place] TECHNIQUE: Tomosynthesis (3D) and reconstructed synthetic 2-D images acquired and reviewed in the bilateral craniocaudal and mediolateral oblique projections. A total of 4 images obtained. BREAST PARENCHYMAL COMPOSITION: Category B: There are scattered areas of fibroglandular density. FINDINGS: There are no suspicious findings or evidence of malignancy on mammography. There is no significant change from the prior. us Nhan Mcdaniel MD MAMMO ORDERABLES Final Result * CT LUNG SCREEN LOW DOSE (01/30/2022 12:47 PM COMPUTER SPECIALIST) Anatomical Region Laterality Modality Chest Computed Tomogra phy 01/30/2022 1:36 PM COMPUTER SPECIALIST Impressions 01/30/2022 1:57 PM COMPUTER SPECIALIST Impression: 1.No suspicious pulmonary nodule. Lung-RADS: 1 2.Worsening chronic interstitial lung disease in the bilateral lower lobes. No evidence of honeycombing. The first diagnosed includes fibrotic nonspecific interstitial pneumonia versus chronic hypersensitivity pneumonia. LungRADS Categories: 1 - Negative (no nodules, or only benign calcified or fat-containing nodules) 2 - Benign Appearance or Behavior (nodules with very low likelihood of becoming a clinically active cancer due to size or lack of growth) 3 - Probably Benign (probably benign findings-short term follow up suggested; includes nodules with a low likelihood of becoming a clinically active cancer) 4A,4B,4X - Suspicious (category 3 or 4 nodules with findings for which additional diagnostic testing and/or tissue sampling is recommended) S - Other (clinically significant or potentially clinically significant findings (non-lung cancer) Report drafted by Mitchel Chen DO (resident) I, Davide Olivas MD have personally reviewed and interpreted this examination/study. > Interpreting Provider: Davide Olivas MD on 01/30/2022 1:57 PM Narrative 01/30/2022 1:57 PM COMPUTER SPECIALIST PROCEDURE: CT LUNG SCREEN LOW DOSE, DATE/TIME OF EXAM: 01/30/2022 12:48 PM, LOCATION [facility] INDICATION: [id number]: Former smoker COMPARISON: CT chest without contrast dated 07/26/2020 TECHNIQUE: CT of the chest was performed without contrast according to low-dose protocol. Findings Evaluation of visceral and vascular structures is degraded due to lack of intravenous contrast administration. Lines/Tubes: None. Lower neck and axillae: Normal. Mediastinum and Antoinette: Unchanged mildly prominent subcentimeter lymph nodes. Heart and Pericardium: The cardiac chambers are normal in size. No pericardial fluid or thickening is present. Pulmonary Parenchyma and Airways: Redemonstrated bilateral peripheral predominant reticulations and groundglass opacities with scattered areas of traction bronchiectasis, which have slightly progressed in the lower lobes. No evidence of honeycombing. No suspicious pulmonary nodules. Pleural Space: No pleural effusion or pneumothorax is present. Bones and Soft Tissue: The visible osseous structures are intact. Upper Abdomen: The visible upper abdominal viscera are unremarkable. Procedure Note Davide Olivas MD - 01/30/2022 PROCEDURE: CT LUNG SCREEN LOW DOSE, DATE/TIME OF EXAM: 2:48 PM, LOCATION [facility] INDICATION: [id number]: Former smoker COMPARISON: CT chest without contrast dated 07/26/2020 TECHNIQUE: CT of the chest was performed without contrast according to low-dose protocol. Findings Evaluation of visceral and vascular structures is degraded due to lackof intravenous contrast administration. Lines/Tubes: None. Lower neck and axillae: Normal. Mediastinum and Antoinette: Unchanged mildly prominent subcentimeter lymph nodes. Heart and Pericardium: The cardiac chambers are normal in size. No pericardial fluid orthickening is present. Pulmonary Parenchyma and Airways: Redemonstrated bilateral peripheral predominant reticulations and groundglass opacities with scattered areas of traction bronchiectasis, which have slightly progressed in the lower lobes. No evidence of honeycombing. No suspicious pulmonary nodules. Pleural Space: No pleural effusion or pneumothorax is present. Bones and Soft Tissue: The visible osseous structures are intact. Upper Abdomen: The visible upper abdominal viscera are unremarkable. Impression: 1.No suspicious pulmonary nodule. Lung-RADS: 1 2.Worsening chronic interstitial lung disease in the bilateral lowerlobes. No evidence of honeycombing. The first diagnosed includes fibrotic nonspecific interstitial pneumonia versus chronic hypersensitivity pneumonia. LungRADS Categories: 1 - Negative (no nodules, or only benign calcified or fat-containing nodules) 2 - Benign Appearance or Behavior (nodules with very low likelihood of becoming a clinically active cancer due to size or lack of growth) 3 - Probably Benign (probably benign findings-short term follow up suggested; includes nodules with a low likelihood of becoming aclinically active cancer) 4A,4B,4X - Suspicious (category 3 or 4 nodules with findings for which additional diagnostic testing and/or tissue sampling is recommended) S - Other (clinically significant or potentially clinically significant findings (non-lung cancer) Report drafted by Mitchel Chen DO (resident) I, Davide Olivas MD have personally reviewed and interpreted this examination/study. > Interpreting Provider: Davide Olivas MD on 01/30/2022 1:57 PM Celestina Machado [employer] DEPARTMENT SUPERVISOR-MAINTENANCE MECHANIC TELEPHONE CT ORDERABLES Final Resu lt * HPV DETECTION HIGH RISK ADRIANNA (12/09/2020 10:42 AM CDT) High Risk Human Papilloma Result Not detected Not detected 12/17/2020 7:10 AM CDT [facility] High Risk Human Papilloma Interp 12/17/2020 7:10 AM CDT [facility] Comment:High Risk Human Roland lloma Virus was Not Detected. Pathology/Cytolo gy MISCELLANEOUS SAMPLES / Unknown 12/09/2020 10:42 AM CDT 12/09/2020 12:15 PM CDT Narrative [facility] - 12/17/2020 7:10 AM CDT Nucleic acid isolated from the specimen was analyzed with a nucleic acid amplification test (FDA approved Gen-Probe HPV Assay) to detect high risk human papilloma virus (Types: 16, 18, 31, 33, 35, 39, 45, 51, 52, 56, 58, 59, 66, and 68). The reference range is Not Detected. Comment: These test results should not be used as the sole basis for clinical assessment and treatment of patients. These results should always be correlated with other available data (cytology, histology, and clinical information). Rl SUGGSMAINTENANCE MECHANIC TELEPHONE LAB - MICROBIOLOGY OR DERABLES Final Result Performing Organization Address City/[facility]/ZIP Co de Phone Number [facility] [address] [place] [address], [facility] [phone] * HEPATITIS C ANTIBODY (03/15/2020 11:17 AM COMPUTER SPECIALIST) [facility] Hepatitis C Antibody Non-react desmond Non-reac tive 03/15/2020 12:20 PM COMPUTER SPECIALIST [facility] Comment:Hepatitis C Antibody screen indicates no serologic evidence of past or current infection with Hepatitis C Virus. Patients with unexplained liver disease who are immunocompromised or suspected of having acute Hepatitis C infection may benefit from Nucleic Acid Test (YOHAN) for Hepatitis C Viral RNA to confirm Hepatitis C status. Blood BLOOD SPECIMEN / Unknown Lab Venipuncture / Unknown 03/15/2020 11:17 AM COMPUTER SPECIALIST 03/15/2020 11:47 AM COMPUTER SPECIALIST Hua Galvan MD LAB - CHEMISTRY ORDERABLES Final Result Performing Organization Address [facility]/ZIP Co de Phone Number [facility] [address] [phone], [place] [facility] [phone] * ENDOSCOPY, COLON, DIAGNOSTIC (05/02/2018 2:52 PM CDT) [facility] Report Endoscopy POC Endoscopy Department Report _ Patient Name: Viviane Escalera Procedure Date: 05/02/2018 2:52 PM Date of : 1965 Classification: Outpatient Gender: Female _ Providers: Collin Sood MD, Brown Nuñez (Fellow) Referring MD: Procedure: Colonoscopy Indications: Follow-up of diverticula Medications: Monitored Anesthesia Care Description of Procedure: Pre-Anesthesia Assessment: - Prior to the procedure, a History and Physical was performed, and patient medications and allergies were reviewed. The patient's tolerance of previous anesthesia was also reviewed. The risks and benefits of the procedure and the sedation options and risks were discussed with the patient. All questions were answered, and informed consent was obtained. Prior Anticoagulants: The patient has taken no previous anticoagulant or antiplatelet agents. ASA Grade Assessment: III - A patient with severe systemic disease. After reviewing the risks and benefits, the patient was deemed in satisfactory condition to undergo the procedure. After I obtained informed consent, the scope was passed under direct vision. Throughout the procedure, the patient's blood pressure, pulse, and oxygen saturations were monitored continuously. The PCF-H190DL was introduced through the anus and advanced to the cecum, identified by appendiceal orifice and ileocecal valve. The quality of the bowel preparation was evaluated using the BBPS ([place] Bowel Preparation Scale) with scores of: Right Colon = 3 (entire mucosa seen well with no residual staining, small fragments of stool or opaque liquid), Transverse Colon = 3 (entire mucosa seen well with no residual staining, small fragments of stool or opaque liquid) and Left Colon = 3 (entire mucosa seen well with no residual staining, small fragments of stool or opaque liquid). The total BBPS score equals 9. The quality of the bowel preparation was excellent. The terminal ileum, ileocecal valve, appendiceal orifice, and rectum were photographed. Findings: There was evidence of a prior end sigmoid colostomy at the surgical stoma. This was patent and was characterized by healthy appearing mucosa. The anastomosis was traversed. Many large-mouthed diverticula were found in the sigmoid colon. The exam was otherwise normal throughout the examined colon. Estimated Blood Loss: Estimated blood loss was minimal. Complications: No immediate complications. Impression: 1) Patent end sigmoid colostomy, characterized by healthy appearing mucosa. 2) Diverticulosis in the sigmoid colon. 3) No specimens collected. Recommendation: - Patient has a contact number available for emergencies. The signs and symptoms of potential delayed complications were discussed with the patient. Return to normal activities tomorrow. Written discharge instructions were provided to the patient. - Discharge patient to home (ambulatory). - Resume previous diet. - Repeat colonoscopy in 10 years for screening purposes. - Follow-up in GI clinic Attending Participation: I was present and participated during the entire procedure, including non-english portions. Procedure Code(s): --- Professional --- 11680, Colonoscopy, flexible; diagnostic, including collection of specimen(s) by brushing or washing, when performed (separate procedure) Diagnosis Code(s): --- Professional --- Z98.0, Intestinal bypass and anastomosis status K57.30, Diverticulosis of large intestine without perforation or abscess without bleeding CPT copyright 2016 [employer]. All rights reserved. The codes documented in this report are preliminary and upon hydraulic press tender review may be revised to meet current compliance requirements. Collin Sood MD 05/02/2018 3:30:10 PM This report has been signed electronically. Note Initiated On: 05/02/2018 2:52 PM Number of Addenda: 0 [facility] [address] [facility] [place] [address] [facility] 05/02/2018 2:52 PM CDT us Collin Sood MD GI PROCEDURE ORDERABLES Edited Result - Final [facility] * HIV-1 HIV-2 ANTIGEN/ANTIBODY (12/06/2017 10:00 PM CDT) HIV Antigen/Antibod y 1 & 2 Non-reacti ve Non-react [place] 12/06/2017 10:34 PM CDT [facility] Comment: Neither HIV-1 p24 Antigen nor HIV-1/HIV-2 Antibodies are detected. 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 09/23/2019 Insurance [facility] Advance Directives Documents on File Type Date Recorded Patient Professional Fighter Expl anation Adv Directive/Living Will/POA 08/09/2018 8:09 AM * Full Code (Latest Code Status on File) Date Activated Date Inactivated Comments 04/10/2019 7:52 AM 04/18/2019 5:31 PM * Full Code Date Activated Date Inactivated Comments 10/08/2018 10:12 AM 10/10/2018 12:35 PM * Full Code Date Activated Date Inactivated Comments 08/08/2018 12:50 PM 08/10/2018 4:01 PM * Full Code Date Activated Date Inactivated Comments 07/31/2018 5:47 PM 08/04/2018 3:35 PM * Full Code Date Activated Date Inactivated Comments 12/07/2017 9:32 AM 12/16/2017 4:31 PM Care Teams Sumo Wrestler Relationship Specialty Start Date End Date Vernell Olguin DO [address] [place] [address] PCP - General Internal Medicine 09/10/23 Madonna Smith DO [address] [facility] 2L DIV OF [place] [address] Physician Internal Medicine 09/10/23
--- OUTSIDE RECORDS SUMMARY | 2024-09-19 08:48 | XMS_ITS | Clinical Summary ---
Author Organization [facility] Address [address] [place] [address] Care Team Providers Care Reports Analysis Manager Name Role Phone Hal Polanco MD Unavailable [phone] Collin Sood MD Unavailable [phone] Vee Mullen MD Unavailable Margarito Graff MD Unavailable Allergies Active Allergy Reactions Criticality Noted Date Comments Bupropion Other (see comment) Low 01/06/2020 Monhegan doped up Nsaids Other (see comment) 01/31/2020 History of gastric ulcer Piperacillin Sod-Tazobactam So Itching,Rash Medium 04/14/2019 Suspected allergy to Zosyn, systemic raised wheals with itching and redness. Medications mometasone-formoterol (DULERA) 100-5 MCG/ACT inhaler Inhale 1 puff into the lungs 2 (two) times daily as needed. 017 Active loratadine 10 MG tablet Take by mouth daily. 016 Active polyethylene glycol powderIndications:Const ipation, unspecified constipation type Take 17 g by mouth daily. 255 g 11 019 Active INSULIN SYRINGE .5CC/29G 29G X 1/2 0.5 ML MiscIndications:Migrain es 1 Syringe by Does not apply route as needed. To use with Sumatriptan subqu medication 10 each Active dilTIAZem CD 120 MG 24 hr capsule Take 120 mg by mouth daily. Active fluticasone propionate 50 MCG/ACT nasal sprayIndications:Allerg ic rhinitis, unspecified seasonality, unspecified trigger 2 sprays by Each Nostril route daily. 16 g 11 Active INCRUSE ELLIPTA 62.5 MCG/INH AEROSOL POWDER, BREATH ACTIVATED Inhale 1 puff into the lungs daily. Active Lidocaine 2 % GelIndications:Chronic right shoulder pain Apply 1 Application topically as needed. To shoulder and back daily as needed 1 Tube 3 Active OXYGEN CONCENTRATOR SUPPLY, DME,Indications:Chronic respiratory failure with hypoxia ([facility]) URGENT. Portable oxygen concentrator. [facility] code E1392. Pt unable to lift >5#, OA of Rt arm, Lt torn rotator cuff. Unable to have surgery d/t chronic lung disease. 1 Device Active montelukast (SINGULAIR) 10 MG tabletIndications:Aller gic rhinitis, unspecified seasonality, unspecified trigger Take 1 tablet (10 mg total) by mouth nightly at bedtime. 30 tablet 2 Active gabapentin 300 MG capsule Take 300 mg by mouth 3 (three) times daily. Active potassium chloride CR 10 MEQ Tab CR tablet Take 1 tablet (10 mEq total) by mouth every other day. 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 360 mL 1 Active albuterol sulfate HFA 108 (90 Base) MCG/ACT inhalerIndications:COPD exacerbation ([facility]) Inhale 2 puffs into the lungs every 4 (four) hours as needed. FOR WHEEZING 18 g 5 020 Active atorvastatin 40 MG tabletIndications:Pure hypercholesterolemia TAKE 1 TABLET(40 MG) BY MOUTH EVERY NIGHT AT BEDTIME 90 tablet 3 020 Active cyclobenzaprine (FLEXERIL) 10 MG tabletIndications:Chron ic back pain, unspecified back location, unspecified back pain laterality Take 1 tablet (10 mg total) by mouth daily as needed for Muscle Spasms. 90 tablet 1 020 Active nicotine polacrilex 4 MG Gum gumIndications:Cigarett e nicotine dependence without complication CHEW 1 PIECE OF GUM NEEDED FOR SMOKING CESSATION 20 each 2 Active ondansetron 4 MG disintegrating tabletIndications:Nause a DISSOLVE 1 TABLET ON THE TONGUE EVERY 8 HOURS NEEDED FOR NAUSEA 36 tablet 3 020 Active pantoprazole EC (PROTONIX) 40 MG tabletIndications:Gastr oesophageal reflux disease, unspecified whether esophagitis present Take 1 tablet (40 mg total) by mouth daily. 90 tablet 3 020 Active famotidine 20 MG tabletIndications:Gastr oesophageal reflux disease, unspecified whether esophagitis present Take 1 tablet (20 mg total) by mouth 2 (two) times daily. 60 tablet 1 020 Active SUMAtriptan Succinate 6 MG/0.5ML SolutionIndications:Devan coy without status migrainosus, not intractable, unspecified migraine type INJECT 0.5ML(6MG) UNDER THE SKIN AT ONSET OF HEADACHE. MAY REPEAT DOSE IN 2 HOURS ONCE DIRECTED. 2 mL 1 020 Active furosemide 20 MG tablet Take 1 tablet (20 mg total) by mouth 2 (two) times daily. Call to make an appointment. 60 tablet 021 Active isosorbide mononitrate ER (IMDUR) 30 MG 24 hr tablet TAKE 1 TABLET BY MOUTH DAILY 90 tablet 1 023 Active nitroglycerin (NITROSTAT) 0.4 MG SL tabletIndications:Other chest pain DISSOLVE 1 TABLET UNDER THE TONGUE EVERY 5 MINUTES NEEDED FOR CHEST PAIN. MAXIMUM DAILY DOSE IS 3 TABLETS, THEN CALL 911 25 tablet 2 025 Active Active Problems Problem Noted Date Diagnosed Date ADAMES (dyspnea on exertion) 07/29/2019 Restrictive lung disease 03/19/2019 Bronchiectasis ([facility]) 03/15/2019 Overview (04/21/2019): seen on CT Interstitial lung disease ([facility]) 09/13 Nonrheumatic aortic valve insufficiency 11/16/19 18 Essential (primary) hypertension 02/08/2017 Pure hypercholesterolemia 09/01/2015 Major depressive disorder, recurrent, moderate 1 Paroxysmal atrial fibrillation ([facility]) COPD (chronic obstructive pu lmonary disease) ([facility]) Allergic rhinitis Anxiety Asthma ([facility]) Atrial fibrillation ([facility]) Overview (12/31/2017): sees cardio, Satwani Back pain Migraines Paroxysmal A-fib ([facility]) Impaired fasting glucose Aortic regurgitation Overview (06/26/2018): mild to moderate Chronic respiratory failure ([facility]) GERD with esophagitis Resolved Problems Problem Noted Date Diagnosed Date Resolved Date Bowel perforation ([facility]) 12/06/2017 01/03/2018 Immunizations Immunization Administration Dates Next Due Flucelvax 2 YRS+ (Multi-Dose Vial) 11/17/2018 Influenza (Generic) 12/14/2016,12/09/2010 Influenza Adult (Generic) 12/11/2017 Pneumococcal (Pneumovax 23) 04/17/2017 Family History Medical History Relation Comments CAD Father Cancer Father metastatic Colon Cancer Father Diabetes Father Heart Disease Father Hyperlipidemia Father Stent Cardiac Father Asthma Mother COPD Mother Hyperlipidemia Mother Osteoporosis Mother Uterine Cancer Mother CAD Other 1 Colon Cancer Other 1 Stent Cardiac Other 1 Lung Cancer Other 2 Lung Cancer Sister 1 Other Sister 1 brain bladder cancer Sister 1 colorectal cancer Sister 2 Relation Status Comments Father Mother Other 1 Alive Other 2 Alive Sister 1 Sister 2 Social History Tobacco Use Types Packs/Day Years Used Date Smoking Tobacco: Former Cigarettes 1 35.3 1 983 - 06/2017 Smokeless Tobacco: Never Alcohol Use Standard Drinks/Week Comments No 0 (1 standard drink = 0.6 oz pur e alcohol) PHQ-2 Answer Date Recorded PHQ-2 Score - If the patient scores above 3, please move on to questions 3-9 0 01/06/2020 Comments No Sex and Gender Information Value Date Recorded Sex Assigned at Not on file Legal Sex Female 9:54 PM CDT Gender Identity Not on file Sexual Orientation Not on file Occupation Industry Job Start Date Job End Date Unemployed Not on file Not on file Not on file Not on file Not on file Not on file Not on file Last Filed Vital Signs Vital Sign Reading Time Taken Comments Blood Pressure 133/82 01/06/2020 9:27 AM EMPLOYEE RELATIONS MANAGER Pulse 71 01/06/2020 9:27 AM EMPLOYEE RELATIONS MANAGER Temperature 36.7 C (98 F) 01/06/2020 9:27 AM EMPLOYEE RELATIONS MANAGER Respiratory Rate 20 01/06/2020 9:27 AM EMPLOYEE RELATIONS MANAGER Oxygen Saturation 96% 01/06/2020 9:27 AM EMPLOYEE RELATIONS MANAGER Inhaled Oxygen Concentration - - Weight 85.4 kg (188 lb 3.2 oz) 01/06/2020 9:27 A M EMPLOYEE RELATIONS MANAGER Height 160 cm (5' 3) 01/06/2020 9:27 AM EMPLOYEE RELATIONS MANAGER Body Mass Index 33.34 01/06/2020 9:27 AM EMPLOYEE RELATIONS MANAGER Plan of Treatment Health Maintenance Due Date Last Done Comments Annual Physical 09/10/1967 Hepatitis C 1982 DTaP, Tdap and Td Vaccines ( 1 - Tdap) 09/10/1983 Zoster Vaccines (1 of 2) 2014 Pneumococcal Vaccine: 50+ Years (2 of 2 - PCV) 04/17/2018 04/17/2017 Mammogram Screening 01/18/2022 01/19/2020, 11/12/2018 COVID-19 Vaccine (1 - 2023-2 5 season) 2023 PHQ-2 (Physician [place]) 02/13/2024 RSV Immunization or 60+ Years (1 - Risk 60-74 years 1-dose series) 2024 Colorectal Cancer Screening Colonoscopy (10 Years) 05/02/2028 05/02/2018 Meningococcal B Vaccine Aged Out No l onger eligible based on patient's age to complete this topic Meningococcal Vaccine Aged Out No britney nayeli eligible based on patient's age to complete this topic RSV Immunizations Under 20 Months Aged Out No longer eligible b ased on patient's age to complete this topic Procedures Procedure Name Priority Date/Time Associated Diagnosis Comments MG SCREENING W SUHAIL MICKY DIGI Routine 01/19/2020 9:08 AM EMPLOYEE RELATIONS MANAGER Screening mammogram, encounter for COLONOSCOPY GENERIC (SCAN ORDER) Routine 05/02/2018 from Last 3 Months or Most Recently Relevant to Health Maintenance Results * MG SCREENING W SUHAIL MICKY DIGI (01/19/2020 9:08 AM EMPLOYEE RELATIONS MANAGER) Anatomical Region Laterality Modality Breast Bilateral Mammography 01/19/2020 10:1 0 AM EMPLOYEE RELATIONS MANAGER Impressions 01/19/2020 10:20 AM EMPLOYEE RELATIONS MANAGER IMPRESSION: No significant interval change. No mammographic evidence of malignancy. . RECOMMENDATION: Annual screening mammography bilaterally in 12 months. BI-RADS 2. Interpreted By: Ry Douglass, 01/19/2020 10:10 AM Narrative 01/19/2020 10:20 AM EMPLOYEE RELATIONS MANAGER EXAMINATION: MG SCREENING W SUHAIL MICKY DIGI INDICATIONS: Screening TECHNIQUE: Digital full field CC and MLO screening mammography bilaterally to include 3-D Tomosynthesis technique. This study was read with the assistance of a computer-aided detection system. HISTORY: No reported personal or first degree family history of breast cancer. No reported prior breast procedure or current breast complaint. COMPARISON: 11/12/2018 and 09/06/2016 TISSUE DENSITY: There are scattered areas of fibroglandular density. FINDINGS: Stable nodular fibroglandular asymmetries and probable intramammary lymph nodes bilaterally. No suspicious microcalcification or mass. No architectural distortion or developing asymmetry. No axillary adenopathy. us Melony Oro PA-C MAMMO Final Resu lt * COLONOSCOPY (05/02/2018) us Documents Scanned SCANNING Final Result [facility] [address] [address] from Last 3 Months or Most Recently Relevant to Health Maintenance Insurance [facility] Care Teams Reports Analysis Manager Relationship Specialty Start Date End Date Hal Polanco MD [address] [facility]. [address] [place] [address] [place] Dobie Worker CARDIOVASCULAR DISEASE 08/13/15 Collin Sood MD Three [facility]. [address] [address] GASTROENTEROLOGY 09/26/19 Vee Mullen MD [address] [facility] [address] [address] GASTROENTEROLOGY 10/05/19 Margarito Graff MD [address] [address] GASTROENTEROLOGY 01/31/20 Justo Snider [address] [place] [address] NEUROLOGY 12/31/17
--- OUTSIDE RECORDS SUMMARY | 2024-09-19 08:48 | XMS_ITS | Encounter Summary ---
Author Organization [facility] Address [address] [place] [address] Care Team Providers Care Tar And Ammonia Pump Operator Name Role Phone Hal Polanco MD Unavailable [phone] Melony Oro PA-C Primary Care Provider [phone] Collin Sood MD Unavailable [phone] Vee Mullen MD Unavailable [phone] Margarito Graff MD Unavailable Encounter Details Date Type Department Care Team (Late st Contact Info) Description 01/23/2018 Abstract HEALTH INFO [facility] Scanned, Documents Social History Tobacco Use Types Packs/Day Years [...] on filedocumented in this encounter Care Teams Tar And Ammonia Pump Operator Relationship Specialty Start Date End Date Melony Oro PA-C [address] [facility] [address] [place] [address] PCP - General 09/12/16 04/27/20 Hal Polanco MD Three [facility]. [address] [place] [address] [place] Audio Visual Secretary CARDIOVASCULAR DISEASE 08/13/15 Collin Sood MD [address] [facility] [address] [place] [address] GASTROENTEROLOGY 09/26/19 Vee Mullen MD [address] [facility] [address] [address] GASTROENTEROLOGY 10/05/19 Margarito Graff MD [address] [facility] [address] [place] [address] GASTROENTEROLOGY 01/31/20 Justo Snider [address] [place] [address] NEUROLOGY 12/31/17 documented as of this encounter
--- OUTSIDE RECORDS SUMMARY | 2024-09-19 08:48 | XMS_ITS | Encounter Summary ---
Author Organization [facility] Address Count includes the [facility] [place] [address] Care Team Providers Care Lead Blender Name Role Phone Hal Polanco MD Unavailable [phone] Kasia Tariq MD Primary Care Provider Unavailable Melony Oro PA-C Primary Care Provider [phone] Collin Sood MD Unavailable [phone] Vee Mullen MD Unavailable [phone] Margarito Graff MD Unavailable Encounter Details Date Type Department Care Team (Late st Contact Info) Description 09/11/2015 Abstract [facility] AT [address] [address] Jacinto Mcfarlane MA Social History Tobacco Use [...] Procedure Name Priority Date/Time Associated Diagnosis Comments CBC (OUTSIDE LAB) Routine 08/24/2015 BASIC METABOLIC PANEL Routine 08/24/2015 HEPATIC FUNCTION PANEL Routine 08/21/2015 PROTIME (OUTSIDE LAB) Routine 08/20/2015 LIPID PANEL Routine 08/20/2015 documented in this encounter Results * CBC (OUTSIDE LAB) (08/24/2015) WBC 10.9 HGB 12.7 HCT 39.2 PLT 310 08/24/2015 us Doc [facility] Abstract LAB-OUTSIDE/ABSTRACTED Final Result * BASIC METABOLIC PANEL (08/24/2015) Pathologist [facility] SODIUM S/P/B 143 POTASSIUM S/P/B 4.5 CO2 27 CHLORIDE S/P/B 106 GLUCOSE 115 CALCIUM S/P/B 9.1 BUN 15 CREATININE S/P/B 0.9 EGFR NON-AFR. AMER. 76 08/24/2015 us Doc [facility] Abstract LABORATORY Final Result * HEPATIC FUNCTION PANEL (08/21/2015) Pathologist [facility] ALBUMIN S/P/B 4.1 3.5 - 5.0 ALKALINE PHOSPHATASE S/P/B 54 ALT 10 AST 13 BILIRUBIN TOTAL S/P/B 0.2 TOTAL PROTEIN S/P/B 6.5 08/21/2015 us Doc [facility] Abstract LABORATORY Final Result * PROTIME (OUTSIDE LAB) (08/20/2015) Pathologist [facility] PROTIME 13.5 INR 1.02 08/20/2015 us Doc [facility] Abstract LAB-OUTSIDE/ABSTRACTED Final Result * LIPID PANEL (08/20/2015) CHOLESTEROL 174 HDL 50 TRIGLYCERIDES 85 LDL (CALCULATED) 107 08/20/2015 us Doc [facility] Abstract LABORATORY Edited Resul t - Final documented in this encounter Visit Diagnoses Not on filedocumented in this encounter Care Teams Lead Blender Relationship Specialty Start Date End Date Kasia Tariq MD PCP - General 09/08/15 09/11/16 Melony Oro, PAAceC [address] [place] [address] PCP - General 09/12/16 04/27/20 Hal Polanco MD [facility]. [address] [place] [address] [place] Technical Education Teacher CARDIOVASCULAR DISEASE 08/13/15 Collin Sood MD [address] [place] [address] GASTROENTEROLOGY 09/26/19 Vee Mullen MD [address] [facility] [address] [address] GASTROENTEROLOGY 10/05/19 Margarito Graff MD [address] [facility] [address] [place] [address] GASTROENTEROLOGY 01/31/20 Justo Snider [address] [place] [address] NEUROLOGY 12/31/17 documented as of this encounter
--- OUTSIDE RECORDS SUMMARY | 2024-09-19 08:48 | XMS_ITS | Encounter Summary ---
Author Organization [facility] Address [address] [facility] [facility] [place] [address] Care Team Providers Care Business Objects Developer Name Role Phone Vernell Olguin DO Primary Care Provider [phone] Madonna Smith DO Unavailable [phone] Reason for Visit * Reason Onset Date Comments Reminder Call 04/25/2024 No answer. Left voicemail. Encounter Details Date Type Department Care Team (Late st Contact Info) Description 04/25/2024 Telephone [facility] - Pulmonology [address] [facility], [place] [address] Vi Lebron MD [address] [place] [address] Reminder Call (No answer. Left voicemail.) Social History Tobacco Use Types Packs/Day Years Used Date Smoking Tobacco: Every Day Cigarettes 1.5 37 Started: 1984; Last attempted to quit: 2021 Smokeless Tobacco: Never Alcohol Use Standard Drinks/Week [...] on file Legal Sex Female 5:58 PM CONSERVATION EDUCATOR Gender Identity Not on file Sexual Orientation Not on file documented as of this encounter Functional Status * Is person deaf or have serious hearing difficulty? Answer Date of Assessment Author No 03/03/2024 12:15 PM CONSERVATION EDUCATOR Savanna Chandler RN * Is person blind or have serious difficulty seeing? Answer Date of Assessment Author No 03/03/2024 12:15 PM CONSERVATION EDUCATOR Savanna Chandler RN * Does person have serious difficulty walking/climbing stairs? Answer Date of Assessment Author No 03/03/2024 12:15 PM Savanna Stokes RN * Does person have difficulty dressing/bathing? Answer Date of Assessment Author No 03/03/2024 12:15 PM Savanna Stokes RN * Does person have difficulty doing errands alone? Answer Date of Assessment Author No 03/03/2024 12:15 PM Savanna Stokes RN documented as of this encounter Mental Status * Does person have difficulty concentrating/remembering/making decisions? Answer Entry Date Author No 03/03/2024 12:15 PM Savanna Stokes RN documented in this encounter Miscellaneous Notes * Telephone Encounter - Stephon Logan - 04/25/2024 2:41 PM CDT Called patient about appointment but no answer. Left a voicemail. documented in this encounter Plan of Treatment Upcoming Encounters Date Type Department Care Team (Late st Contact Info) Description 10/22/2024 8:00 AM CDT Appointment [facility] PFT [address] [place] [address] 11/03/2024 3:00 PM CDT Office Visit [facility] - Pulmonology [address] [facility], [place] [address] Curtis Miramontes MD [address] [facility] 2L DIV OF [facility] [place] [address] documented as of this encounter Goals Goal Patient Goal Type Associated Problems Recent Progress Patient-Stated? Author Medication Management General On track( 021 8:29 AM CONSERVATION EDUCATOR) Altagracia Sanderson, RN Note: Expected end date: [...] documented as of this encounter Care Teams Business Objects Developer Relationship Specialty Start Date End Date Vernell Olguin DO [address] [place] [address] PCP - General Internal Medicine 09/10/23 Madonna Smith DO [address] [facility] 2[place] [address] Physician Internal Medicine 09/10/23 documented as of this encounter
--- OUTSIDE RECORDS SUMMARY | 2024-09-19 08:48 | XMS_ITS | Encounter Summary ---
Author Organization [facility] Address [address] [place] [address] Care Team Providers Care Art Educator Name Role Phone Vernell Olguin DO Primary Care Provider [phone] Sarah Madonna Unavailable [phone] Encounter Details Date Type Department Care Team (Late st Contact Info) Description 08/21/2024 Results Follow-Up [facility] - Pulmonology [address] [facility], [place] [address] Mic Solano MD [address] [facility] [address] [place] [address] Social History Tobacco Use Types Packs/Day Years [...] on file Legal Sex Female 5:58 PM SENIOR WIND ENERGY CONSULTANT Gender Identity Not on file Sexual Orientation Not on file documented as of this encounter Functional Status * Is person deaf or have serious hearing difficulty? Answer Date of Assessment Author No 03/03/2024 12:15 PM Savanna Stokes RN * Is person blind or have serious difficulty seeing? Answer Date of Assessment Author No 03/03/2024 12:15 PM SENIOR WIND ENERGY CONSULTANT Savanna Chandler RN * Does person have [...] Savanna Stokes RN documented in this encounter Plan of Treatment Upcoming Encounters Date Type Department Care Team (Late st Contact Info) Description 10/22/2024 8:00 AM CDT Appointment [facility] PFT [address] [place] [address] 11/03/2024 3:00 PM CDT Office Visit [facility] - Pulmonology [address] [facility], [place] [address] Curtis Miramontes MD [address] [place] [address] 2L DIV OF [facility] [place] [address] documented as of this encounter Goals Goal Patient Goal Type Associated Problems Recent Progress Patient-Stated? Author Medication Management General On track( 021 8:29 AM SENIOR WIND ENERGY CONSULTANT) Altagracia Sanderson RN Note: Expected end date: [...] documented as of this encounter Care Teams Art Educator Relationship Specialty Start Date End Date Vernell Olguin DO [address] [place] [address] PCP - General Internal Medicine 09/10/23 Madonna Smith DO [address] [facility] 2L DIV OF [place] [address] Physician Internal Medicine 09/10/23 documented as of this encounter
--- OUTSIDE RECORDS SUMMARY | 2024-09-19 08:48 | XMS_ITS | Encounter Summary ---
Author Organization [facility] Address [address] [facility] [place] [address] Care Team Providers Care Electrician Journeyman Wireman Name Role Phone Kellie Edmonds APRN-COILED TUBING OPERATOR Primary Care Provider [phone] Madonna Smith DO Primary Care Provider [phone] Vernell Olguin DO Primary Care Provider [phone] Madonna Smith DO Unavailable [phone] Reason for Visit * Reason Onset Date Comments Appointment 05/23/2023 Encounter Details Date Type Department Care Team (Late st Contact Info) Description 05/23/2023 Telephone [facility] - Pulmonology [address] [place] [address], [facility] [place] [address] Vi Lebron MD [address] [place] [address] Appointment Social History Tobacco Use Types Packs/Day Years Used Date Smoking Tobacco: Former Cigarettes 1.5 20.9 1 999 - 01/12/2019 Smokeless Tobacco: Never Alcohol Use Standard Drinks/Week Comments Not Currently 0 (1 standard drink = 0.6 oz pur e alcohol) PHQ-2 Answer Date Recorded Patient Health Questionnaire-2 Score 0 03/19/2023 Comments No Sex and Gender Information Value Date Recorded Sex Assigned at Not on file Legal Sex Female 5:58 PM VISUAL ASSOCIATE Gender Identity Not on file Sexual Orientation [...] encounter Miscellaneous Notes * Telephone Encounter - Everardo Hurst MA - 05/23/2023 8:51 AM CDT Left VM documented in this encounter Plan of Treatment Upcoming Encounters Date Type Department Care Team (Late st Contact Info) Description 10/22/2024 8:00 AM CDT Appointment [facility] PFT [address] [place] [address] 11/03/2024 3:00 PM CDT Office Visit [facility] - Pulmonology [address] [facility] [place] [address] Curtis Miramontes MD [address] [place] [address] 2[address] [facility] [place] [address] documented as of this encounter Goals Goal Patient Goal Type Associated Problems Recent Progress Patient-Stated? Author Medication Management General On track( 021 8:29 AM VISUAL ASSOCIATE) Altagracia Sanderson RN Note: Expected end date: [...] documented as of this encounter Care Teams Electrician Journeyman Wireman Relationship Specialty Start Date End Date Kellie Edmonds APRN-DAYAN [address] [place] [address] PCP - General 03/28/22 08/08/23 Madonna Smith DO [address] [facility] 2L DIV OF [facility] [place] [address] PCP - General Internal Medicine 08/09/23 09/09/23 Vernell Olguin DO [address] [place] [address] PCP - General Internal Medicine 09/10/23 Madonna Smith DO [address] [facility] 2L DIV OF [facility] [place] [address] Physician Internal Medicine 09/10/23 documented as of this encounter
--- OUTSIDE RECORDS SUMMARY | 2024-09-19 08:48 | XMS_ITS | Encounter Summary ---
Author Organization [facility] Address [address] [place] [address] Care Team Providers Care Sales And Events Coordinator Name Role Phone Hal Polanco MD Unavailable [phone] Melony Oro PA-C Primary Care Provider [phone] Collin Sood MD Unavailable Vee Mullen MD Unavailable [phone] Margarito Graff MD Unavailable Encounter Details Date Type Department Care Team (Late st Contact Info) Description 10/02/2017 Abstract [facility] at [address] [address] Jacinto Mcfarlane MA Social History Tobacco Use Types Packs/Day Years Used Date Smoking Tobacco: Never Assessed Comments Unknown Sex and Gender Information Value Date Recorded Sex Assigned at Not on file Legal Sex Female 9:54 PM CDT Gender Identity Not on file Sexual Orientation Not on file documented as of this encounter Plan of Treatment Not on file documented as of this encounter Procedures Procedure Name Priority Date/Time Associated Diagnosis Comments CBC (OUTSIDE LAB) Routine 12/20/2016 documented in this encounter Results * CBC (OUTSIDE LAB) (12/20/2016) WBC 19.0 HGB 12.1 HCT 38.3 PLT 495 12/20/2016 us Doc [facility] Abstract LAB-OUTSIDE/ABSTRACTED Final Result documented in this encounter Visit Diagnoses Not on filedocumented in this encounter Care Teams Sales And Events Coordinator Relationship Specialty Start Date End Date Melony Oro PA-C [address] [facility] [address] [place] [address] PCP - General 09/12/16 04/27/20 Hal Polanco MD [facility]. [facility] [address] [place] [address] Morris Sticker Hand CARDIOVASCULAR DISEASE 08/13/15 Collin Sood MD [address] [facility] [address] [place] [address] GASTROENTEROLOGY 09/26/19 Vee Mullen MD [address] [facility] [address], [place] [address] GASTROENTEROLOGY 10/05/19 Margarito Graff MD [address] [facility] [address] [place] [address] GASTROENTEROLOGY 01/31/20 Justo Snider [address] [place] [address] NEUROLOGY 12/31/17 documented as of this encounter
--- OUTSIDE RECORDS SUMMARY | 2024-09-19 08:48 | XMS_ITS | Encounter Summary ---
Author Organization [facility] Address [address] [facility] [place] [address] Care Team Providers Care Chief Sales Officer Name Role Phone Rl Jones Sonali [facility] Primary Care Provide r Celestina Machado [facility] Primary Care Provider [phone] Kellie Edmonds [facility] Primary Care Provider [phone] Madonna Smith DO Primary Care Provider [phone] Vernell Olguin DO Primary Care Provider Madonna Smith DO Unavailable [phone] Reason for Visit * Reason Comments Refill Request Encounter Details Date Type Department Care Team (Late st Contact Info) Description 11/13/2020 Refill [facility] 8 ICU [address] [place] [address] Garret Harkins MD [address] [address] Refill Request Social History Tobacco Use Types Packs/Day Years Used Date Smoking Tobacco: Former Cigarettes 1.5 20.9 1 999 - 01/12/2019 Smokeless Tobacco: Never Alcohol Use Standard Drinks/Week Comments Not Currently 0 (1 standard drink = 0.6 oz pur e alcohol) Comments No Sex and Gender Information Value Date Recorded Sex Assigned at Not on file Legal Sex Female 5:58 PM STUNNER ANIMAL Gender Identity Not on file Sexual Orientation Not on file COVID-19 Exposure Response Date Recorded In the last month, have you been in contact with someone who was confirmed or suspected to have Coronavirus / COVID-19? No / Unsure 11/12/2020 12:50 PM CDT documented as of this encounter Functional Status [...] Info) Description 10/22/2024 8:00 AM CDT Appointment [facility] PFT [address] [place] [address] 11/03/2024 3:00 PM CDT Office Visit [facility] - Pulmonology [address] [facility], [place] [address] Curtis Miramontes MD [address] [place] [address] OF [facility] [place] [address] documented as of this encounter Goals Goal Patient Goal Type Associated Problems Recent Progress Patient-Stated? Author Medication Management General On track( 021 8:29 AM STUNNER ANIMAL) Altagracia Sanderson RN Note: Expected end date: [...] documented as of this encounter Care Teams Chief Sales Officer Relationship Specialty Start Date End Date Rl Jones, COMPOSITION ROOFER-[facility] PCP - General 03/30/20 04/27/21 Celestina Machado, COMPOSITION ROOFER-[facility] [address] [place] [address] PCP - General 04/28/21 03/27/22 Kellie Edmonds APRN-[facility] [address] [place] [address] PCP - General 03/28/22 08/08/23 Madonna Smith DO [address] [facility] 2L DIV OF [place] [address] PCP - General Internal Medicine 08/09/23 09/09/23 Vernell Olguin DO [address] [place] [address] PCP - General Internal Medicine 09/10/23 Madonna Smith DO [address] [facility] 2L DIV OF [place] [address] Physician Internal Medicine 09/10/23 documented as of this encounter
--- OUTSIDE RECORDS SUMMARY | 2024-09-19 08:48 | XMS_ITS | Clinical Summary ---
Author Organization [facility] Address [address] [facility] [address] [place] [address] Phone Care Team Providers Care Supplier Diversity Director Name Role Phone Mary Jo Pappas MD Unavailable [phone] Daniel Sutton MD Unavailable [phone] Lefty Graham DO Unavailable [phone] Melony Oro Primary Care Provider [phone] Allergies No known active allergies Medications pravastatin (PRAVACHOL) 40 MG Tablet TK 1 T PO NIGHTLY AT BEDTIME 8 6 Active dilTIAZem (CARDIZEM CD) 240 MG CAPSULE SR 24 HR TK 1 C PO QD 3 6 Active HYDROcodone-acet aminophen (NORCO) 7.5-325 MG Tablet TK 1 T PO TID PRN 0 7 Active Topiramate 50 MG Tablet TK 1 T PO BID 1 7 Active hydroCHLOROthiaz quita (MICROZIDE) 12.5 MG Capsule TK 1 C PO ONCE DAILY 0 7 Active Omeprazole 20 MG Tablet Delayed Response TK ONE T PO QAM 0 7 Active albuterol (PROVENTIL, VENTOLIN) (2.5 MG/3ML) 0.083% Nebulizer Soln USE 1 VIAL IN NEBULIZER Q 6 H PRN 0 7 Active lisinopril (PRINIVIL, ZESTRIL) 2.5 MG Tablet TK 1 T PO QD 0 6 Active fluticasone (FLONASE) 50 MCG/ACT Suspension 1-2 Sprays by Nasal route daily. Use in each nostril as directed. Active benzonatate (TESSALON) 100 MG Capsule Take 100 mg by mouth 3 times daily as needed for Cough. Active nitroGLYCERIN (NITROSTAT) 0.4 MG SL Tablet 0.4 mg by Sublingual route every 5 minutes as needed for Chest pain. Active nicotine polacrilex (NICORETTE) 2 MG Gum Take 2 mg by mouth as needed for Smoking cessation. Active fluconazole (DIFLUCAN) 100 MG Tablet Take 1 Tab by mouth daily. 21 Tab 0 7 Active Polyethylene Glycol 3350 (MIRALAX PO) Take by mouth. Ac tive ondansetron (ZOFRAN-ODT) 4 MG TABLET DISPERSIBLE TAKE 1 TABLET BY MOUTH EVERY 8 HOURS NEEDED NAUSEA 10 Tab 0 7 Active cyclobenzaprine (FLEXERIL) 10 MG Tablet Take 10 mg by mouth 3 times daily as needed. Active Mometasone Furo-Formoterol Fum (DULERA) 200-5 MCG/ACT Aerosol take by inhalation. Active montelukast (SINGULAIR) 10 MG Tablet Take 10 mg by mouth 2 times daily. Active prochlorperazine (COMPAZINE) 5 MG Tablet TAKE 1-2 TABLETS BY MOUTH EVERY 8 HOURS NEEDED FOR NAUSEA. 30 Tab 0 7 Active ondansetron (ZOFRAN ODT) 4 MG TABLET DISPERSIBLE Take 1 Tab by mouth every 8 hours as needed for Nausea. 10 Tab 0 7 Active metoclopramide (REGLAN) 10 MG Tablet Take 1 Tab by mouth 2 times daily. 60 Tab 3 7 Active metoclopramide (REGLAN) 10 MG Tablet TAKE 1 TABLET BY MOUTH TWICE DAILY 60 Tab 2 7 Active gabapentin (NEURONTIN) 300 MG Capsule Take 300 mg by mouth 3 times daily. Active PREDNISONE PO Take 10 mg by mouth 3 times daily. Active ALBUTEROL IN take 2 Puffs by inhalation 2 times daily. Active polyethylene glycol (GLYCOLAX, MIRALAX) Pack DISSOLVE 1 PACKET IN 4 TO 8 OZ OF LIQUID AND DRINK DAILY 1 Packet 3 8 Active ibuprofen (MOTRIN) 800 MG Tablet Take by mouth. 6 Active ibuprofen (MOTRIN) 800 MG Tablet TK 1 T PO TID AFTER MEALS 1 8 Active predniSONE (DELTASONE) 10 MG Tablet 0 8 Active levoFLOXacin (LEVAQUIN) 500 MG Tablet TK 1 T PO Q 24 H 0 8 Active SUMAtriptan (IMITREX) 6 MG/0.5ML Solution Auto-injector INJ 6 MG SC AOS OF MONTENEGRO UTD . MAY REPEAT IN 2 H ONCE 1 8 Active propranolol (INDERAL) 80 MG Tablet TK 1 T PO BID 1 8 Active ciprofloxacin (CIPRO) 750 MG Tablet Take 750 mg by mouth 2 times daily. Active ondansetron (ZOFRAN-ODT) 4 MG TABLET DISPERSIBLE DISSOLVE 1 TABLET IN MOUTH EVERY 8 HOURS NEEDED FOR NAUSEA 20 Tab 1 8 Active Family History Medical History Relation Name Comments Cancer Father Uterine Cancer Mother Lung Cancer Sister Brain Relation Name Status Comments Father Mother Sister Alive Social History Tobacco Use Types Packs/Day Years Used Date Smoking Tobacco: Former Cigarettes 1 30 0 04/20/1986 - 04/20/2016 Smokeless Tobacco: Never Tobacco Cessation:Counseling Given: Yes Comments:quit 03/31 Alcohol Use Standard Drinks/Week Comments No 0 (1 standard drink = 0.6 oz pur e alcohol) none Comments No Sex and Gender Information Value Date Recorded Sex Assigned at Not on file Legal Sex Female 9:02 AM OBJECTS CONSERVATOR Gender Identity Not on file Sexual Orientation Not on file 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 Not on file Not on file Last Filed Vital Signs Vital Sign Reading Time Taken Comments Blood Pressure 108/60 06/25/2017 12:52 PM CDT Pulse 76 06/25/2017 12:52 PM CDT Temperature 36 C (96.8 F) 02/28/2017 2:37 PM OBJECTS CONSERVATOR Respiratory Rate 14 02/28/2017 2:37 PM OBJECTS CONSERVATOR Oxygen Saturation 98% 06/25/2017 12:52 PM CDT Inhaled Oxygen Concentration - - Weight 79.2 kg (174 lb 9.6 oz) 06/25/2017 12:52 PM CDT Height 162.6 cm (5' 4) 06/25/2017 12:52 PM CDT Body Mass Index 29.97 06/25/2017 12:52 PM CDT Plan of Treatment Health Maintenance Due Date Last Done Comments Hepatitis C Virus (HCV) Screening 1965 TdaP Immunization 1964 Cologuard 2009 Immunochemical Fecal Occult Blood 2009 Pneumococcal Immunization (5 0+ years) (1 of 1 - PCV) 2014 Zoster Immunization (1 of 2) 2014 Colonoscopy 02/29/2020 02/28/2017 Colorectal Cancer Screening 02/29/2020 SARS-COV-2 Immunization ( season) 2023 05/31/2020, 05/10/2020 Influenza Immunization (#1) 10/13/202407/2018, 12/14/2016, 12/09/2010 Respiratory Syncytial Virus (RSV) Immunization (Adult) (1 - 1-dose 75+ series) 09/10/2039 Hepatitis B Immunization Aged Out No longer eligible based on patient's age to complete this topic Human Papillomavirus (HPV) Immunization Aged Out No longer eligible b ased on patient's age to complete this topic Meningococcal Immunization (ACWY) Aged Out No longer eligible b ased on patient's age to complete this topic Rotavirus Immunization Aged Out No lo nger eligible based on patient's age to complete this topic Insurance Care Teams Supplier Diversity Director Relationship Specialty Start Date End Date Melony Oro PA [address] [place] [address] PCP - General Physician Salesperson [employer] 02/28/17 Mary Jo Pappas MD [address] [id number] Internal Medicine 03/29/16 Daniel Sutton MD [address] [place] [address] Consulting Physician Emergency Medicine 03/29/16 Lefty Graham DO [address] [place] [address] Gastroenterology 03/29/16
--- OUTSIDE RECORDS SUMMARY | 2024-09-19 08:48 | XMS_ITS | Encounter Summary ---
Author Organization [facility] Address [facility] [place] [address] Care Team Providers Care Claim Service Representative Name Role Phone Hal Polanco MD Unavailable [phone] Melony Oro PA-C Primary Care Provider [phone] Collin Sood MD Unavailable [phone] Vee Mullen MD Unavailable [phone] Margarito Graff MD Unavailable Encounter Details Date Type Department Care Team (Late st Contact Info) Description 09/06/2017 Abstract [facility] at [address] [address] Jacinto Mcfarlane MA Social History [...] Procedure Name Priority Date/Time Associated Diagnosis Comments LIPID PANEL Routine 07/19/2017 THYROXINE, FREE (FT4) Routine 07/19/2017 THYROID STIM HORMONE TSH Routine 07/19/2017 CBC (OUTSIDE LAB) Routine 07/10/2017 COMPREHENSIVE METABOLIC PANEL Routine 07/10/2017 THYROID STIM HORMONE TSH Routine 07/10/2017 THYROID STIM HORMONE TSH Routine 07/10/2017 documented in this encounter Results * THYROID STIM HORMONE, TSH (07/19/2017) TSH 0.683 07/19/2017 us Doc [facility] Abstract LABORATORY Final Result * LIPID PANEL (07/19/2017) CHOLESTEROL 180 HDL 50 TRIGLYCERIDES 83 LDL (CALCULATED) 102 07/19/2017 us Doc [facility] Abstract LABORATORY Final Result * THYROXINE, FREE (FT4) (07/19/2017) FREE T4 0.98 07/19/2017 us Doc [facility] Abstract LABORATORY Final Result * THYROID STIM HORMONE, TSH (07/10/2017) TSH 1.860 07/10/2017 us Doc [facility] Abstract LABORATORY Final Result * COMPREHENSIVE METABOLIC PANEL (07/10/2017) SODIUM S/P/B 142 POTASSIUM S/P/B 3.8 CO2 27 CHLORIDE S/P/B 107 GLUCOSE 94 mg/dL CALCIUM S/P/B 8.8 BUN 20 CREATININE S/P/B 1.0 0.5 - 1.0 EGFR NON-AFR. AMER. 58 <=90 ALKALINE PHOSPHATASE S/P/B 43 ALT 14 AST 22 BILIRUBIN TOTAL S/P/B 0.4 ALBUMIN S/P/B 3.8 3.5 - 5.0 TOTAL PROTEIN S/P/B 7.0 07/10/2017 us Doc [facility] Abstract LABORATORY Final Result * THYROID STIM HORMONE, TSH (07/10/2017) TSH 1.860 07/10/2017 us Doc [facility] Abstract LABORATORY Final Result * CBC (OUTSIDE LAB) (07/10/2017) WBC 9.9 HGB 12.1 HCT 36.8 PLT 262 07/10/2017 us Doc [facility] Abstract LAB-OUTSIDE/ABSTRACTED Final Result documented in this encounter Visit Diagnoses Not on filedocumented in this encounter Care Teams Claim Service Representative Relationship Specialty Start Date End Date Melony Oro PA-C [address] [facility] [address] [place] [address] PCP - General 09/12/16 04/27/20 Hal Polanco MD [facility]. [address] [place] [address] [place] Transit Clerk CARDIOVASCULAR DISEASE 08/13/15 Collin Sood MD [address] [facility] [address] [place] [address] GASTROENTEROLOGY 09/26/19 Vee Mullen MD [address] [place] [address] GASTROENTEROLOGY 10/05/19 Margarito Graff MD [address] [address] GASTROENTEROLOGY 01/31/20 Justo Snider [address] [place] [address] NEUROLOGY 12/31/17 documented as of this encounter
--- OUTSIDE RECORDS SUMMARY | 2024-09-19 08:48 | XMS_ITS | Encounter Summary ---
Author Organization [facility] Address [address] [place] [address] Care Team Providers Care Splitting Machine Operator Name Role Phone Hal Polanco MD Unavailable [phone] Melony Oro PA-C Primary Care Provider [phone] Collin Sood MD Unavailable [phone] Vee Mullen MD Unavailable [phone] Margarito Graff MD Unavailable Encounter Details Date Type Department Care Team (Late st Contact Info) Description 07/20/2018 Abstract [facility] CONVERSION [address] [place] [id number] , Generic Conversion, Social History Tobacco Use Types Packs/Day Years Used Date Smoking Tobacco: Some Days Cigarettes 1 35.3 Started: 1982; Last attempted to quit: 06/2017 Smokeless Tobacco: Never Alcohol Use Standard [...] on filedocumented in this encounter Care Teams Splitting Machine Operator Relationship Specialty Start Date End Date Melony Oro PA-C [address] [facility] [address] [place] [address] PCP - General 09/12/16 04/27/20 Hal Polanco MD Three [facility]. [address] [place] [address] Fred Student Career Development Specialist CARDIOVASCULAR DISEASE 08/13/15 Collin Sood MD [address] [facility] [address] [place] [address] GASTROENTEROLOGY 09/26/19 Vee Mullen MD [address] [facility] [address] [address] GASTROENTEROLOGY 10/05/19 Margarito Graff MD [address] [address] GASTROENTEROLOGY 01/31/20 Justo Snider [address] [place] [address] NEUROLOGY 12/31/17 documented as of this encounter
--- OUTSIDE RECORDS SUMMARY | 2024-09-19 08:48 | XMS_ITS | Encounter Summary ---
Author Organization [facility] Address [address] [facility] [place] [address] Care Team Providers Care Family Educator Name Role Phone Rl Jones Sonali [facility] Primary Care Provide r Celestina Machado [facility] Primary Care Provider [phone] Kellie Edmonds [facility] Primary Care Provider [phone] Madonna Smith DO Primary Care Provider [phone] Vernell Olguin DO Primary Care Provider Madonna Smith DO Unavailable [phone] Reason for Visit * Reason Comments Refill Request Encounter Details Date Type Department Care Team (Late st Contact Info) Description 01/16/2021 Refill [facility] 8 ICU [address] [place] [address] Garret Harkins MD [address] [address] Refill Request Social History Tobacco Use Types Packs/Day Years Used Date Smoking Tobacco: Former Cigarettes 1.5 20.9 1 999 - 01/12/2019 Smokeless Tobacco: Never Alcohol Use Standard Drinks/Week Comments Not Currently 0 (1 standard drink = 0.6 oz pur e alcohol) Comments No Sex and Gender Information Value Date Recorded Sex Assigned at Not on file Legal Sex Female 5:58 PM APPOINTMENT CLERK Gender Identity Not on file Sexual Orientation Not on file COVID-19 Exposure Response Date Recorded In the last month, have you been in contact with someone who was confirmed or suspected to have Coronavirus / COVID-19? No / Unsure 01/05/2021 10:03 AM APPOINTMENT CLERK documented as of this encounter Functional Status [...] Info) Description 10/22/2024 8:00 AM CDT Appointment [facility] PFT [address] [place] [address] 11/03/2024 3:00 PM CDT Office Visit [facility] - Pulmonology [address] [facility] [place] [address] Curtis Miramontes MD [address] [place] [address] OF [facility] [place] [address] documented as of this encounter Goals Goal Patient Goal Type Associated Problems Recent Progress Patient-Stated? Author Medication Management General On track( 021 8:29 AM APPOINTMENT CLERK) Altagracia Sanderson RN Note: Expected end date: [...] documented as of this encounter Care Teams Family Educator Relationship Specialty Start Date End Date Rl Jones, INSURANCE OFFICE MANAGER-RAW SILK GRADER PCP - General 03/30/20 04/27/21 Celestina Machado, INSURANCE OFFICE MANAGER-RAW SILK GRADER [address] [place] [address] PCP - General 04/28/21 03/27/22 Kellie Edmonds APRN-[facility] [address] [place] [address] PCP - General 03/28/22 08/08/23 Madonna Smith DO [address] [facility] [address] [place] [address] PCP - General Internal Medicine 08/09/23 09/09/23 Vernell Olguin DO [address] [place] [address] PCP - General Internal Medicine 09/10/23 Madonna Smith DO [address] [facility] [address] [place] [address] Physician Internal Medicine 09/10/23 documented as of this encounter
--- OUTSIDE RECORDS SUMMARY | 2024-09-19 08:48 | XMS_ITS | Encounter Summary ---
Author Organization [facility] Address [address] [place] [address] Care Team Providers Care Strategic Planning Consultant Name Role Phone Hal Polanco MD Unavailable [phone] Melony Oro PA-C Primary Care Provider [phone] Collin Sood MD Unavailable [phone] Vee Mullen MD Unavailable [phone] Margarito Graff MD Unavailable Encounter Details Date [...] on filedocumented in this encounter Care Teams Strategic Planning Consultant Relationship Specialty Start Date End Date Melony Oro PA-C [address] [facility] [address] [place] [address] PCP - General 09/12/16 04/27/20 Hal Polanco MD Three [facility]. [address] [place] [address] [place] Cardiac Sonographer CARDIOVASCULAR DISEASE 08/13/15 Collin Sood MD [address] [facility] [address] [place] [address] GASTROENTEROLOGY 09/26/19 Vee Mullen MD [address] [facility] [address] [address] GASTROENTEROLOGY 10/05/19 Margarito Graff MD [address] [facility] [address] [place] [address] GASTROENTEROLOGY 01/31/20 Justo Snider [address] [place] [address] NEUROLOGY 12/31/17 documented as of this encounter
--- NOTE | 2024-09-19 15:45 | P.PCNPFT_ITS ---
PFT Procedure Performed PFT Procedure Performed Spirometry with Pre/Post Bronchodilator Plethysmography (Lung Vol) Diffusing Cap (DLCO) Flow Vol Loop PFT Interpretation This is a pulmonary function test with pre and post-bronchodilator spirometry, plethysmography and diffusing capacity. The test was performed and results interpreted in accordance with the 2019 and 2005 ATS/ERS Task Force guidelines respectively using the Global Lung Function Initiative-2012 reference equations. Patient demonstrated good effort and cooperation. Reproducibility criteria were met. The quality of the pre bronchodilator spirometry maneuver was Grade A and post bronchodilator spirometry maneuver was Grade B. Findings: Spirometry: The contour the inspiratory and expiratory flow tracing are normal. The pre bronchodilator FVC is 1.70 L, 47% predicted. The pre bronchodilator FEV1 is 1.40 L, 49% predicted. The pre bronchodilator FEV1: FVC ratio is 82%. The post bronchodilator FVC is 1.68 L, representing 1% decrease. The post bronchodilator FEV1 is 1.42 L, representing 1% increase. The post bronchodilator FEV1: FVC ratio is 84%. Plethysmography: The total lung capacity is 3.23 L, 58% predicted. The functional residual capacity is 1.95 L, 70% predicted. The residual volume is 1.40 L, 75% predicted. The residual volume: Total lung capacity ratio is 43%. Diffusing capacity: The diffusing capacity unadjusted for hemoglobin and carboxyhemoglobin is 7.0, 28% predicted. The diffusing capacity adjusted for alveolar volume is 3.00, 65% predicted. Impression: There is decreased total lung capacity, increased residual volume:Total lung capacity ratio, a normal FEV1:FVC ratio and decreased FEV1 in dicating a complex restrictive abnormality with a severe decrease in the FEV1. The diffusing capacity unadjusted for hemoglobin and carboxyhemoglobin is severely decreased and remains mildly decreased when adjusted for alveolar volume. There are no prior studies for comparison
== END 2024-09-19 08:40 | disposition home or self-care (01) ==
LOC: ANHPFT 08:42
DX: J84.9 Interstitial pulmonary disease, unspecified (principal)
CPT/HCPCS: 94060; 94375; 94726; 94729